=== PATIENT | female | born 1960 | race Caucasian/White ===

== ENCOUNTER 2016-11-03 14:56 | Inpatient (IN) ==
[2016-11-03] MEDS ORDERED: Vancomycin 1,250 MG in D5% in Water 250 ML IVPB ONE (17:20)
[2016-11-03] MEDS ORDERED: Piperacillin/Tazobactam 3.375 GM in D5% in Water (Mini-Bag+) 100 ML IVPB ONE (17:20)
[2016-11-03] MEDS ORDERED: Ondansetron 4 MG/2 ML VIAL IVP ONE (17:26)
--- NOTE | 2016-11-03 17:26 | Emergency Department Note ---
Disposition Clinical Impression: Cellulitis Qualifiers: Site of cellulitis: buttock Qualified Code(s): L03.317 - Cellulitis of buttock Disposition: Admitted As Inpatient Condition: Fair Time of Disposition: 19:00 General Adult HPI - General Chief complaint: ED Wound/Laceration Stated complaint: csyst on buttocks Time Seen by Provider: 11/03/16 17:08 Source: patient, family Mode of arrival: private vehicle Limitations: no limitations Nursing Notes Reviewed: Yes Vital Signs Reviewed: Yes - History of Present Illness HPI Narrative: 56-year-old female with past medical history of diabetes presents with 3-4 days of worsening abscess and cellulitis to her right buttock. The boil was initially located in the intergluteal cleft with cellulitis that extended across the majority of her right buttock. She notes associated fever and chills and nausea without vomiting. She denies any spontaneous drainage. She denies any prior history of abscess. She states that her symptoms were partially improved with 800 mg ibuprofen a few hours prior to arrival. They are worse with sitting on her buttocks. They are not changed with bowel movements. She denies recent hospitalizations or immunocompromised state. She states that her sugars usually run 150-160. She denies any associated headache, confusion, blurred vision, difficulty swallowing, chest pain or shortness of breath, cough, abdominal pain, changes in bowel movements or urination, edema. Pain Scale: 7 - Related Data Home Medications Medication Instructions Recorded Confirmed Alprazolam [Xanax] 2 mg PO TID 11/03/16 11/03/16 Budesonide/Formoterol 80/4.5 2 puff IH BID 11/03/16 11/03/16 [Symbicort 80/4.5] Calcium Carbonate/Vitamin D3 1 each PO DAILY 11/03/16 11/03/16 [Calcium 500-Vit D3 200 Tablet] Cholecalciferol (Vitamin D3) 2,000 unit PO DAILY 11/03/16 11/03/16 [Vitamin D] Donepezil [Aricept] 20 mg PO DAILY 11/03/16 11/03/16 Gabapentin [Neurontin] 800 mg PO QID 11/03/16 11/03/16 Guaifenesin [Mucinex] 600 mg PO Q12H 11/03/16 11/03/16 Metformin HCl [Metformin HCl ER] 1,500 mg PO QAM 11/03/16 11/03/16 Multivitamin [Multi-Day Vitamins] 1 each PO DAILY 11/03/16 11/03/16 OLANZapine [Zyprexa] 30 mg PO HS 11/03/16 11/03/16 Omeprazole [PriLOSEC] 80 mg PO DAILY 11/03/16 11/03/16 Pravastatin Sodium [Pravachol] 80 mg PO HS 11/03/16 11/03/16 Trazodone HCl 300 mg PO HS 11/03/16 11/03/16 Allergies Allergy/AdvReac Type Severity Reaction Status Date / Time No Known Allergies Allergy Verified 11/03/16 15:28 All systems ED: reviewed and negative except as stated. Past Medical History - Past Medical History Attestation: Yes The following information was validated with the patient. Source: patient Medical history: Reports: diabetes Psychiatric history: Reports: bipolar - Social History Smoking Status: Never smoker Alcohol use: Reports: none Drug use: Reports: none Physical Exam - Head Head exam: atraumatic, normocephalic, normal inspection - Eye Eye exam: Present: normal appearance, PERRL, EOMI - ENT ENT exam: normal exam, normal oropharynx, mucous membranes moist - Neck Neck exam: Present: normal inspection, full ROM, trachea midline - Chest Chest inspection: Present: normal inspection, symmetric chest wall rise - Respiratory Respiratory exam: Clear to auscultation bilaterally without wheezes rales or rhonchi Cardiovascular Cardiovascular exam: Present: regular rate, normal rhythm, normal heart sounds - Abdominal Exam Abdominal exam: Present: soft, Non-Tender. Absent: tenderness, distention, guarding, rebound, rigidity - Extremities Exam Extremities exam: Present: normal inspection, full ROM - Back Exam Buttocks showed borderline to the right lower intergluteal cleft along with 10 cm area of cellulitis along the right medial buttock. Margins were drawn around cellulitis with a skin marker. - Psychiatric Psychiatric exam: Present: normal affect, normal mood - Skin Skin exam: Present: warm, diaphoretic, intact, normal color - General Limitations: no limitations General appearance: alert, in no apparent distress Course - Reevaluation(s) Reevaluation #1: Blood cells elevated at 14. Lactate is normal. Chemistries are normal. Patient remains diaphoretic and ill-appearing despite Tylenol and 1-1/2 L of normal saline. She is receiving the remainder of her second liter of normal saline as well as vancomycin and Rocephin this time. CT scan is not performed yet. Patient is signed out to Dr. Yeboah who will follow the patient's imaging results and likely admit the patient after imaging. Time: 18:59 Vital Signs Temperature 98.3 F 11/03/16 15:26 Pulse Rate 99 11/03/16 15:26 Respiratory Rate 16 11/03/16 15:26 Blood Pressure 113/73 11/03/16 15:26 O2 Sat by Pulse Oximetry 94 11/03/16 15:26 Temperature 98.2 F 11/04/16 07:18 Pulse Rate 112 11/04/16 07:18 Respiratory Rate 16 11/04/16 08:09 Blood Pressure 107/67 11/04/16 08:45 O2 Sat by Pulse Oximetry 93 11/04/16 08:09 Oxygen Delivery Oxygen Delivery Nasal Cannula Medical Decision Making - Lab Data Result diagrams: 11/04/16 04:58 11/04/16 04:58 Lab Results 11/03/16 11/03/16 11/03/16 Range/Units 17:45 17:45 17:45 WBC 14.1 H (4.3-11.1) K/mcL RBC 5.08 H (3.82-4.97) M/mcL Hgb 14.1 (11.5-15.4) g/dL Hct 44.5 (35.3-44.9) % MCV 87.6 (83.0-100.0) fL MCH 27.8 L (28.0-33.3) pg MCHC 31.7 (31.6-35.5) g/dL RDW 13.3 (11.5-14.5) % Plt Count 238 (140-400) K/mcL MPV 9.3 L (9.4-12.4) fL Immature Gran % 0.4 (0-4) % Seg Neutrophils % 73.5 % Lymphocytes % 17.0 % Monocytes % 7.9 % Eosinophils % 1.0 % Basophils % 0.2 % Neutrophils # 10.4 H (1.6-8.9) K/mcL Lymphocytes # 2.4 (0.6-4.6) K/mcL Monocytes # 1.1 (0.0-1.3) K/mcL Eosinophils # 0.1 (0.0-0.6) K/mcL Basophils # 0.0 (0.0-0.2) K/mcL Sodium 139 (136-145) mEq/L Potassium 4.0 (3.5-4.5) mEq/L Chloride 102 (98-109) mEq/L Carbon Dioxide 26 (19-29) mEq/L BUN 8 (7-20) mg/dL Creatinine 0.71 (0.57-1.11) mg/dL Est GFR ( Amer) > 60 (> 60) Est GFR (Non-Af Amer) > 60 (> 60) BUN/Creatinine Ratio 11 (6-26) Glucose 101 H (70-99) mg/dL POC Glucose (58-89) Calculated Osmolality 286 (280-300) Lactic Acid 1.6 (0.5-2.2) mmol/L Calcium 9.8 (8.6-10.8) mg/dL Troponin I (0-0.03) ng/mL 11/03/16 11/03/16 Range/Units 17:45 22:36 WBC (4.3-11.1) K/mcL RBC (3.82-4.97) M/mcL Hgb (11.5-15.4) g/dL Hct (35.3-44.9) % MCV (83.0-100.0) fL MCH (28.0-33.3) pg MCHC (31.6-35.5) g/dL RDW (11.5-14.5) % Plt Count (140-400) K/mcL MPV (9.4-12.4) fL Immature Gran % (0-4) % Seg Neutrophils % % Lymphocytes % % Monocytes % % Eosinophils % % Basophils % % Neutrophils # (1.6-8.9) K/mcL Lymphocytes # (0.6-4.6) K/mcL Monocytes # (0.0-1.3) K/mcL Eosinophils # (0.0-0.6) K/mcL Basophils # (0.0-0.2) K/mcL Sodium (136-145) mEq/L Potassium (3.5-4.5) mEq/L Chloride (98-109) mEq/L Carbon Dioxide (19-29) mEq/L BUN (7-20) mg/dL Creatinine (0.57-1.11) mg/dL Est GFR ( Amer) (> 60) Est GFR (Non-Af Amer) (> 60) BUN/Creatinine Ratio (6-26) Glucose (70-99) mg/dL POC Glucose 227 H (58-89) Calculated Osmolality (280-300) Lactic Acid (0.5-2.2) mmol/L Calcium (8.6-10.8) mg/dL Troponin I 0.00 (0-0.03) ng/mL - EKG Data EKG #1 EKG attestation: Yes I reviewed and interpreted this EKG. EKG results narrative: EKG shows normal sinus rhythm at 93 with normal axis and intervals. No ST elevation or depression. No T-wave inversions or flattening. No pathologic Q waves. No old EKG available for comparison. Attestation Statement - Attestation Attestation: I examined this patient and my medical decision-making was reviewed with the FENCE POST CUTTER/PA/Advanced Practice Nurse/Resident Physician. I agree with the documented findings, disposition and treatment plan as described except to the extent set forth below. Patient emergency department with an abscess on her buttock. Onset 3 days ago. States a fever at home of 104. Denies history of the same. On examination patient has an abscess over the right buttock with a large area of cellulitis. Plan. Afebrile. Labs. CT pelvis. IV antibiotic. Likely admission. Signed out to assistant casino shift manager at 1900.
[2016-11-03] MEDS ORDERED: *HR* Morphine 2 MG/ML SYRINGE IVP ONE (17:27)
[2016-11-03] MEDS: 0.9 % Sodium Chloride 1,000 ML IVC SCH ×2 (17:48→18:37)
[2016-11-03 18:12] LABS: Basophils % 0.2 %; Eosinophils # 0.1 K/mcL (0.0-0.6); Hematocrit 44.5 % (35.3-44.9); Hemoglobin 14.1 g/dL (11.5-15.4); Immature Granulocytes % 0.4 % (0-4); Lymphocytes # 2.4 K/mcL (0.6-4.6); Mean Corpuscular HGB Conc 31.7 g/dL (31.6-35.5); Mean Corpuscular Hemoglobin 27.8 pg (28.0-33.3); Mean Corpuscular Volume 87.6 fL (83.0-100.0); Mean Platelet Volume 9.3 fL (9.4-12.4); Monocytes # 1.1 K/mcL (0.0-1.3); Monocytes % 7.9 %; Neutrophils # 10.4 K/mcL (1.6-8.9); Platelet Count 238 K/mcL (140-400); Red Blood Count 5.08 M/mcL (3.82-4.97); Red Cell Distribution Width 13.3 % (11.5-14.5); Segmented Neutrophils % 73.5 %
[2016-11-03 18:31] LABS: BUN/Creatinine Ratio 11 (6-26); Blood Urea Nitrogen 8 mg/dL (7-20); Calcium 9.8 mg/dL (8.6-10.8); Carbon Dioxide 26 mEq/L (19-29); Chloride 102 mEq/L (98-109); Glucose 101 mg/dL (70-99); Osmolality,Calculated 286 (280-300); Sodium 139 mEq/L (136-145); eGFR For African Americans > 60 (> 60); eGFR For Non-African Americans > 60 (> 60)
--- NOTE | 2016-11-03 19:10 | Emergency Department Note ---
Disposition Clinical Impression: Cellulitis Qualifiers: Site of cellulitis: buttock Qualified Code(s): L03.317 - Cellulitis of buttock Disposition: Admitted As Inpatient Condition: Fair Referrals: NO,PCP [Primary Care Provider] - Forms: ED Satisfaction Letter Time of Disposition: 19:10 General Adult HPI - General Chief complaint: ED Wound/Laceration Stated complaint: cyst on buttocks Time Seen by Provider: 11/03/16 17:08 Source: patient, family Mode of arrival: private vehicle Limitations: no limitations - History of Present Illness Pain Scale: 7 - Related Data Allergies Allergy/AdvReac Type Severity Reaction Status Date / Time No Known Allergies Allergy Verified 11/03/16 15:28 Past Medical History - Past Medical History Medical history: Reports: diabetes Psychiatric history: Reports: bipolar - Social History Smoking Status: Never smoker Alcohol use: Reports: none Drug use: Reports: none Physical Exam - General Limitations: no limitations General appearance: alert, in no apparent distress Course Vital Signs Temperature 98.3 F 11/03/16 15:26 Pulse Rate 99 11/03/16 15:26 Respiratory Rate 16 11/03/16 15:26 Blood Pressure 113/73 11/03/16 15:26 O2 Sat by Pulse Oximetry 94 11/03/16 15:26 Temperature 98.3 F 11/03/16 15:26 Pulse Rate 76 11/03/16 18:39 Respiratory Rate 18 11/03/16 18:39 Blood Pressure 124/94 11/03/16 18:39 O2 Sat by Pulse Oximetry 98 11/03/16 18:39 Oxygen Delivery Oxygen Delivery Nasal Cannula Medical Decision Making - Lab Data Lab results reviewed: Yes I reviewed the patient's lab results. Result diagrams: 11/03/16 17:45 11/03/16 17:45 Lab Results 11/03/16 11/03/16 11/03/16 Range/Units 17:45 17:45 17:45 WBC 14.1 H (4.3-11.1) K/mcL RBC 5.08 H (3.82-4.97) M/mcL Hgb 14.1 (11.5-15.4) g/dL Hct 44.5 (35.3-44.9) % MCV 87.6 (83.0-100.0) fL MCH 27.8 L (28.0-33.3) pg MCHC 31.7 (31.6-35.5) g/dL RDW 13.3 (11.5-14.5) % Plt Count 238 (140-400) K/mcL MPV 9.3 L (9.4-12.4) fL Immature Gran % 0.4 (0-4) % Seg Neutrophils % 73.5 % Lymphocytes % 17.0 % Monocytes % 7.9 % Eosinophils % 1.0 % Basophils % 0.2 % Neutrophils # 10.4 H (1.6-8.9) K/mcL Lymphocytes # 2.4 (0.6-4.6) K/mcL Monocytes # 1.1 (0.0-1.3) K/mcL Eosinophils # 0.1 (0.0-0.6) K/mcL Basophils # 0.0 (0.0-0.2) K/mcL Sodium 139 (136-145) mEq/L Potassium 4.0 (3.5-4.5) mEq/L Chloride 102 (98-109) mEq/L Carbon Dioxide 26 (19-29) mEq/L BUN 8 (7-20) mg/dL Creatinine 0.71 (0.57-1.11) mg/dL Est GFR ( Amer) > 60 (> 60) Est GFR (Non-Af Amer) > 60 (> 60) BUN/Creatinine Ratio 11 (6-26) Glucose 101 H (70-99) mg/dL Calculated Osmolality 286 (280-300) Lactic Acid 1.6 (0.5-2.2) mmol/L Calcium 9.8 (8.6-10.8) mg/dL Troponin I (0-0.03) ng/mL 11/03/16 Range/Units 17:45 WBC (4.3-11.1) K/mcL RBC (3.82-4.97) M/mcL Hgb (11.5-15.4) g/dL Hct (35.3-44.9) % MCV (83.0-100.0) fL MCH (28.0-33.3) pg MCHC (31.6-35.5) g/dL RDW (11.5-14.5) % Plt Count (140-400) K/mcL MPV (9.4-12.4) fL Immature Gran % (0-4) % Seg Neutrophils % % Lymphocytes % % Monocytes % % Eosinophils % % Basophils % % Neutrophils # (1.6-8.9) K/mcL Lymphocytes # (0.6-4.6) K/mcL Monocytes # (0.0-1.3) K/mcL Eosinophils # (0.0-0.6) K/mcL Basophils # (0.0-0.2) K/mcL Sodium (136-145) mEq/L Potassium (3.5-4.5) mEq/L Chloride (98-109) mEq/L Carbon Dioxide (19-29) mEq/L BUN (7-20) mg/dL Creatinine (0.57-1.11) mg/dL Est GFR ( Amer) (> 60) Est GFR (Non-Af Amer) (> 60) BUN/Creatinine Ratio (6-26) Glucose (70-99) mg/dL Calculated Osmolality (280-300) Lactic Acid (0.5-2.2) mmol/L Calcium (8.6-10.8) mg/dL Troponin I 0.00 (0-0.03) ng/mL - Radiology Data Radiology results reviewed: Yes I reviewed the patient's radiology results. Attestation Statement - Attestation Attestation: Care assumed from at [address] abdomen and pelvis. CT images reviewed by me showing right buttock that stranding without focal fluid collection. Patient has a tender erythematous lesion to her right buttock consistent with cellulitis. Admission to the medicine service requested.
[2016-11-03] MEDS ORDERED: Naloxone 0.4 MG/ML INJ IVP PRN (21:04)
[2016-11-03] MEDS ORDERED: *HR* Dextrose 50 % in Water (Syg) 50 ML SYRINGE IVP PRN (21:07)
[2016-11-03] MEDS ORDERED: Dextrose Gel 15 GM PO PRN ×2 (21:07)
[2016-11-03] MEDS ORDERED: D5% in Water 1,000 ML IVC PRN (21:07)
--- NOTE | 2016-11-03 21:33 | Internal Med History&Physical ---
Date of Encounter: 11/03/16 Time of Encounter: 21:28 Assessment and Plan (1) Cellulitis of buttock, right Current visit: Yes Status: Acute Impacted treat with vancomycin and Zosyn. CT scan of the pelvis is negative for abscess. Monitor the site. Pain relief (2) Diabetes mellitus Current visit: Yes Status: Chronic Start Sliding-scale insulin Qualifiers: Diabetes mellitus type: type 2 Diabetes mellitus complication status: with unspecified complications Diabetes mellitus retirement insulin use: without retirement use Qualified Code(s): E11.8 - Type 2 diabetes mellitus with unspecified complications (3) COPD (chronic obstructive pulmonary disease) Current visit: Yes Status: Chronic Continue home medications. PRN nebs Qualifiers: COPD type: unspecified COPD Qualified Code(s): J44.9 - Chronic obstructive pulmonary disease, unspecified (4) DVT prophylaxis Current visit: Yes Status: Acute Lovenox Internal Medicine - H&P: HPI Chief complaint: Pain in the right buttock Admitted From: Emergency Dept Plans for Post Hospital Care: Home History of present illness: Ms. Lockhart is a 56 year old female with the history of for diabetes, COPD, ( early dementia per her ) - presents to the emergency department with 4 day history of from pain in the right buttock, which is worsening. She reports that, it started as a pimple and is now worsening. Moderate pain, non radiating , with associated fever (apparently had temp of 104F yesterday - relieved with ibuprofen). No discharge from the site. She denies change in bowel habits from urinary symptoms. She denies abdominal pain, nausea, vomiting. She has chronic shortness of breath and does not use oxygen at home. She denies chest pain. She was evaluated in the emergency department and CT pelvis was negative for abscess. She was given vancomycin and Zosyn. She is admitted hospitalist service for further workup and management. Past Med Surg Social Fam HX - Past Medical History Medical history: COPD, dementia, diabetes Psychiatric history: bipolar - Past Surgical History Surgical History: hysterectomy - Social History Smoking Status: Never smoker Alcohol use: none Drug use: none - Additional Family History Additional family history: Reviewed and non-contributory current admission Internal Medicine - H&P: Meds Alprazolam [Xanax] 2 mg PO TID 11/03/16 [History] Budesonide/Formoterol 80/4.5 [Symbicort 80/4.5] 2 puff IH BID 11/03/16 [History ] Calcium Carbonate/Vitamin D3 [Calcium 500-Vit D3 200 Tablet] 1 each PO DAILY [History] Cholecalciferol (Vitamin D3) [Vitamin D] 2,000 unit PO DAILY 11/03/16 [History] Donepezil [Aricept] 20 mg PO DAILY 11/03/16 [History] Gabapentin [Neurontin] 800 mg PO QID 11/03/16 [History] Guaifenesin [Mucinex] 600 mg PO Q12H 11/03/16 [History] Metformin HCl [Metformin HCl ER] 1,500 mg PO QAM 11/03/16 [History] Multivitamin [Multi-Day Vitamins] 1 each PO DAILY 11/03/16 [History] OLANZapine [Zyprexa] 30 mg PO HS 11/03/16 [History] Omeprazole [PriLOSEC] 80 mg PO DAILY 11/03/16 [History] Pravastatin Sodium [Pravachol] 80 mg PO HS 11/03/16 [History] Trazodone HCl 300 mg PO HS 11/03/16 [History] Allergies No Known Allergies Allergy (Verified 11/03/16 15:28) All Systems PM: A 10-system review of systems was performed and is negative for pertinent findings except as documented above in the HPI. - Constitutional Vitals: Temp Pulse Resp BP Pulse Ox 97.5 F L 79 18 108/65 97 11/03/16 20:20 11/03/16 20:20 11/03/16 20:20 11/03/16 20:20 11/03/16 20:55 Exam: General: Not in acute distress at the time of my evaluation HEENT: Oral mucosa is moist. No conjunctival palor or scleral icterus Neck: No obvious neck swellings Lungs: Clear to auscultation Cardiac: Regular rate and rhythm. No significant murmurs Abdomen: Soft, non tender. Bowel sounds present. There is redness, local warmth and tenderness of the right buttock Genitourinary: No kingston catheter Neurological: Alert and oriented. No gross localizing deficits Psych: Not aggressive or agitated Extremities: no significant leg edema Skin: No generalized rash Internal Med - H&P Results - Labs CBC & Chem 7: 11/03/16 17:45 11/03/16 17:45 - EKG Data -: EKG Interpreted by Myself EKG shows normal: sinus rhythm Rate: normal - Impressions ITS Impressions Pelvis CT 11/03/16 17:22 IMPRESSION: Nonspecific infiltration of the subcutaneous fat of the right buttocks compatible with cellulitis without evidence of abscess. D/ / 11/03/2016 19:18:10 Nikita Spicer MD / [facility] Interpreting Provider: Nikita Spicer MD
[2016-11-03] MEDS ORDERED: Ipratropium/Albuterol Neb 3 ML IH PRN (22:00)
[2016-11-03] MEDS: *HR* HYDROcodone/Acet 5/325 mg TABLET PO PRN (22:26)
[2016-11-03] MEDS: ALPRAZolam 1 MG TABLET PO PRN (22:26)
[2016-11-03] MEDS: traZODone 50 MG TABLET PO SCH (22:26)
[2016-11-03] MEDS: OLANZapine 10 MG TAB.RAPDIS PO SCH (22:27)
[2016-11-03] MEDS: Gabapentin 400 MG CAPSULE PO SCH (22:48)
[2016-11-03] MEDS: Insulin LISPRO 300 UNITS/3 ML VIAL SQ SCH (22:52)
[2016-11-03] MEDS: Budesonide/Formoterol 80/4.5 MDI IH SCH (23:05)
[2016-11-04] MEDS: Piperacillin/Tazobactam 3.375 GM in D5% in Water (Mini-Bag+) 100 ML IVPB SCH ×3 (02:39→17:47)
[2016-11-04] MEDS: *HR* HYDROmorphone (PF) 1 MG/ML SYRINGE IVP PRN ×3 (02:46→15:13)
[2016-11-04 05:15] LABS: Basophils % 0.3 %; Eosinophils # 0.2 K/mcL (0.0-0.6); Eosinophils % 2.4 %; Hematocrit 38.7 % (35.3-44.9); Immature Granulocytes % 0.3 % (0-4); Lymphocytes # 1.6 K/mcL (0.6-4.6); Lymphocytes % 16.5 %; Mean Corpuscular HGB Conc 31.8 g/dL (31.6-35.5); Mean Corpuscular Hemoglobin 28.3 pg (28.0-33.3); Mean Platelet Volume 9.7 fL (9.4-12.4); Monocytes # 0.8 K/mcL (0.0-1.3); Platelet Count 199 K/mcL (140-400); Red Blood Count 4.35 M/mcL (3.82-4.97); Red Cell Distribution Width 13.6 % (11.5-14.5); Segmented Neutrophils % 72.5 %
[2016-11-04 05:16] LABS: Hemoglobin 12.3 g/dL (11.5-15.4)
[2016-11-04 05:29] LABS: BUN/Creatinine Ratio 11 (6-26); Blood Urea Nitrogen 8 mg/dL (7-20); Calcium 8.8 mg/dL (8.6-10.8); Carbon Dioxide 28 mEq/L (19-29); Chloride 107 mEq/L (98-109); Glucose 176 mg/dL (70-99); Magnesium 1.7 mg/dL (1.6-2.6); Osmolality,Calculated 293 (280-300); Sodium 140 mEq/L (136-145); eGFR For African Americans > 60 (> 60); eGFR For Non-African Americans > 60 (> 60)
[2016-11-04] MEDS: *HR* Enoxaparin 40 MG/0.4 ML SYRINGE SQ SCH (05:50)
[2016-11-04] MEDS: *HR* HYDROcodone/Acet 5/325 mg TABLET PO PRN ×3 (05:53→21:28)
[2016-11-04] MEDS: Budesonide/Formoterol 80/4.5 MDI IH SCH ×2 (08:09→20:52)
[2016-11-04] MEDS: Cholecalciferol (D-3) 1,000 UNIT TABLET PO SCH (08:48)
[2016-11-04] MEDS: Multivit/Ca/Min/Fe/FA 1 TAB TABLET PO SCH (08:48)
[2016-11-04] MEDS: Gabapentin 400 MG CAPSULE PO SCH ×4 (08:48→21:29)
[2016-11-04] MEDS: Insulin LISPRO 300 UNITS/3 ML VIAL SQ SCH ×4 (08:50→21:58)
[2016-11-04] MEDS ORDERED: Gabapentin 400 MG CAPSULE PO SCH (09:00)
[2016-11-04] MEDS ORDERED: NON-FORMULARY MEDICATION 1 EACH EACH (Calcium Carbonate/Vitamin D3 [Calcium 500-Vit D3 200 PO SCH (09:00)
[2016-11-04] MEDS: Vancomycin 1,250 MG in D5% in Water 250 ML IVPB SCH ×2 (09:16→20:47)
[2016-11-04] MEDS: Acetaminophen 325 MG TABLET PO PRN (15:13)
--- NOTE | 2016-11-04 16:45 | Internal Med Progress Note ---
Date of Encounter: 11/04/16 Time of Encounter: 09:45 - Assessment and plan (1) Cellulitis of buttock, right Current Visit: Yes Status: Acute Assessment and plan: Patient has skin marker outlining area, redness has not extended beyond that, it is distillery supervisor to palpation. Area appears to be pink. She does have a small, hard, pimple-like area, approximately 4 mm in diameter with dark center in right gluteal fold. She is still requiring IV pain medication for pain control. She is being treated with vancomycin and Zosyn. She had leukocytosis on arrival, it has since resolved and return to normal. 9.[address] scan of the pelvis was negative for abscess. We will continue to treat with antibiotics, monitor labs and treat pain. (2) Diabetes mellitus Current Visit: Yes Status: Chronic Assessment and plan: Continue sliding scale insulin and diabetic diet. Accu-Cheks before meals at bedtime A1c ordered for morning. There is no other A1c to compare at this time. Qualifiers: Diabetes mellitus type: type 2 Diabetes mellitus complication status: with unspecified complications Diabetes mellitus intermodal truck driver insulin use: without intermodal truck driver use Qualified Code(s): E11.8 - Type 2 diabetes mellitus with unspecified complications (3) COPD (chronic obstructive pulmonary disease) Current Visit: Yes Status: Chronic Assessment and plan: Continue home medications. Patient does have wheezing at this time, as well as a productive cough. She says this is normal for her. She recently started Symbicort at home. Continue duo nebs and Symbicort. Oxygen as needed to maintain sats greater than 92%. Qualifiers: COPD type: unspecified COPD Qualified Code(s): J44.9 - Chronic obstructive pulmonary disease, unspecified (4) DVT prophylaxis Current Visit: Yes Status: Acute Assessment and plan: Lovenox subcutaneous daily. - Time Spent With Patient less than 15 minutes - Subjective Interval history: Patient was seen and assessed this morning at approximately 9:45 AM. Patient was very drowsy, she had been medicated. Her speech was very slow and she was slow to respond. Has been said she been like this for 2 days, she has a history of this when she is ill. The redness on her right buttock has not extended beyond the lines that are marked. It does not appear to be red, more pink. Patient is still reporting pain. Patient has expiratory wheezing, this is normal for her. She denies need for treatments. Recently started Symbicort at home. She does have a productive cough that is normal for her, as well. Her abdomen is distended slightly firm, bowel sounds 4 that are hyperactive. She says this too is normal for her. - Constitutional Vitals: Temp Pulse Resp BP Pulse Ox 100.8 F H 91 17 103/67 92 11/04/16 14:39 11/04/16 11:20 11/04/16 11:20 11/04/16 11:20 11/04/16 11:20 General appearance: Present: A&O X 3, pleasant, no acute distress, answers questions appropriately - Head Head exam: Present: normal inspection - Eye Eye exam: Present: normal appearance, conjuntiva pink - ENT ENT exam: Present: mucous membranes moist, normal exam - Neck Neck exam general surgery: Present: normal inspection. Absent: lymphadenopathy , tenderness - Respiratory Respiratory exam: Present: decreased breath sounds, wheezes. Absent: rales, respiratory distress, rhonchi, stridor - Cardiovascular Cardiovascular exam: Present: RRR, +S1, +S2. Absent: bradycardia, diastolic murmur, systolic murmur, tachycardia - GI/Abdominal GI/Abdominal exam: Present: distended, firm, hyperactive bowel sounds, soft. Absent: hepatomegaly, tenderness - Extremities Exam Extremities exam: Present: normal capillary refill, warm, radial pulses palpable and symetrical. Absent: mottling, pedal edema, tenderness - Neurological Exam Neurological exam: Present: alert, altered, oriented X3, no focal deficits. Absent: facial droop, speech deficit - Skin Skin exam: Present: dry, intact, normal color, rash, warm Internal Medicine: Result - Labs CBC & Chem 7: 11/04/16 04:58 11/04/16 04:58 Labs: Short CBC 11/04/16 Range/Units 04:58 WBC 9.6 (4.3-11.1) K/mcL Hgb 12.3 D (11.5-15.4) g/dL Hct 38.7 (35.3-44.9) % Plt Count 199 (140-400) K/mcL Neutrophils # 7.0 (1.6-8.9) K/mcL BMP 11/04/16 04:58 Sodium 140 Potassium 4.0 Chloride 107 Carbon Dioxide 28 BUN 8 Creatinine 0.73 Glucose 176 H Calcium 8.8 Consult Discharge Plan - Plan Referrals: NO,PCP [Primary Care Provider] -
--- NOTE | 2016-11-04 19:00 | Electrocardiograph Report ---
[place] [id number] Test Date: 2016-11-03 Pat Name: Aicha Lockhart Department: 105 Room: 3B44 Gender: F Snow Ranger: CARMEL : 1960 Requested By: Javad Velarde Order Number: [id number] Reading MD: Tamara Bird Measurements Intervals [place] Rate: 93 P: 47 [place]: 138 QRS: 89 QRSD: 86 T: 62 QT: 332 QTc: 382 Interpretive Statements SINUS RHYTHM Electronically Signed On 11-04-2016 18:59:22 EDT by Tamara Bird
[2016-11-04] MEDS: ALPRAZolam 1 MG TABLET PO PRN (21:27)
[2016-11-04] MEDS: OLANZapine 10 MG TAB.RAPDIS PO SCH (21:27)
[2016-11-04] MEDS: traZODone 50 MG TABLET PO SCH (21:28)
[2016-11-05] MEDS: Piperacillin/Tazobactam 3.375 GM in D5% in Water (Mini-Bag+) 100 ML IVPB SCH ×3 (01:38→18:21)
[2016-11-05] MEDS: *HR* Enoxaparin 40 MG/0.4 ML SYRINGE SQ SCH (05:15)
[2016-11-05] MEDS: Acetaminophen 325 MG TABLET PO PRN ×2 (05:26→22:57)
[2016-11-05 07:17] LABS: Basophils % 0.3 %; Eosinophils # 0.3 K/mcL (0.0-0.6); Eosinophils % 2.4 %; Hematocrit 39.1 % (35.3-44.9); Hemoglobin 12.2 g/dL (11.5-15.4); Immature Granulocytes % 0.3 % (0-4); Lymphocytes # 1.5 K/mcL (0.6-4.6); Mean Corpuscular HGB Conc 31.2 g/dL (31.6-35.5); Mean Corpuscular Hemoglobin 28.2 pg (28.0-33.3); Mean Corpuscular Volume 90.3 fL (83.0-100.0); Mean Platelet Volume 9.8 fL (9.4-12.4); Monocytes # 0.8 K/mcL (0.0-1.3); Monocytes % 6.9 %; Neutrophils # 8.8 K/mcL (1.6-8.9); Platelet Count 227 K/mcL (140-400); Red Blood Count 4.33 M/mcL (3.82-4.97); Red Cell Distribution Width 13.6 % (11.5-14.5); Segmented Neutrophils % 77.1 %
[2016-11-05 07:28] LABS: BUN/Creatinine Ratio 7 (6-26); Blood Urea Nitrogen 6 mg/dL (7-20); Calcium 9.1 mg/dL (8.6-10.8); Carbon Dioxide 26 mEq/L (19-29); Chloride 102 mEq/L (98-109); Glucose 264 mg/dL (70-99); Osmolality,Calculated 289 (280-300); Potassium 3.9 mEq/L (3.5-4.5); Sodium 136 mEq/L (136-145); eGFR For African Americans > 60 (> 60); eGFR For Non-African Americans > 60 (> 60)
[2016-11-05] MEDS: Vancomycin 1,750 MG in D5% in Water 500 ML IVPB SCH (08:50)
[2016-11-05] MEDS: Multivit/Ca/Min/Fe/FA 1 TAB TABLET PO SCH (08:50)
[2016-11-05] MEDS: Gabapentin 400 MG CAPSULE PO SCH ×4 (08:50→20:40)
[2016-11-05] MEDS: Cholecalciferol (D-3) 1,000 UNIT TABLET PO SCH (08:50)
[2016-11-05] MEDS: *HR* HYDROcodone/Acet 5/325 mg TABLET PO PRN (08:53)
[2016-11-05] MEDS: 0.9 % Sodium Chloride 1,000 ML IVC SCH (08:55)
[2016-11-05] MEDS: Insulin LISPRO 300 UNITS/3 ML VIAL SQ SCH ×3 (09:11→17:19)
[2016-11-05] MEDS: Budesonide/Formoterol 80/4.5 MDI IH SCH ×2 (09:27→20:46)
[2016-11-05 10:02] LABS: Hemoglobin A1C 6.6 %
[2016-11-05 10:06] LABS: Hemoglobin A1C 6.6 %
[2016-11-05] MEDS: *HR* HYDROmorphone (PF) 1 MG/ML SYRINGE IVP PRN (13:00)
[2016-11-05] MEDS ORDERED: Lidocaine 1% 20 ML MDV INFILT ONE (14:47)
--- NOTE | 2016-11-05 14:54 | Internal Med Progress Note ---
Date of Encounter: 11/05/16 Time of Encounter: 13:40 - Assessment and plan (1) Cellulitis of buttock, right Current Visit: Yes Status: Acute Assessment and plan: concern for loculated abscess given the clinical presentation. Patient spiking temps along with associated tachycardia Surgical consult requested with Dr. Chatterjee for further evaluation for I&D will send wound cultures follow up blood cultures continue empiric IV abx therapy with Vancomycin and Zosyn Pharmacy to dose Vanco and monitor trough started on IV fluids (2) Diabetes mellitus Current Visit: Yes Status: Chronic Assessment and plan: HbA1C: 6.6 hold oral antihyperglycemic agents continue ss insulin algorithm monitor FS and BG will adjust insulin therapy as per BG readings. Qualifiers: Diabetes mellitus type: type 2 Diabetes mellitus complication status: with unspecified complications Diabetes mellitus chcf insulin use: without chcf use Qualified Code(s): E11.8 - Type 2 diabetes mellitus with unspecified complications (3) COPD (chronic obstructive pulmonary disease) Current Visit: Yes Status: Chronic Assessment and plan: Not in acute exacerbation continue home meds O2 supplementation as needed Qualifiers: COPD type: unspecified COPD Qualified Code(s): J44.9 - Chronic obstructive pulmonary disease, unspecified (4) DVT prophylaxis Current Visit: Yes Status: Acute Assessment and plan: Lovenox SQ - Subjective Interval history: Patient seen and examined with present at bedside. Patient is admitted for right buttock erythema concerning for cellulitis. Pt has underlying dementia and mental status waxes and wanes. At this time she is AAO x 3. I examined the wound site, pt appears to have perirectal wound that is currently oozing yellow purulent discharge associated with fevers, Tmax of 101.3 earlier this morning despite being on empiric abx therapy. Concern for an loculated abscess. Surgery consult with Dr. Chatterjee has been placed, patient will be evaluated by surgery later today. - Constitutional Vitals: Temp Pulse Resp BP Pulse Ox 98.0 F 103 17 106/68 92 11/05/16 08:13 11/05/16 08:13 11/05/16 08:13 11/05/16 08:13 11/05/16 08:13 General appearance: Present: A&O X 3, pleasant, no acute distress, obese, answers questions appropriately - Head Head exam: Present: atraumatic, normocephalic - Eye Eye exam: Present: normal appearance, conjuntiva pink, sclera anicteric - Respiratory Respiratory exam: Absent: respiratory distress, wheezes - Cardiovascular Cardiovascular exam: Present: +S1, +S2, tachycardia - GI/Abdominal GI/Abdominal exam: Present: normal bowel sounds, soft. Absent: tenderness - Extremities Exam Extremities exam: Present: warm, radial pulses palpable and symetrical. Absent : calf tenderness - Skin Additional comments: right perirectal ulceration noted with purulent discharge, surrounding erythema noted Internal Medicine: Result - Labs CBC & Chem 7: 11/05/16 06:22 11/05/16 06:22 Labs: Short CBC 11/05/16 Range/Units 06:22 WBC 11.5 H (4.3-11.1) K/mcL Hgb 12.2 (11.5-15.4) g/dL Hct 39.1 (35.3-44.9) % Plt Count 227 (140-400) K/mcL Neutrophils # 8.8 (1.6-8.9) K/mcL BMP 11/05/16 06:22 Sodium 136 Potassium 3.9 Chloride 102 Carbon Dioxide 26 BUN 6 L Creatinine 0.82 Glucose 264 H Calcium 9.1 Consult Discharge Plan - Plan Referrals: NO,PCP [Primary Care Provider] -
--- NOTE | 2016-11-05 14:55 | General Surgery Consult Note ---
Date of Encounter: 11/05/16 Time of Encounter: 14:45 Assessment and Plan (1) Cellulitis of buttock, right Current Visit: Yes Status: Acute Plan for incision and drainage to be complete at bedside today IV antibiotics- Zosyn and vancomycin Supportive care and pain control Daily wound care after incision and drainage completely Wound cultures History of Present Illness Consult date: 11/05/16 Reason for consult: other (right buttock abscess) Requesting physician: Violeta Mendoza History of present illness: Mrs. Lockhart is a 56 -year-old female who presented to the emergency department with complaints of right buttock abscess for 4 days. She was admitted to the hospital and treated with IV antibiotic therapy. She did initially have a CAT scan which showed no evidence of abscess formation. She now has purulent drainage from the right buttock consistent with developing abscess. She has had persistent fevers and she states they have been as high as 104 degrees. She states that she has never had anything like this in the past. She states it started as a pimple and progressed to this point. She does not recall being bit in her having an injury to her right buttock. We have been asked to see and evaluate the patient for further recommendations Past Med Surg Social Fam HX - Past Medical History Source: patient, old records reviewed Medical history: COPD (emphysema), dementia, diabetes, other (Early Alzheimer's , fibromyalgia) Psychiatric history: bipolar - Past Surgical History Surgical History: hysterectomy, other (T&A, D&C, Hip implant for bladder control , excision of cysts from lower extremities) - Social History Smoking Status: Never smoker Alcohol use: none Drug use: none Medications and Allergies Alprazolam [Xanax] 2 mg PO TID 11/03/16 [History] Budesonide/Formoterol 80/4.5 [Symbicort 80/4.5] 2 puff IH BID 11/03/16 [History ] Calcium Carbonate/Vitamin D3 [Calcium 500-Vit D3 200 Tablet] 1 each PO DAILY [History] Cholecalciferol (Vitamin D3) [Vitamin D] 2,000 unit PO DAILY 11/03/16 [History] Donepezil [Aricept] 20 mg PO DAILY 11/03/16 [History] Gabapentin [Neurontin] 800 mg PO QID 11/03/16 [History] Guaifenesin [Mucinex] 600 mg PO Q12H 11/03/16 [History] Metformin HCl [Metformin HCl ER] 1,500 mg PO QAM 11/03/16 [History] Multivitamin [Multi-Day Vitamins] 1 each PO DAILY 11/03/16 [History] OLANZapine [Zyprexa] 30 mg PO HS 11/03/16 [History] Omeprazole [PriLOSEC] 80 mg PO DAILY 11/03/16 [History] Pravastatin Sodium [Pravachol] 80 mg PO HS 11/03/16 [History] Trazodone HCl 300 mg PO HS 11/03/16 [History] Allergies No Known Allergies Allergy (Verified 11/03/16 15:28) Review of Systems All systems PM: reviewed and no additional remarkable complaints except as stated (in the HPI) All systems PM: A 10-system review of systems was performed and is negative for pertinent findings except as documented above in the HPI. General Surgery Exam Initial Vital Signs Temp Pulse Resp BP Pulse Ox 98.3 F 99 16 113/73 94 11/03/16 15:26 11/03/16 15:26 11/03/16 15:26 11/03/16 15:26 11/03/16 15:26 - General physical appearance well developed, well nourished, no distress, moderate pain (Localized to right buttock) - Eyes normal ocular movement - ENT atraumatic, normocephalic - Neck trachea midline - Respiratory normal respiratory effort - Cardiovascular Cardiovascular exam: Present: tachycardia - Abdomen Abdomen general surgery: Present: soft, non tender - Rectum Rectum: Present: other (Right buttock with abscess noted, moderate surrounding erythema and induration noted, tender to palpation, small amount of purulent drainage noted without odor) - Integumentary Integumentary general surgery: Present: warm and dry - Neurologic Present: CN 2-12 grossly intact - Psychiatric Psychiatric general surgery: Present: oriented to person, oriented to place, speech is normal Exam Initial Vital Signs Temp Pulse Resp BP Pulse Ox 98.3 F 99 16 113/73 94 11/03/16 15:26 11/03/16 15:26 11/03/16 15:26 11/03/16 15:26 11/03/16 15:26 Results - Labs 11/05/16 06:22 11/05/16 06:22 Abnormal lab results WBC 11.5 K/mcL (4.3-11.1) H 11/05/16 06:22 MCHC 31.2 g/dL (31.6-35.5) L 11/05/16 06:22 BUN 6 mg/dL (7-20) L 11/05/16 06:22 Glucose 264 mg/dL (70-99) H 11/05/16 06:22 POC Glucose 192 (58-89) H 11/04/16 19:24 Hemoglobin A1c 6.6 % (-5.6) H 11/05/16 08:43 Vancomycin Trough 6.6 mcg/mL (10-20) L 11/05/16 06:22 Diabetes panel 11/05/16 11/05/16 11/05/16 Range/Units 06:22 06:22 08:43 Sodium 136 (136-145) mEq/L Potassium 3.9 (3.5-4.5) mEq/L Chloride 102 (98-109) mEq/L Carbon Dioxide 26 (19-29) mEq/L BUN 6 L (7-20) mg/dL Creatinine 0.82 (0.57-1.11) mg/dL Glucose 264 H (70-99) mg/dL Hemoglobin A1c 6.6 H 6.6 H ( - 5.6) % Calcium 9.1 (8.6-10.8) mg/dL Calcium panel 11/05/16 Range/Units 06:22 Calcium 9.1 (8.6-10.8) mg/dL Pituitary panel 11/05/16 Range/Units 06:22 Sodium 136 (136-145) mEq/L Potassium 3.9 (3.5-4.5) mEq/L Chloride 102 (98-109) mEq/L Carbon Dioxide 26 (19-29) mEq/L BUN 6 L (7-20) mg/dL Creatinine 0.82 (0.57-1.11) mg/dL Glucose 264 H (70-99) mg/dL Calcium 9.1 (8.6-10.8) mg/dL Adrenal panel 11/05/16 Range/Units 06:22 Sodium 136 (136-145) mEq/L Potassium 3.9 (3.5-4.5) mEq/L Chloride 102 (98-109) mEq/L Carbon Dioxide 26 (19-29) mEq/L BUN 6 L (7-20) mg/dL Creatinine 0.82 (0.57-1.11) mg/dL Glucose 264 H (70-99) mg/dL Calcium 9.1 (8.6-10.8) mg/dL All other labs normal. - Imaging Additional studies: Pelvis CT 11/03/16 17:22 IMPRESSION: Nonspecific infiltration of the subcutaneous fat of the right buttocks compatible with cellulitis without evidence of abscess. D/ / 11/03/2016 19:18:10 Nikita Spicer MD / [email or web address] Interpreting Provider: Nikita Spicer MD Consult Discharge Plan - Plan Referrals: NO,PCP [Primary Care Provider] -
[2016-11-05] MEDS ORDERED: *HR* HYDROmorphone (PF) 1 MG/ML SYRINGE IVP ONE (15:12)
[2016-11-05] MEDS ORDERED: *HR* HYDROmorphone (PF) 1 MG/ML SYRINGE ONE (15:15)
--- NOTE | 2016-11-05 15:45 | General Surgery Procedure Note ---
Date of procedure: 11/05/16 Pre-op diagnosis: Right buttock abscess Post-op diagnosis: same Procedure: After informed consent was obtained and timeout was performed, the patient was placed in the left lateral position. Her right buttock was prepped with Betadine. After prepping the right buttock, she was localized with 10 mL's of 1 % lidocaine. After achieving appropriate localization to the affected area, a cruciate incision was made over the most fluctuant area of the abscess. There is a drainage of a small amount of purulent drainage without odor. Cultures were obtained for Gram stain, aerobic culture, anaerobic culture. The wound cavity was completely decompressed and then packed with quarter inch plain gauze. I covered the wound with an Allevyn dressing and taped to secure. The patient tolerated this well. There was minimal blood loss noted. No complications noted. Complications: None Anesthesia: local (1% lidocaine (10ml used)) Surgeon: Tamara Catalan Estimated blood loss (cc): 1 Pathology: other (Cultures sent for Gram stain, aerobic culture, anaerobic culture) Condition: stable Disposition: no change
[2016-11-05] MEDS: traZODone 50 MG TABLET PO SCH (20:40)
[2016-11-05] MEDS: OLANZapine 10 MG TAB.RAPDIS PO SCH (20:40)
[2016-11-06] MEDS: *HR* HYDROcodone/Acet 5/325 mg TABLET PO PRN ×4 (00:07→20:17)
[2016-11-06] MEDS: Vancomycin 1,750 MG in D5% in Water 500 ML IVPB SCH ×3 (02:04→22:47)
[2016-11-06] MEDS: Piperacillin/Tazobactam 3.375 GM in D5% in Water (Mini-Bag+) 100 ML IVPB SCH ×3 (02:05→18:04)
[2016-11-06] MEDS: 0.9 % Sodium Chloride 1,000 ML IVC SCH (02:06)
[2016-11-06] MEDS: Insulin LISPRO 300 UNITS/3 ML VIAL SQ SCH ×5 (02:06→21:35)
[2016-11-06 05:02] LABS: Basophils % 0.3 %; Eosinophils # 0.3 K/mcL (0.0-0.6); Hematocrit 37.5 % (35.3-44.9); Hemoglobin 11.4 g/dL (11.5-15.4); Immature Granulocytes % 0.5 % (0-4); Lymphocytes % 23.2 %; Mean Corpuscular HGB Conc 30.4 g/dL (31.6-35.5); Mean Corpuscular Hemoglobin 27.6 pg (28.0-33.3); Mean Corpuscular Volume 90.8 fL (83.0-100.0); Mean Platelet Volume 9.6 fL (9.4-12.4); Monocytes # 0.6 K/mcL (0.0-1.3); Monocytes % 7.1 %; Neutrophils # 5.7 K/mcL (1.6-8.9); Platelet Count 237 K/mcL (140-400); Red Blood Count 4.13 M/mcL (3.82-4.97); Red Cell Distribution Width 13.5 % (11.5-14.5); Segmented Neutrophils % 65.9 %
[2016-11-06 05:15] LABS: BUN/Creatinine Ratio 4 (6-26); Blood Urea Nitrogen 3 mg/dL (7-20); Calcium 9.2 mg/dL (8.6-10.8); Carbon Dioxide 28 mEq/L (19-29); Chloride 104 mEq/L (98-109); Glucose 276 mg/dL (70-99); Osmolality,Calculated 296 (280-300); Phosphorous 3.8 mg/dL (2.3-4.7); Sodium 140 mEq/L (136-145); eGFR For African Americans > 60 (> 60); eGFR For Non-African Americans > 60 (> 60)
[2016-11-06] MEDS: *HR* Enoxaparin 40 MG/0.4 ML SYRINGE SQ SCH (05:41)
[2016-11-06] MEDS: Multivit/Ca/Min/Fe/FA 1 TAB TABLET PO SCH (09:00)
[2016-11-06] MEDS: Gabapentin 400 MG CAPSULE PO SCH ×4 (09:00→21:49)
[2016-11-06] MEDS: Cholecalciferol (D-3) 1,000 UNIT TABLET PO SCH (09:01)
[2016-11-06] MEDS: Budesonide/Formoterol 80/4.5 MDI IH SCH ×2 (10:40→21:41)
--- NOTE | 2016-11-06 15:35 | Internal Med Progress Note ---
Date of Encounter: 11/06/16 Time of Encounter: 15:05 - Assessment and plan (1) Cellulitis of buttock, right Current Visit: Yes Status: Acute Assessment and plan: s/p I&D of perirectal abscess surgical consultation appreciated wound cultures prelim report positive for gram positive cocci follow up blood cultures continue empiric IV abx therapy with Vancomycin and Zosyn Pharmacy to dose Vanco and monitor trough d/c IV fluids (2) Diabetes mellitus Current Visit: Yes Status: Chronic Assessment and plan: HbA1C: 6.6 hold oral antihyperglycemic agents continue ss insulin algorithm monitor FS and BG will adjust insulin therapy as per BG readings. Qualifiers: Diabetes mellitus type: type 2 Diabetes mellitus complication status: with unspecified complications Diabetes mellitus intermediate insulin use: without termite exterminator helper use Qualified Code(s): E11.8 - Type 2 diabetes mellitus with unspecified complications (3) COPD (chronic obstructive pulmonary disease) Current Visit: Yes Status: Chronic Assessment and plan: Not in acute exacerbation continue home meds O2 supplementation as needed Qualifiers: COPD type: unspecified COPD Qualified Code(s): J44.9 - Chronic obstructive pulmonary disease, unspecified (4) DVT prophylaxis Current Visit: Yes Status: Acute Assessment and plan: Lovenox SQ - Subjective Interval history: Patient seen and examined at bedside. Resting in bed and reports of feeling better compared to previous day. Pain better controlled. s/p I&D of perirectal abscess. No overnight issues reported. - Constitutional Vitals: Temp Pulse Resp BP Pulse Ox 97.8 F 78 13 127/80 96 11/06/16 11:45 11/06/16 11:45 11/06/16 11:45 11/06/16 11:45 11/06/16 11:45 General appearance: Present: A&O X 3, pleasant, no acute distress, obese, answers questions appropriately - Head Head exam: Present: atraumatic, normocephalic - Eye Eye exam: Present: normal appearance, conjuntiva pink, sclera anicteric - Respiratory Respiratory exam: Present: CTAB. Absent: respiratory distress, wheezes - Cardiovascular Cardiovascular exam: Present: RRR, +S1, +S2. Absent: diastolic murmur, gallop, rubs, systolic murmur - GI/Abdominal GI/Abdominal exam: Present: normal bowel sounds, soft, no peritoneal signs. Absent: distended, tenderness - Extremities Exam Extremities exam: Present: warm, radial pulses palpable and symetrical. Absent : calf tenderness, pedal edema - Neurological Exam Neurological exam: Present: alert, oriented X3 - Psychiatric Psychiatric exam: Present: normal affect, normal mood - Skin Additional comments: right perirectal abscess s/p I&D-wound site clean, packing in place, surrounding erythema persists but improved Internal Medicine: Result - Labs CBC & Chem 7: 11/06/16 04:13 11/06/16 04:13 Labs: Short CBC 11/06/16 Range/Units 04:13 WBC 8.6 (4.3-11.1) K/mcL Hgb 11.4 L (11.5-15.4) g/dL Hct 37.5 (35.3-44.9) % Plt Count 237 (140-400) K/mcL Neutrophils # 5.7 (1.6-8.9) K/mcL BMP 11/06/16 04:13 Sodium 140 Potassium 4.0 Chloride 104 Carbon Dioxide 28 BUN 3 L Creatinine 0.75 Glucose 276 H Calcium 9.2 Consult Discharge Plan - Plan Referrals: NO,PCP [Primary Care Provider] -
--- NOTE | 2016-11-06 17:28 | General Surgery Progress Note ---
Date of Encounter: 11/06/16 Time of Encounter: 14:00 - Assessment and Plan (1) Cellulitis of buttock, right Current Visit: Yes Status: Acute I&D complete 11/05/16 Cultures- preliminary Gram positive cocci IV antibiotics- Zosyn and vancomycin Supportive care and pain control Daily wound care after incision and drainage completely Subjective Patient reports: no new complaints, feels better, still having pain, pain is less, fever (Tmax 102.8 last evening) Objective Vital Signs - Last 8 Hours Temp Pulse Resp BP Pulse Ox 11/06/16 15:59 97.6 F 76 16 100/65 96 Intake and Output 11/06/16 11/06/16 11/06/16 07:59 15:59 23:59 Output Total 600 / 600 Balance -600 / 120 Output: Urine 600 / 600 Other: Blood Glucose* 160 - General physical appearance well developed, well nourished, no distress, chronically ill - Eyes normal ocular movement - ENT normal mucosa, atraumatic, normocephalic - Neck Neck exam: trachea midline - Respiratory normal respiratory effort - Abdomen Abdomen: Present: bowel sounds present, soft, non tender - Incision Incision: Present: erythema (improved), purulent (moderate amount), indurated ( improved), open - Integumentary no rash - Neurologic CN 2-12 grossly intact - Psychiatric oriented to person, oriented to place - Labs 11/06/16 04:13 11/06/16 04:13 Consult Discharge Plan - Plan Referrals: NO,PCP [Primary Care Provider] -
[2016-11-06] MEDS: traZODone 50 MG TABLET PO SCH (21:50)
[2016-11-06] MEDS: OLANZapine 10 MG TAB.RAPDIS PO SCH (21:50)
[2016-11-06] MEDS: *HR* HYDROmorphone (PF) 1 MG/ML SYRINGE IVP PRN (22:01)
[2016-11-06] MEDS: ALPRAZolam 1 MG TABLET PO PRN (22:01)
[2016-11-07] MEDS: Piperacillin/Tazobactam 3.375 GM in D5% in Water (Mini-Bag+) 100 ML IVPB SCH ×3 (02:06→17:15)
[2016-11-07] MEDS: Acetaminophen 325 MG TABLET PO PRN ×2 (04:11→12:22)
[2016-11-07 05:45] LABS: Basophils % 0.5 %; Eosinophils # 0.5 K/mcL (0.0-0.6); Eosinophils % 8.1 %; Hematocrit 36.7 % (35.3-44.9); Hemoglobin 11.3 g/dL (11.5-15.4); Immature Granulocytes % 0.4 % (0-4); Lymphocytes # 1.4 K/mcL (0.6-4.6); Mean Corpuscular HGB Conc 30.8 g/dL (31.6-35.5); Mean Corpuscular Hemoglobin 27.8 pg (28.0-33.3); Mean Corpuscular Volume 90.4 fL (83.0-100.0); Mean Platelet Volume 9.4 fL (9.4-12.4); Monocytes # 0.4 K/mcL (0.0-1.3); Monocytes % 6.5 %; Neutrophils # 3.5 K/mcL (1.6-8.9); Platelet Count 229 K/mcL (140-400); Red Blood Count 4.06 M/mcL (3.82-4.97); Red Cell Distribution Width 13.5 % (11.5-14.5); Segmented Neutrophils % 60.5 %
[2016-11-07 05:56] LABS: BUN/Creatinine Ratio 5 (6-26); Calcium 9.2 mg/dL (8.6-10.8); Carbon Dioxide 31 mEq/L (19-29); Chloride 104 mEq/L (98-109); Glucose 146 mg/dL (70-99); Osmolality,Calculated 291 (280-300); Phosphorous 4.2 mg/dL (2.3-4.7); Sodium 141 mEq/L (136-145); eGFR For African Americans > 60 (> 60); eGFR For Non-African Americans > 60 (> 60)
[2016-11-07 05:58] LABS: Blood Urea Nitrogen 3 mg/dL (7-20)
[2016-11-07] MEDS: *HR* HYDROcodone/Acet 5/325 mg TABLET PO PRN ×3 (06:08→17:16)
[2016-11-07] MEDS: *HR* Enoxaparin 40 MG/0.4 ML SYRINGE SQ SCH (06:08)
[2016-11-07] MEDS: Insulin LISPRO 300 UNITS/3 ML VIAL SQ SCH ×4 (07:37→20:46)
[2016-11-07] MEDS: Gabapentin 400 MG CAPSULE PO SCH ×4 (07:37→20:49)
[2016-11-07] MEDS: Multivit/Ca/Min/Fe/FA 1 TAB TABLET PO SCH (07:38)
[2016-11-07] MEDS: Cholecalciferol (D-3) 1,000 UNIT TABLET PO SCH (07:38)
[2016-11-07] MEDS: Vancomycin 1,750 MG in D5% in Water 500 ML IVPB SCH ×2 (08:20→22:08)
[2016-11-07] MEDS: *HR* HYDROmorphone (PF) 1 MG/ML SYRINGE IVP PRN (08:21)
[2016-11-07] MEDS: Budesonide/Formoterol 80/4.5 MDI IH SCH ×2 (10:57→20:00)
[2016-11-07] MEDS: ALPRAZolam 1 MG TABLET PO PRN ×2 (12:21→20:50)
--- NOTE | 2016-11-07 13:51 | Internal Med Progress Note ---
Date of Encounter: 11/07/16 Time of Encounter: 12:35 - Assessment and plan (1) Cellulitis of buttock, right Current Visit: Yes Status: Acute Assessment and plan: s/p I&D of perirectal abscess surgical consultation appreciated wound cultures prelim report positive for gram positive cocci follow up blood cultures continue empiric IV abx therapy with Vancomycin and Zosyn Pharmacy to dose Vanco and monitor trough will likely be discharged with PO abx as per sensitives of culture report daily wound care (2) Diabetes mellitus Current Visit: Yes Status: Chronic Assessment and plan: HbA1C: 6.6 hold oral antihyperglycemic agents continue ss insulin algorithm monitor FS and BG will adjust insulin therapy as per BG readings. Qualifiers: Diabetes mellitus type: type 2 Diabetes mellitus complication status: with unspecified complications Diabetes mellitus manager terminal insulin use: without residential use Qualified Code(s): E11.8 - Type 2 diabetes mellitus with unspecified complications (3) COPD (chronic obstructive pulmonary disease) Current Visit: Yes Status: Chronic Assessment and plan: Not in acute exacerbation continue home meds O2 supplementation as needed Will obtain O2 qualification study for home O2 supplementation Qualifiers: COPD type: unspecified COPD Qualified Code(s): J44.9 - Chronic obstructive pulmonary disease, unspecified (4) DVT prophylaxis Current Visit: Yes Status: Acute Assessment and plan: Lovenox SQ - Subjective Interval history: Patient seen and examined with family present at bedside. Patient reports of feeling better compared to the previous day. Reports of improvement in pain. Patient's states that he will be able to the wound care and will not be needing home health services. Patient states she is not on home oxygen but feels better with oxygen, has documented history of COPD. Will obtain O2 qualification test and make arrangements for home oxygen therapy if patient qualifies. - Constitutional Vitals: Temp Pulse Resp BP Pulse Ox 99.0 F 87 15 118/75 95 11/07/16 11:40 11/07/16 11:40 11/07/16 11:40 11/07/16 11:40 11/07/16 11:40 General appearance: Present: A&O X 3, pleasant, no acute distress, obese, answers questions appropriately - Head Head exam: Present: atraumatic, normocephalic - Eye Eye exam: Present: conjuntiva pink, sclera anicteric - Respiratory Respiratory exam: Present: CTAB. Absent: accessory muscle use, rales, rhonchi, wheezes - Cardiovascular Cardiovascular exam: Present: RRR, +S1, +S2. Absent: diastolic murmur, gallop, rubs, systolic murmur - GI/Abdominal GI/Abdominal exam: Present: normal bowel sounds, soft, no peritoneal signs. Absent: distended, tenderness - Extremities Exam Extremities exam: Present: warm, radial pulses palpable and symetrical. Absent : calf tenderness, cyanotic, pedal edema - Neurological Exam Neurological exam: Present: alert, oriented X3 - Psychiatric Psychiatric exam: Present: normal affect, normal mood - Skin Additional comments: right perirectal wound packing intact, surrounding erythema resolved Internal Medicine: Result - Labs CBC & Chem 7: 11/07/16 05:37 11/07/16 05:37 Labs: Short CBC 11/07/16 Range/Units 05:37 WBC 5.7 (4.3-11.1) K/mcL Hgb 11.3 L (11.5-15.4) g/dL Hct 36.7 (35.3-44.9) % Plt Count 229 (140-400) K/mcL Neutrophils # 3.5 (1.6-8.9) K/mcL BMP 11/07/16 05:37 Sodium 141 Potassium 4.0 Chloride 104 Carbon Dioxide 31 H BUN 3 L Creatinine 0.63 Glucose 146 H Calcium 9.2 Consult Discharge Plan - Plan Referrals: Josefina Kyle [Other] - 11/11/16 11:00 am
--- NOTE | 2016-11-07 15:39 | General Surgery Progress Note ---
Date of Encounter: 11/07/16 Time of Encounter: 15:00 - Assessment and Plan (1) Cellulitis of buttock, right Current Visit: Yes Status: Acute I&D complete 11/05/16 Cultures- MRSA May transition to PO bactrim Supportive care and pain control Daily wound care- will need home health at discharge and continue packing for 1 week at home Subjective Patient reports: no new complaints, feels better, still having pain, pain is less, bowel movement, afebrile Objective Vital Signs - Last 8 Hours Temp Pulse Resp BP Pulse Ox 11/07/16 11:40 99.0 F 87 15 118/75 95 11/07/16 10:58 16 96 Intake and Output 11/06/16 11/07/16 11/07/16 23:59 07:59 15:59 Intake Total 340 / 340 600 / 600 840 / 840 Output Total 200 / 200 Balance 340 / 340 400 / 400 840 / 840 Intake: IV Fluids 100 / 100 600 / 600 Zosyn 3.375 GM In 100 / 100 100 / 100 Dextrose 5% (Minibag+) 100 ML 100 ML @ 25 mls/hr IVPB Q8H [facility] Rx#: [id number] Vancocin 1,750 MG In 500 / 500 Dextrose 5% 500 ML @ 333. 34 mls/hr IVPB Q12H [facility] Rx#:[id number] Oral 240 / 240 840 / 840 Output: Urine 200 / 200 Other: Meal Dinner Lunch Percent of Meal Consumed 100% 100% Stool Size Large Stool Consistency soft formed Stool Color Brown # Voids 1 1 # Bowel Movements 1 Weight 81.647 kg Blood Glucose* 187 130 223 Patient Weight 11/07/16 23:59 Weight 81.647 kg - General physical appearance well developed, well nourished, no distress, chronically ill - Eyes normal ocular movement - ENT normal mucosa, atraumatic, normocephalic - Neck Neck exam: trachea midline - Respiratory normal respiratory effort, clear to auscultation - Abdomen Abdomen: Present: soft, non tender - Integumentary other (right buttock abscess open and draining moderate amount of purulent drainage, erythema and induration significantly improved, tenderness improved) - Psychiatric oriented to person, oriented to place - Labs 11/07/16 05:37 11/07/16 05:37 Diabetes panel 11/07/16 Range/Units 05:37 Sodium 141 (136-145) mEq/L Potassium 4.0 (3.5-4.5) mEq/L Chloride 104 (98-109) mEq/L Carbon Dioxide 31 H (19-29) mEq/L BUN 3 L (7-20) mg/dL Creatinine 0.63 (0.57-1.11) mg/dL Glucose 146 H (70-99) mg/dL Calcium 9.2 (8.6-10.8) mg/dL Calcium panel 11/07/16 Range/Units 05:37 Calcium 9.2 (8.6-10.8) mg/dL Phosphorus 4.2 (2.3-4.7) mg/dL Pituitary panel 11/07/16 Range/Units 05:37 Sodium 141 (136-145) mEq/L Potassium 4.0 (3.5-4.5) mEq/L Chloride 104 (98-109) mEq/L Carbon Dioxide 31 H (19-29) mEq/L BUN 3 L (7-20) mg/dL Creatinine 0.63 (0.57-1.11) mg/dL Glucose 146 H (70-99) mg/dL Calcium 9.2 (8.6-10.8) mg/dL Adrenal panel 11/07/16 Range/Units 05:37 Sodium 141 (136-145) mEq/L Potassium 4.0 (3.5-4.5) mEq/L Chloride 104 (98-109) mEq/L Carbon Dioxide 31 H (19-29) mEq/L BUN 3 L (7-20) mg/dL Creatinine 0.63 (0.57-1.11) mg/dL Glucose 146 H (70-99) mg/dL Calcium 9.2 (8.6-10.8) mg/dL Consult Discharge Plan - Plan Additional Instructions: Wound care- cleanse right buttock with soap and water, pat dry, pack with 1/4 inch plain gauze, cover with dry dressing and tape to secure daily for 1 week. Referrals: Josefina Kyle [Other] - 11/11/16 11:00 am
[2016-11-07] MEDS: traZODone 50 MG TABLET PO SCH (20:50)
[2016-11-07] MEDS: OLANZapine 10 MG TAB.RAPDIS PO SCH (20:50)
[2016-11-08] MEDS: Piperacillin/Tazobactam 3.375 GM in D5% in Water (Mini-Bag+) 100 ML IVPB SCH ×2 (02:01→08:49)
[2016-11-08 04:28] LABS: Basophils % 0.6 %; Eosinophils # 0.5 K/mcL (0.0-0.6); Eosinophils % 9.9 %; Hematocrit 39.1 % (35.3-44.9); Hemoglobin 11.8 g/dL (11.5-15.4); Immature Granulocytes % 0.6 % (0-4); Lymphocytes # 1.4 K/mcL (0.6-4.6); Lymphocytes % 27.5 %; Mean Corpuscular HGB Conc 30.2 g/dL (31.6-35.5); Mean Corpuscular Hemoglobin 27.4 pg (28.0-33.3); Mean Corpuscular Volume 90.7 fL (83.0-100.0); Mean Platelet Volume 9.4 fL (9.4-12.4); Monocytes # 0.4 K/mcL (0.0-1.3); Monocytes % 7.3 %; Neutrophils # 2.7 K/mcL (1.6-8.9); Platelet Count 294 K/mcL (140-400); Red Blood Count 4.31 M/mcL (3.82-4.97); Red Cell Distribution Width 13.2 % (11.5-14.5); Segmented Neutrophils % 54.1 %
[2016-11-08 04:39] LABS: BUN/Creatinine Ratio 5 (6-26); Calcium 9.5 mg/dL (8.6-10.8); Carbon Dioxide 31 mEq/L (19-29); Chloride 102 mEq/L (98-109); Glucose 221 mg/dL (70-99); Magnesium 2.3 mg/dL (1.6-2.6); Osmolality,Calculated 298 (280-300); Phosphorous 4.2 mg/dL (2.3-4.7); Potassium 3.9 mEq/L (3.5-4.5); Sodium 142 mEq/L (136-145); eGFR For African Americans > 60 (> 60); eGFR For Non-African Americans > 60 (> 60)
[2016-11-08 04:40] LABS: Blood Urea Nitrogen 4 mg/dL (7-20)
[2016-11-08] MEDS: *HR* Enoxaparin 40 MG/0.4 ML SYRINGE SQ SCH (06:31)
[2016-11-08] MEDS: Cholecalciferol (D-3) 1,000 UNIT TABLET PO SCH (08:48)
[2016-11-08] MEDS: Gabapentin 400 MG CAPSULE PO SCH ×2 (08:48→13:40)
[2016-11-08] MEDS: Multivit/Ca/Min/Fe/FA 1 TAB TABLET PO SCH (08:48)
[2016-11-08] MEDS: Insulin LISPRO 300 UNITS/3 ML VIAL SQ SCH ×2 (08:49→13:41)
[2016-11-08] MEDS: Budesonide/Formoterol 80/4.5 MDI IH SCH (09:21)
[2016-11-08] MEDS: *HR* HYDROcodone/Acet 5/325 mg TABLET PO PRN (09:56)
[2016-11-08 11:33] VITALS: BP 114/74
--- NOTE | 2016-11-08 12:27 | Discharge Summary ---
Date of Encounter: 11/08/16 Time of Encounter: 12:22 - Discharge Diagnosis (1) Cellulitis of buttock, right Priority: Primary Status: Acute (2) Diabetes mellitus Priority: Secondary Status: Chronic Qualifiers: Diabetes mellitus type: type 2 Diabetes mellitus complication status: with unspecified complications Diabetes mellitus chcf insulin use: without manager of product use Qualified Code(s): E11.8 - Type 2 diabetes mellitus with unspecified complications (3) COPD (chronic obstructive pulmonary disease) Priority: Secondary Status: Chronic Qualifiers: COPD type: unspecified COPD Qualified Code(s): J44.9 - Chronic obstructive pulmonary disease, unspecified (4) DVT prophylaxis Priority: Secondary Status: Acute - Discharge Medications Prescriptions: HYDROcodone/Acet 5/325 mg [[place] 5-325 mg] 1 tab PO Q6HR PRN #20 tablet PRN Reason: Severe Pain Sulfamethoxazole/Trimeth DS [Bactrim DS] 1 each PO BID #15 tablet Home Medications: Alprazolam [Xanax] 2 mg PO TID 11/03/16 [History] Budesonide/Formoterol 80/4.5 [Symbicort 80/4.5] 2 puff IH BID 11/03/16 [History ] Calcium Carbonate/Vitamin D3 [Calcium 500-Vit D3 200 Tablet] 1 each PO DAILY [History] Cholecalciferol (Vitamin D3) [Vitamin D3] 2,000 unit PO DAILY 11/03/16 [History] Donepezil [Aricept] 20 mg PO DAILY 11/03/16 [History] Gabapentin [Neurontin] 800 mg PO QID 11/03/16 [History] Guaifenesin [Mucinex] 600 mg PO Q12H 11/03/16 [History] Metformin HCl [Metformin HCl ER] 1,500 mg PO QAM 11/03/16 [History] Multivitamin [Multi-Day Vitamins] 1 each PO DAILY 11/03/16 [History] OLANZapine [Zyprexa] 30 mg PO HS 11/03/16 [History] Omeprazole [PriLOSEC] 80 mg PO DAILY 11/03/16 [History] Pravastatin Sodium [Pravachol] 80 mg PO HS 11/03/16 [History] Trazodone HCl 300 mg PO HS 11/03/16 [History] HYDROcodone/Acet 5/325 mg [[place] 5-325 mg] 1 tab PO Q6HR PRN #20 tablet [Rx] Sulfamethoxazole/Trimeth DS [Bactrim DS] 1 each PO BID #15 tablet 11/08/16 [Rx] Allergies/Adverse Reactions: Allergies No Known Allergies Allergy (Verified 11/03/16 15:28) Date of admission: 11/06/16 15:38 Primary care physician: PCP NO Consults: consult to surgery: Dr. Chatterjee Discharging clinician: Violeta Mendoza Anticipated date of discharge: 11/08/16 - Patient Status Disposition: Home Health Service Condition: Good Functional capacity at discharge: independent ambulation Overall status at discharge: patient is back to baseline - Discharge Instructions Follow Up With: Josefina Kyle [Other] - 11/11/16 11:00 am Additional Instructions: Please follow up with your primary care physician and surgery within one week after your discharge from the hospital. Please continue oral antibiotics (Bactrim DS 1 tablet twice a day for 7 more days). Please continue daily dressing changes. Home health has been set up to do the daily dressing changes. Wound care- cleanse right buttock with soap and water, pat dry, pack with 1/4 inch plain gauze, cover with dry dressing and tape to secure daily for 1 week. Resume all home medications as prescribed by your primary care physician. - Diet and Activity Activity: resume usual activities as tolerated Diet: diabetic diet, low salt diet Hospital course: Ms. Lockhart is a 56 year old female with PMH Of DM, COPD, early dementia who was admitted for right buttock cellulitis. She was started on empiric IV abx therapy and despite being on appropriate abx therapy, she was noted to have worsening leukocytosis along with fevers. She was noted to have worsening perirectal abscess. Surgery was consulted and she underwent I&D. Pt's symptoms improved after the I&D. Her wound cultures are positive for MRSA. She is hemodynamically stable and home health has been set up for daily wound care. She will be discharged to home with oral abx and follow up with PcP and surgery. Patient and demonstrate understanding of her diagnosis and agree with the discharge care and plan. - Time Spent with Patient Total time spent providing and/or coordinating discharge services: Greater than 30 minutes - Constitutional Vitals: Temp Pulse Resp BP Pulse Ox 97.6 F 75 16 114/74 91 11/08/16 11:26 11/08/16 11:26 11/08/16 11:26 11/08/16 11:26 11/08/16 11:26 General appearance: Present: A&O X 3, pleasant, no acute distress, obese, answers questions appropriately - Head Head exam: Present: atraumatic, normocephalic - Eye Eye exam: Present: normal appearance, conjuntiva pink, sclera anicteric - Respiratory Respiratory exam: Present: CTAB. Absent: accessory muscle use, rales, rhonchi, wheezes - Cardiovascular Cardiovascular exam: Present: RRR, +S1, +S2. Absent: diastolic murmur, gallop, rubs, systolic murmur - GI/Abdominal GI/Abdominal exam: Present: normal bowel sounds, soft, no peritoneal signs. Absent: distended, tenderness - Extremities Exam Extremities exam: Present: warm, radial pulses palpable and symetrical. Absent : calf tenderness, cyanotic, pedal edema - Neurological Exam Neurological exam: Present: alert, oriented X3 - Skin Additional comments: right prerectal wound site clean, packing in place, erythema improved
--- NOTE | 2016-11-08 12:34 | Physician Discharge Referral ---
Home Health/Hosp Referral Info Transfer to: Home Health Provider in Charge Post Discharge: PCP - Diagnosis (1) Cellulitis of buttock, right Priority: Primary Status: Acute (2) Diabetes mellitus Priority: Secondary Status: Chronic (3) COPD (chronic obstructive pulmonary disease) Priority: Secondary Status: Chronic (4) DVT prophylaxis Priority: Secondary Status: Acute - Respiratory Orders Smoking Cessation: Smoking cessation has been advised. For more information, call the [place] Tobacco Quit Line at 1-277-QQBD-NOW. - Services Needed Following services are medically necessary services: Nursing (daily wound care) - Transfer Medications Prescriptions: HYDROcodone/Acet 5/325 mg [[place] 5-325 mg] 1 tab PO Q6HR PRN #20 tablet PRN Reason: Severe Pain Sulfamethoxazole/Trimeth DS [Bactrim DS] 1 each PO BID #15 tablet Home Medications: Alprazolam [Xanax] 2 mg PO TID 11/03/16 [History] Budesonide/Formoterol 80/4.5 [Symbicort 80/4.5] 2 puff IH BID 11/03/16 [History ] Calcium Carbonate/Vitamin D3 [Calcium 500-Vit D3 200 Tablet] 1 each PO DAILY [History] Cholecalciferol (Vitamin D3) [Vitamin D3] 2,000 unit PO DAILY 11/03/16 [History] Donepezil [Aricept] 20 mg PO DAILY 11/03/16 [History] Gabapentin [Neurontin] 800 mg PO QID 11/03/16 [History] Guaifenesin [Mucinex] 600 mg PO Q12H 11/03/16 [History] Metformin HCl [Metformin HCl ER] 1,500 mg PO QAM 11/03/16 [History] Multivitamin [Multi-Day Vitamins] 1 each PO DAILY 11/03/16 [History] OLANZapine [Zyprexa] 30 mg PO HS 11/03/16 [History] Omeprazole [PriLOSEC] 80 mg PO DAILY 11/03/16 [History] Pravastatin Sodium [Pravachol] 80 mg PO HS 11/03/16 [History] Trazodone HCl 300 mg PO HS 11/03/16 [History] HYDROcodone/Acet 5/325 mg [[place] 5-325 mg] 1 tab PO Q6HR PRN #20 tablet [Rx] Sulfamethoxazole/Trimeth DS [Bactrim DS] 1 each PO BID #15 tablet 11/08/16 [Rx] Allergies/Adverse Reactions: Allergies No Known Allergies Allergy (Verified 11/03/16 15:28) Certification: Further, I certify that my clinical findings support that this patient is homebound (i.e. absences from home require considerable and taxing effort and are for medical reasons or christian services or infrequently or short duration when for other reasons) because: Homebound Reason: Patient requires assistance of a person or device to safely leave home Attestation: My signature below is to certify that this patient is under my care and that I, or nurse practitioner, or a physician's assistant track and field coach working with me, has a face-to -face encounter with this patient.
[2016-11-08] MEDS: ALPRAZolam 1 MG TABLET PO PRN (13:40)
[2016-11-08] MEDS: *HR* HYDROmorphone (PF) 1 MG/ML SYRINGE IVP PRN (15:35)
[2016-11-08] MEDS ORDERED: Aminoglycoside Consult 1 EACH MC ONE (16:21)
[2016-11-08] MEDS ORDERED: Vancomycin 1,500 MG in D5% in Water 500 ML IVPB SCH (20:00)
== END 2016-11-08 16:22 | disposition home health service (06) | DRG 603 ==
LOC: 3BNU 14:56 → EMEROO 14:56 → SUATTDRO 19:42 → 3BNU 20:07
PROVIDERS: ADMIT Nurse Practitioner Family; ATTEND Internal Medicine

== ENCOUNTER 2017-08-24 11:46 | Observation (INO) ==
[2017-08-24] MEDS ORDERED: Ondansetron 4 MG/2 ML VIAL IVP ONE (12:20)
[2017-08-24] MEDS ORDERED: 0.9 % Sodium Chloride 1,000 ML IVC ONE (12:21)
[2017-08-24] MEDS ORDERED: Ipratropium/Albuterol Neb 3 ML IH ONE (12:21)
[2017-08-24] MEDS ORDERED: Hyoscyamine 0.5 MG/ML MLS IVP ONE (12:21)
--- NOTE | 2017-08-24 12:25 | Emergency Department Note ---
Disposition Clinical Impression: Hyperglycemia, Bronchitis Disposition: Admitted As Inpatient Condition: Fair Referrals: Marquise Alberto MD [Primary Care Provider] - Forms: ED Satisfaction Letter Time of Disposition: 13:18 General Adult HPI - General Chief complaint: ED Nausea/Vomiting/Diarrhea Stated complaint: "n/v/d,hyperglycemia" Time Seen by Provider: 08/24/17 12:12 Source: patient, family Mode of arrival: ambulatory Limitations: no limitations Nursing Notes Reviewed: Yes Vital Signs Reviewed: Yes - History of Present Illness HPI Narrative: 56 year old F history of diabetes, COPD oxygen dependent on 2 L presents for evaluation of nausea vomiting diarrhea and hyperglycemia. Sent in by her primary care doctor. Her blood sugars been in the 500 to 600s and that she has been taking her metformin as directed. Patient states that she has been in having shortness of breath and chest pain intermittently over the past few days. Notes a productive cough. Notes fever 103F since thursday. Notes chronic diarrhea for the past several months. Patient denies any abdominal pain. Pain Scale: 8 - Related Data Home Medications Medication Instructions Recorded Confirmed Alprazolam [Xanax] 2 mg PO TID 11/03/16 11/03/16 Budesonide/Formoterol 80/4.5 2 puff IH BID 11/03/16 11/03/16 [Symbicort 80/4.5] Calcium Carbonate/Vitamin D3 1 each PO DAILY 11/03/16 11/03/16 [Calcium 500-Vit D3 200 Tablet] Cholecalciferol (Vitamin D3) 2,000 unit PO DAILY 11/03/16 11/03/16 [Vitamin D3] Donepezil [Aricept] 20 mg PO DAILY 11/03/16 11/03/16 Gabapentin [Neurontin] 800 mg PO QID 11/03/16 11/03/16 Guaifenesin [Mucinex] 600 mg PO Q12H 11/03/16 11/03/16 Metformin HCl [Metformin HCl ER] 1,500 mg PO QAM 11/03/16 11/03/16 Multivitamin [Multi-Day Vitamins] 1 each PO DAILY 11/03/16 11/03/16 OLANZapine [Zyprexa] 30 mg PO HS 11/03/16 11/03/16 Omeprazole [PriLOSEC] 80 mg PO DAILY 11/03/16 11/03/16 Pravastatin Sodium [Pravachol] 80 mg PO HS 11/03/16 11/03/16 Trazodone HCl 300 mg PO HS 11/03/16 11/03/16 Previous Rx's Medication Instructions Recorded HYDROcodone/Acet 5/325 mg [[place] 1 tab PO Q6HR PRN #20 tablet 11/08/16 5-325 mg] Sulfamethoxazole/Trimeth DS 1 each PO BID #15 tablet 11/08/16 [Bactrim DS] Sulfamethoxazole/Trimeth DS 1 each PO BID #20 tablet 12/24/16 [Bactrim DS] Allergies Allergy/AdvReac Type Severity Reaction Status Date / Time No Known Allergies Allergy Verified 12/24/16 21:40 All systems ED: reviewed and negative except as stated. Constitutional: Reports: fever Cardiovascular: Reports: chest pain Respiratory: Reports: cough, dyspnea, sputum production Gastrointestinal: Reports: nausea, vomiting, diarrhea. Denies: abdominal pain Past Medical History - Past Medical History Source: patient, obtained from family Medical history: Reports: COPD, dementia, diabetes, other Surgical history: Reports: hysterectomy, other (T&A, D&C, Hip implant for bladder control, excision of cysts from lower extremities) Psychiatric history: Reports: bipolar - Social History Smoking Status: Never smoker Alcohol use: Reports: none Drug use: Reports: none Physical Exam - General Limitations: no limitations General appearance: alert, in no apparent distress - Head Head exam: atraumatic, normocephalic, normal inspection - Eye Eye exam: Present: normal appearance, PERRL, EOMI - ENT ENT exam: normal exam, mucous membranes dry - Neck Neck exam: Present: normal inspection - Chest Chest inspection: Present: normal inspection, symmetric chest wall rise - Respiratory Respiratory exam: Present: accessory muscle use, prolonged expiratory phase, other (Scattered rhonchi with faint expiratory wheeze). Absent: respiratory distress - Cardiovascular Cardiovascular exam: Present: regular rate, normal rhythm. Absent: systolic murmur - Abdominal Exam Abdominal exam: Present: soft - Extremities Exam Extremities exam: Present: normal inspection. Absent: pedal edema - Expanded Lower Extremity Exam Neurovascular/Tendon exam: Present: normal capillary refill - Neurological Exam Neurological exam: Present: alert - Skin Skin exam: Present: warm, dry, intact, normal color Course Course Narrative: Patient will get basic labs, metabolic workup with EKG, troponin chest x-ray. Concerns of possible infection triggering be hyperglycemic episodes. - Reevaluation(s) Reevaluation #1: Patient seen and examined. Patient's initial breathing treatment. Patient appears to be feeling better. Given the concerns of patient's hyperglycemia and not able tolerate by mouth with nausea and vomiting with possible bronchitis the patient be admitted. Plan of care was discussed with the patient and family. Time: 13:34 Vital Signs Temperature 98.1 F 08/24/17 11:48 Pulse Rate 114 08/24/17 11:48 Respiratory Rate 20 08/24/17 11:48 Blood Pressure 161/77 08/24/17 11:48 O2 Sat by Pulse Oximetry 96 08/24/17 11:48 Temperature 98.1 F 08/24/17 11:48 Pulse Rate 114 08/24/17 11:48 Respiratory Rate 20 08/24/17 13:03 Blood Pressure 161/77 08/24/17 11:48 O2 Sat by Pulse Oximetry 99 08/24/17 13:03 Oxygen Delivery Oxygen Delivery Room Air Medical Decision Making - [facility] Narrative Medical decision making narrative: Patient presents with multiple complaints including nausea vomiting diarrhea which appears to be chronic in nature. Patient also is noted to be a diabetic on metformin. Patient's noted be hyperglycemic ketotic without secondary DKA. Patient does not have a gap. Patient also has been having fevers as high as 103 intermittent chest pain and difficulty breathing over the past few days. Patient is COPD. Patient does have oxygen at home. Patient's workup reveals a negative chest x-ray and patient will be treated with bronchitis. Patient will be admitted for hyperglycemia as well as bronchitis. Concerns that the patient was sent home on outpatient management she would fail with worsening hyperglycemia. Patient did not get an abdomen and pelvis CT scan for her nausea vomiting diarrhea as she has not been complaining of any abdominal pain. Patient will be treated with prophylactic antibiotics given her history of COPD and productive cough with fevers. Patient was not given any steroids for COPD given her secondary hyperglycemia. - Lab Data Lab results reviewed: Yes I reviewed the patient's lab results. Result diagrams: 08/24/17 12:16 08/24/17 12:16 Lab Results 08/24/17 08/24/17 08/24/17 Range/Units 11:51 11:52 11:53 WBC (4.3-11.1) K/mcL RBC (3.82-4.97) M/mcL Hgb (11.5-15.4) g/dL Hct (35.3-44.9) % MCV (83.0-100.0) fL MCH (28.0-33.3) pg MCHC (31.6-35.5) g/dL RDW (11.5-14.5) % Plt Count (140-400) K/mcL MPV (9.4-12.4) fL Immature Gran % (0-4) % Seg Neutrophils % % Lymphocytes % % Monocytes % % Eosinophils % % Basophils % % Neutrophils # (1.6-8.9) K/mcL Lymphocytes # (0.6-4.6) K/mcL Monocytes # (0.0-1.3) K/mcL Eosinophils # (0.0-0.6) K/mcL Basophils # (0.0-0.2) K/mcL VBG pH (7.32-7.42) pH Units VBG pCO2 (41-51) mmHg VBG pO2 (25-50) mmHg VBG HCO3 (21-27) mEq/L Sodium (136-145) mEq/L Potassium (3.5-5.1) mEq/L Chloride (98-107) mEq/L Carbon Dioxide (23-29) mEq/L BUN (6-20) mg/dL Creatinine (0.60-1.20) mg/dL Est GFR ( Amer) (> 60) Est GFR (Non-Af Amer) (> 60) BUN/Creatinine Ratio (6-26) Glucose (70-105) mg/dL POC Glucose 389 H 433 H* 434 H* (70-99) mg/dL Calculated Osmolality (280-300) Lactic Acid (0.5-2.2) mmol/L Calcium (8.6-10.3) mg/dL Troponin I (< 0.04) ng/mL Lipase (11-82) Units/L Beta-Hydroxybutyric Acd (0.02-0.27) mmol/L Urine Color (Yellow) Urine Clarity (Clear) Urine pH (5.0-8.0) pH Units Ur Specific [place] (1.010-1.025) Urine Protein (Neg-Trace) mg/dL Urine Glucose (UA) (Normal) mg/dL Urine Ketones (Negative) mg/dL Urine Blood (Negative) Urine Nitrite (Negative) Urine Bilirubin (Negative) Urine Urobilinogen (Normal) mg/dL Ur Leukocyte Esterase (Negative) Ur Culture Indicated? (NO) 08/24/17 08/24/17 08/24/17 Range/Units 12:16 12:16 12:16 WBC 6.8 (4.3-11.1) K/mcL RBC 4.95 (3.82-4.97) M/mcL Hgb 13.6 (11.5-15.4) g/dL Hct 42.5 (35.3-44.9) % MCV 85.9 (83.0-100.0) fL MCH 27.5 L (28.0-33.3) pg MCHC 32.0 (31.6-35.5) g/dL RDW 13.0 (11.5-14.5) % Plt Count 308 (140-400) K/mcL MPV 9.1 L (9.4-12.4) fL Immature Gran % 1.2 (0-4) % Seg Neutrophils % 87.9 % Lymphocytes % 7.7 % Monocytes % 2.8 % Eosinophils % 0.3 % Basophils % 0.1 % Neutrophils # 6.0 (1.6-8.9) K/mcL Lymphocytes # 0.5 L (0.6-4.6) K/mcL Monocytes # 0.2 (0.0-1.3) K/mcL Eosinophils # 0.0 (0.0-0.6) K/mcL Basophils # 0.0 (0.0-0.2) K/mcL VBG pH (7.32-7.42) pH Units VBG pCO2 (41-51) mmHg VBG pO2 (25-50) mmHg VBG HCO3 (21-27) mEq/L Sodium 131 L (136-145) mEq/L Potassium 3.9 (3.5-5.1) mEq/L Chloride 97 L (98-107) mEq/L Carbon Dioxide 22 L (23-29) mEq/L BUN 14 (6-20) mg/dL Creatinine 0.66 (0.60-1.20) mg/dL Est GFR ( Amer) > 60 (> 60) Est GFR (Non-Af Amer) > 60 (> 60) BUN/Creatinine Ratio 21 (6-26) Glucose 441 H (70-105) mg/dL POC Glucose (70-99) mg/dL Calculated Osmolality 292 (280-300) Lactic Acid 1.8 (0.5-2.2) mmol/L Calcium 9.6 (8.6-10.3) mg/dL Troponin I < 0.03 (< 0.04) ng/mL Lipase 38 (11-82) Units/L Beta-Hydroxybutyric Acd (0.02-0.27) mmol/L Urine Color (Yellow) Urine Clarity (Clear) Urine pH (5.0-8.0) pH Units Ur Specific [place] (1.010-1.025) Urine Protein (Neg-Trace) mg/dL Urine Glucose (UA) (Normal) mg/dL Urine Ketones (Negative) mg/dL Urine Blood (Negative) Urine Nitrite (Negative) Urine Bilirubin (Negative) Urine Urobilinogen (Normal) mg/dL Ur Leukocyte Esterase (Negative) Ur Culture Indicated? (NO) 08/24/17 08/24/17 08/24/17 Range/Units 12:16 12:19 12:30 WBC (4.3-11.1) K/mcL RBC (3.82-4.97) M/mcL Hgb (11.5-15.4) g/dL Hct (35.3-44.9) % MCV (83.0-100.0) fL MCH (28.0-33.3) pg MCHC (31.6-35.5) g/dL RDW (11.5-14.5) % Plt Count (140-400) K/mcL MPV (9.4-12.4) fL Immature Gran % (0-4) % Seg Neutrophils % % Lymphocytes % % Monocytes % % Eosinophils % % Basophils % % Neutrophils # (1.6-8.9) K/mcL Lymphocytes # (0.6-4.6) K/mcL Monocytes # (0.0-1.3) K/mcL Eosinophils # (0.0-0.6) K/mcL Basophils # (0.0-0.2) K/mcL VBG pH 7.40 (7.32-7.42) pH Units VBG pCO2 35 L (41-51) mmHg VBG pO2 60 H (25-50) mmHg VBG HCO3 22 (21-27) mEq/L Sodium (136-145) mEq/L Potassium (3.5-5.1) mEq/L Chloride (98-107) mEq/L Carbon Dioxide (23-29) mEq/L BUN (6-20) mg/dL Creatinine (0.60-1.20) mg/dL Est GFR ( Amer) (> 60) Est GFR (Non-Af Amer) (> 60) BUN/Creatinine Ratio (6-26) Glucose (70-105) mg/dL POC Glucose (70-99) mg/dL Calculated Osmolality (280-300) Lactic Acid (0.5-2.2) mmol/L Calcium (8.6-10.3) mg/dL Troponin I (< 0.04) ng/mL Lipase (11-82) Units/L Beta-Hydroxybutyric Acd 1.19 H (0.02-0.27) mmol/L Urine Color Yellow (Yellow) Urine Clarity Clear (Clear) Urine pH 6.0 (5.0-8.0) pH Units Ur Specific [place] > 1.030 H (1.010-1.025) Urine Protein Negative (Neg-Trace) mg/dL Urine Glucose (UA) >=1000 H (Normal) mg/dL Urine Ketones 40 H (Negative) mg/dL Urine Blood Negative (Negative) Urine Nitrite Negative (Negative) Urine Bilirubin Negative (Negative) Urine Urobilinogen Normal (Normal) mg/dL Ur Leukocyte Esterase Negative (Negative) Ur Culture Indicated? NO (NO) - Radiology Data Radiology results reviewed: Yes I reviewed the patient's radiology results. Chest X-Ray 08/24/17 12:38 IMPRESSION: No acute process. D/ / Alexandr Flores MD / Alexandr Flores MD Interpreting Provider: Alexandr Flores MD - EKG Data EKG #1 EKG attestation: Yes I reviewed and interpreted this EKG. EKG shows normal: sinus rhythm Rate: tachycardia Rhythm: NSR [place]/QRS: normal T wave inversions noted in: v1 Interpretation: no acute changes, nonspecific ST-T wave changes S.B.A.R. - S.B.A.R. Situation: Demographics Background: Presenting Complaint Assessment: Vital Signs Recommendation: Barrier(s) to disposition, Recommendation based on pending studies, treatments, or consults Stephanie Report Given to: Dr. Kristopher Brown Repor Time: 13:15
[2017-08-24 12:30] LABS: Bilirubin,Urine Negative (Negative); Blood,Urine Negative (Negative); Clarity,Urine Clear (Clear); Color,Urine Yellow (Yellow); Glucose,Urine (UA) >=1000 mg/dL (Normal); Ketones,Urine 40 mg/dL (Negative); Leukocyte Esterase,Urine Negative (Negative); Nitrite,Urine Negative (Negative); Protein,Urine Negative (Neg-Trace); Specific Gravity,Urine > 1.030 (1.010-1.025); Urobilinogen,Urine Normal (Normal)
[2017-08-24 12:32] LABS: Basophils % 0.1 %; Eosinophils % 0.3 %; Hematocrit 42.5 % (35.3-44.9); Hemoglobin 13.6 g/dL (11.5-15.4); Immature Granulocytes % 1.2 % (0-4); Lymphocytes # 0.5 K/mcL (0.6-4.6); Lymphocytes % 7.7 %; Mean Corpuscular Hemoglobin 27.5 pg (28.0-33.3); Mean Corpuscular Volume 85.9 fL (83.0-100.0); Mean Platelet Volume 9.1 fL (9.4-12.4); Monocytes # 0.2 K/mcL (0.0-1.3); Monocytes % 2.8 %; Platelet Count 308 K/mcL (140-400); Red Blood Count 4.95 M/mcL (3.82-4.97); Segmented Neutrophils % 87.9 %
[2017-08-24 12:32] LABS: VBG HCO3 22 mEq/L (21-27); VBG PCO2 35 mmHg (41-51); VBG PO2 60 mmHg (25-50)
--- NOTE | 2017-08-24 13:00 | Emergency Department Note ---
Disposition Clinical Impression: Hyperglycemia Disposition: Admitted As Inpatient Referrals: Marquise Alberto MD [Primary Care Provider] - Forms: ED Satisfaction Letter General Adult HPI - General Chief complaint: ED Nausea/Vomiting/Diarrhea Stated complaint: "n/v/d,hyperglycemia" Time Seen by Provider: 08/24/17 12:12 Source: patient, family Mode of arrival: ambulatory Limitations: no limitations - History of Present Illness Pain Scale: 8 - Related Data Home Medications Medication Instructions Recorded Confirmed Alprazolam [Xanax] 2 mg PO TID 11/03/16 11/03/16 Budesonide/Formoterol 80/4.5 2 puff IH BID 11/03/16 11/03/16 [Symbicort 80/4.5] Calcium Carbonate/Vitamin D3 1 each PO DAILY 11/03/16 11/03/16 [Calcium 500-Vit D3 200 Tablet] Cholecalciferol (Vitamin D3) 2,000 unit PO DAILY 11/03/16 11/03/16 [Vitamin D3] Donepezil [Aricept] 20 mg PO DAILY 11/03/16 11/03/16 Gabapentin [Neurontin] 800 mg PO QID 11/03/16 11/03/16 Guaifenesin [Mucinex] 600 mg PO Q12H 11/03/16 11/03/16 Metformin HCl [Metformin HCl ER] 1,500 mg PO QAM 11/03/16 11/03/16 Multivitamin [Multi-Day Vitamins] 1 each PO DAILY 11/03/16 11/03/16 OLANZapine [Zyprexa] 30 mg PO HS 11/03/16 11/03/16 Omeprazole [PriLOSEC] 80 mg PO DAILY 11/03/16 11/03/16 Pravastatin Sodium [Pravachol] 80 mg PO HS 11/03/16 11/03/16 Trazodone HCl 300 mg PO HS 11/03/16 11/03/16 Previous Rx's Medication Instructions Recorded HYDROcodone/Acet 5/325 mg [[place] 1 tab PO Q6HR PRN #20 tablet 11/08/16 5-325 mg] Sulfamethoxazole/Trimeth DS 1 each PO BID #15 tablet 11/08/16 [Bactrim DS] Sulfamethoxazole/Trimeth DS 1 each PO BID #20 tablet 12/24/16 [Bactrim DS] Allergies Allergy/AdvReac Type Severity Reaction Status Date / Time No Known Allergies Allergy Verified 12/24/16 21:40 Constitutional: Reports: fever Cardiovascular: Reports: chest pain Respiratory: Reports: cough, dyspnea, sputum production Gastrointestinal: Reports: nausea, vomiting, diarrhea. Denies: abdominal pain Past Medical History - Past Medical History Medical history: Reports: COPD, dementia, diabetes, other Surgical history: Reports: hysterectomy, other (T&A, D&C, Hip implant for bladder control, excision of cysts from lower extremities) Psychiatric history: Reports: bipolar - Social History Smoking Status: Never smoker Alcohol use: Reports: none Drug use: Reports: none Physical Exam - General Limitations: no limitations General appearance: alert, in no apparent distress Course Vital Signs Temperature 98.1 F 08/24/17 11:48 Pulse Rate 114 08/24/17 11:48 Respiratory Rate 20 08/24/17 11:48 Blood Pressure 161/77 08/24/17 11:48 O2 Sat by Pulse Oximetry 96 08/24/17 11:48 Temperature 98.1 F 08/24/17 11:48 Pulse Rate 114 08/24/17 11:48 Respiratory Rate 20 08/24/17 11:48 Blood Pressure 161/77 08/24/17 11:48 O2 Sat by Pulse Oximetry 96 08/24/17 11:48 Oxygen Delivery Oxygen Delivery Room Air Medical Decision Making - Lab Data Result diagrams: 08/24/17 12:16 Lab Results 08/24/17 08/24/17 08/24/17 Range/Units 11:51 11:52 11:53 WBC (4.3-11.1) K/mcL RBC (3.82-4.97) M/mcL Hgb (11.5-15.4) g/dL Hct (35.3-44.9) % MCV (83.0-100.0) fL MCH (28.0-33.3) pg MCHC (31.6-35.5) g/dL RDW (11.5-14.5) % Plt Count (140-400) K/mcL MPV (9.4-12.4) fL Immature Gran % (0-4) % Seg Neutrophils % % Lymphocytes % % Monocytes % % Eosinophils % % Basophils % % Neutrophils # (1.6-8.9) K/mcL Lymphocytes # (0.6-4.6) K/mcL Monocytes # (0.0-1.3) K/mcL Eosinophils # (0.0-0.6) K/mcL Basophils # (0.0-0.2) K/mcL VBG pH (7.32-7.42) pH Units VBG pCO2 (41-51) mmHg VBG pO2 (25-50) mmHg VBG HCO3 (21-27) mEq/L POC Glucose 389 H 433 H* 434 H* (70-99) mg/dL Lactic Acid (0.5-2.2) mmol/L Urine Color (Yellow) Urine Clarity (Clear) Urine pH (5.0-8.0) pH Units Ur Specific [place] (1.010-1.025) Urine Protein (Neg-Trace) mg/dL Urine Glucose (UA) (Normal) mg/dL Urine Ketones (Negative) mg/dL Urine Blood (Negative) Urine Nitrite (Negative) Urine Bilirubin (Negative) Urine Urobilinogen (Normal) mg/dL Ur Leukocyte Esterase (Negative) Ur Culture Indicated? (NO) 08/24/17 08/24/17 08/24/17 Range/Units 12:16 12:16 12:19 WBC 6.8 (4.3-11.1) K/mcL RBC 4.95 (3.82-4.97) M/mcL Hgb 13.6 (11.5-15.4) g/dL Hct 42.5 (35.3-44.9) % MCV 85.9 (83.0-100.0) fL MCH 27.5 L (28.0-33.3) pg MCHC 32.0 (31.6-35.5) g/dL RDW 13.0 (11.5-14.5) % Plt Count 308 (140-400) K/mcL MPV 9.1 L (9.4-12.4) fL Immature Gran % 1.2 (0-4) % Seg Neutrophils % 87.9 % Lymphocytes % 7.7 % Monocytes % 2.8 % Eosinophils % 0.3 % Basophils % 0.1 % Neutrophils # 6.0 (1.6-8.9) K/mcL Lymphocytes # 0.5 L (0.6-4.6) K/mcL Monocytes # 0.2 (0.0-1.3) K/mcL Eosinophils # 0.0 (0.0-0.6) K/mcL Basophils # 0.0 (0.0-0.2) K/mcL VBG pH (7.32-7.42) pH Units VBG pCO2 (41-51) mmHg VBG pO2 (25-50) mmHg VBG HCO3 (21-27) mEq/L POC Glucose (70-99) mg/dL Lactic Acid 1.8 (0.5-2.2) mmol/L Urine Color Yellow (Yellow) Urine Clarity Clear (Clear) Urine pH 6.0 (5.0-8.0) pH Units Ur Specific [place] > 1.030 H (1.010-1.025) Urine Protein Negative (Neg-Trace) mg/dL Urine Glucose (UA) >=1000 H (Normal) mg/dL Urine Ketones 40 H (Negative) mg/dL Urine Blood Negative (Negative) Urine Nitrite Negative (Negative) Urine Bilirubin Negative (Negative) Urine Urobilinogen Normal (Normal) mg/dL Ur Leukocyte Esterase Negative (Negative) Ur Culture Indicated? NO (NO) 08/24/17 Range/Units 12:30 WBC (4.3-11.1) K/mcL RBC (3.82-4.97) M/mcL Hgb (11.5-15.4) g/dL Hct (35.3-44.9) % MCV (83.0-100.0) fL MCH (28.0-33.3) pg MCHC (31.6-35.5) g/dL RDW (11.5-14.5) % Plt Count (140-400) K/mcL MPV (9.4-12.4) fL Immature Gran % (0-4) % Seg Neutrophils % % Lymphocytes % % Monocytes % % Eosinophils % % Basophils % % Neutrophils # (1.6-8.9) K/mcL Lymphocytes # (0.6-4.6) K/mcL Monocytes # (0.0-1.3) K/mcL Eosinophils # (0.0-0.6) K/mcL Basophils # (0.0-0.2) K/mcL VBG pH 7.40 (7.32-7.42) pH Units VBG pCO2 35 L (41-51) mmHg VBG pO2 60 H (25-50) mmHg VBG HCO3 22 (21-27) mEq/L POC Glucose (70-99) mg/dL Lactic Acid (0.5-2.2) mmol/L Urine Color (Yellow) Urine Clarity (Clear) Urine pH (5.0-8.0) pH Units Ur Specific [place] (1.010-1.025) Urine Protein (Neg-Trace) mg/dL Urine Glucose (UA) (Normal) mg/dL Urine Ketones (Negative) mg/dL Urine Blood (Negative) Urine Nitrite (Negative) Urine Bilirubin (Negative) Urine Urobilinogen (Normal) mg/dL Ur Leukocyte Esterase (Negative) Ur Culture Indicated? (NO) Attestation Statement - Attestation Attestation: I examined this patient and my medical decision-making was reviewed with the Resident Physician. I agree with the documented findings, disposition and treatment plan as described except to the extent set forth below. 56 year old female presents to the eD with complaints of NVD and COPD with cough and increased in her glucose levels. Ramonita is not in acute distress. We larissa do an infectious workup on ramonita and start IVF for hyperglycemia and admit to medicine.
[2017-08-24 13:02] LABS: BUN/Creatinine Ratio 21 (6-26); Blood Urea Nitrogen 14 mg/dL (6-20); Calcium 9.6 mg/dL (8.6-10.3); Carbon Dioxide 22 mEq/L (23-29); Chloride 97 mEq/L (98-107); Glucose 441 mg/dL (70-105); Lipase 38 Units/L (11-82); Osmolality,Calculated 292 (280-300); Potassium 3.9 mEq/L (3.5-5.1); Sodium 131 mEq/L (136-145); eGFR For African Americans > 60 (> 60); eGFR For Non-African Americans > 60 (> 60)
[2017-08-24] MEDS ORDERED: Insulin Regular, Human 100 UNIT/ML IV ONE (13:09)
[2017-08-24] MEDS ORDERED: Levofloxacin 750 MG/150 ML 750 MG/150 ML BAG IVPB ONE (13:15)
[2017-08-24 13:19] LABS: Troponin I < 0.03 ng/mL (< 0.04)
[2017-08-24] MEDS ORDERED: Ondansetron 4 MG/2 ML VIAL IVP PRN (13:22)
[2017-08-24] MEDS ORDERED: Naloxone 0.4 MG/ML INJ IVP PRN (13:25)
[2017-08-24] MEDS ORDERED: Dextrose Gel 15 GM/37.5 ML TUBE PO PRN ×2 (13:29)
[2017-08-24] MEDS ORDERED: D5% in Water 1,000 ML IVC PRN ×2 (13:29→18:14)
[2017-08-24] MEDS ORDERED: *HR* Dextrose 50 % in Water (Syg) 50 ML SYRINGE IVP PRN (13:29)
[2017-08-24] MEDS ORDERED: Levofloxacin 750 MG/150 ML 750 MG/150 ML BAG IVPB SCH (14:00)
--- NOTE | 2017-08-24 14:08 | Internal Med History&Physical ---
<Leonides Martinez - Last Filed: 08/24/17 14:02> Date of Encounter: 08/24/17 Time of Encounter: 14:03 Internal Medicine - H&P: HPI Chief complaint: cough, N/V/D, hyperglycemia, dehydration Admitted From: Home Plans for Post Hospital Care: Home History of present illness: Ms. Lockhart is a 56 year old female with a PMH of COPD, DM, and dementia. Presents to [facility] today with a one-week history of shortness of breath, cough, nausea, vomiting and diarrhea as well as fevers. She reports that she has been seen by her primary care doctor for shortness of breath and was diagnosed with bronchitis. She reports that she was sent home with oral steroids and antibiotics. She denies any improvement and reports that she has been continuing to feel weak and fatigued. She notes that she has had fevers since Thursday with the highest fever being 103, however, she is currently afebrile. She notes chronic diarrhea for the past several months. But she reports that the diarrhea has worsened over the last week. She denies any URI symptoms, ill contacts, chest pain, abdominal pain, flank pain, dysuria, unilateral extremity swelling or tenderness. His chest x-ray shows no acute process, no leukocytosis noted, and urinalysis unremarkable. She was noted to have hyperglycemia with a serum glucose of 434 and a small amount of ketones in the urine however no acidosis present. Past Med Surg Social Fam HX - Past Medical History Medical history: COPD, dementia, diabetes, other Psychiatric history: bipolar - Past Surgical History Surgical History: hysterectomy, other (T&A, D&C, Hip implant for bladder control , excision of cysts from lower extremities) - Social History Smoking Status: Never smoker Alcohol use: none Drug use: none - Family History Mother History Unknown: Yes Internal Medicine - H&P: Meds Alprazolam [Xanax] 2 mg PO TID 11/03/16 [History] Calcium Carbonate/Vitamin D3 [Calcium 500-Vit D3 200 Tablet] 1 each PO DAILY [History] Cholecalciferol (Vitamin D3) [Vitamin D3] 2,000 unit PO DAILY 11/03/16 [History] Donepezil [Aricept] 20 mg PO DAILY 11/03/16 [History] Gabapentin [Neurontin] 800 mg PO QID 11/03/16 [History] Metformin HCl [Metformin HCl ER] 1,500 mg PO QAM 11/03/16 [History] Multivitamin [Multi-Day Vitamins] 1 each PO DAILY 11/03/16 [History] OLANZapine [Zyprexa] 30 mg PO HS 11/03/16 [History] Pravastatin Sodium [Pravachol] 80 mg PO HS 11/03/16 [History] Trazodone HCl 300 mg PO HS 11/03/16 [History] Albuterol Sulfate [Ventolin Hfa] 2 puff IH Q6H PRN 08/24/17 [History] Esomeprazole Magnesium [Nexium] 40 mg PO DAILY 08/24/17 [History] Fluticasone Propionate Nasal [Flonase] 1 spr NS DAILY 08/24/17 [History] Fluticasone/Salmeterol [Advair 250-50 Diskus] 1 puff IH BID 08/24/17 [History] Ranitidine HCl [Zantac] 300 mg PO DAILY 08/24/17 [History] Tiotropium [Spiriva] 2 puff IH DAILY 08/24/17 [History] 3 Allergy/AdvReac Type Severity Reaction Status Date / Time No Known Allergies Allergy Verified 12/24/16 21:40 All Systems PM: A 10-system review of systems was performed and is negative for pertinent findings except as documented above in the HPI. Review of systems: REVIEW OF SYSTEMS GENERAL: Negative for any chills, or weight loss. Positive for fevers NEUROLOGIC: Negative for any blurry vision, blind spots, double vision, facial asymmetry, dysphagia, dysarthria, hemiparesis, hemisensory deficits, vertigo, ataxia. HEENT: Negative for any head trauma, neck trauma, neck stiffness, photophobia, phonophobia, sinusitis, rhinitis. CARDIAC: Negative for any chest pain, paroxysmal nocturnal dyspnea, peripheral edema. PULMONARY: Negative for any or TB exposure. History of COPD, positive for productive cough of thin white sputum, shortness of breath and wheezing. Reports shortness of breath is worse with activity GASTROINTESTINAL: Negative for any abdominal pain, bright red blood per rectum , melena. Positive for nausea vomiting and diarrhea GENITOURINARY: Negative for any dysuria, hematuria, incontinence. INTEGUMENTARY: Negative for any rashes, cuts, insect bites. RHEUMATOLOGIC: Negative for any joint pains, photosensitive rashes, history of vasculitis or kidney problems. HEMATOLOGIC: Negative for any abnormal bruising, frequent infections or bleeding. - Constitutional Vitals: Temp Pulse Resp BP Pulse Ox 98.1 F 114 20 161/77 99 08/24/17 11:48 08/24/17 11:48 08/24/17 13:03 08/24/17 11:48 08/24/17 13:03 General appearance: Present: cooperative, mild distress, A&O X 3, answers questions appropriately Exam: PHYSICAL EXAMINATION: GENERAL: The patient is an obese female in mild distress. She is alert and oriented x3. HEENT: Head is normocephalic and atraumatic. Extraocular muscles are intact. Pupils are equal, round, and reactive to light and accommodation. NECK: Supple. No carotid bruits. No lymphadenopathy or thyromegaly. LUNGS: Lungs are coarse throughout anterior posterior and lateral. Expiratory wheezing noted. Mild accessory muscle usage and increase shortness of breath with activity. No conversational dyspnea noted. I witnessed the patient ambulate to the restroom and back and she was not hypoxic upon return to bed. HEART: Regular rate and rhythm without murmur. ABDOMEN: Soft, nontender, and nondistended. Positive active bowel sounds. No hepatosplenomegaly was noted. EXTREMITIES: No swelling or tenderness noted to extremities, 2+ palpable bilateral radial pulses, 2+ palpable DP-PT pulses NEUROLOGIC: No facial droop or slurred speech noted PSYCHIATRIC: Appears mildly anxious SKIN: No ulceration rashes or lesions present Internal Med - H&P Results - Labs CBC & Chem 7: 08/24/17 12:16 08/24/17 12:16 Labs: Short CBC 08/24/17 Range/Units 12:16 WBC 6.8 (4.3-11.1) K/mcL Hgb 13.6 (11.5-15.4) g/dL Hct 42.5 (35.3-44.9) % Plt Count 308 (140-400) K/mcL Neutrophils # 6.0 (1.6-8.9) K/mcL BMP 08/24/17 12:16 Sodium 131 L Potassium 3.9 Chloride 97 L Carbon Dioxide 22 L BUN 14 Creatinine 0.66 Glucose 441 H Calcium 9.6 Cardiac Enzymes 08/24/17 Range/Units 12:16 Troponin I < 0.03 (< 0.04) ng/mL Urine 08/24/17 Range/Units 12:19 Urine Color Yellow (Yellow) Urine Clarity Clear (Clear) Urine pH 6.0 (5.0-8.0) pH Units Ur Specific [place] > 1.030 H (1.010-1.025) Urine Protein Negative (Neg-Trace) mg/dL Urine Glucose (UA) >=1000 H (Normal) mg/dL - ABG Interpretation ABG results: 08/24/17 12:30 VBG pH 7.40 VBG pCO2 35 L VBG pO2 60 H VBG HCO3 22 - EKG Data -: EKG Interpreted by Myself Rate: normal - EKG Data EKG comments: ECG shows sinus tachycardia without acute changes, nonspecific ST-T wave changes 08/24/17 14:12 - Impressions ITS Impressions Chest X-Ray 08/24/17 12:38 IMPRESSION: No acute process. D/ / Alexandr Flores MD / Alexandr Flores MD Interpreting Provider: Alexandr Flores MD - Assessment and plan (1) Bronchitis Current Visit: Yes Status: Acute Assessment and plan: ASSESSMENT: - SOB due to bronchitis. History of COPD. Reporting cough productive of thin white sputum ongoing for the last week. Was recently treated outpatient for a diagnosis of bronchitis. Today's chest x-ray negative for acute pulmonary process. Coarse lung sounds throughout with expiratory wheezing. She is short of breath with activity. - Blood Cx- follow and narrow ATB as clinically appropriate - Antibiotics -Levaquin 750 mg daily - CBCD, CMP in AM - Tylenol 650 mg PO q 6 hr PRN pain or fever - Restart Home meds - Heparin 5000 U SQ BID -REspiratory support per NC; titrate to maintain Spo2 >92% -Continuous tele, and Spo2 monitoring -DuoNeb's and IV steroids (2) Hyperglycemia Current Visit: Yes Status: Acute Assessment and plan: Patient presents today with hyperglycemia with ketosis. Serum blood glucose of 434. No acidosis present per VBG. She does not appear to be in DKA She has been taking oral steroids due to bronchitis. She is also known to have nausea, vomiting, diarrhea for the last week She reports she only takes oral hypoglycemic agents at home, no history of IV insulin use She was given 4 units of insulin IV push in the ED. Medium sliding scale coverage with before meals and at bedtime Accu-Cheks nothing by mouth (3) COPD (chronic obstructive pulmonary disease) Current Visit: Yes Status: Chronic Assessment and plan: See plan above Qualifiers: COPD type: unspecified COPD Qualified Code(s): J44.9 - Chronic obstructive pulmonary disease, unspecified (4) Diabetes mellitus Current Visit: Yes Status: Chronic Qualifiers: Diabetes mellitus type: type 2 Diabetes mellitus termite inspector insulin use: without termite inspector use Diabetes mellitus complication status: with unspecified complications Qualified Code(s): E11.8 - Type 2 diabetes mellitus with unspecified complications (5) Nausea vomiting and diarrhea Current Visit: Yes Status: Acute Assessment and plan: She reports nausea vomiting and began after taking oral steroids and antibiotics as an outpatient treatment for bronchitis She is additionally reporting a one-month history of diarrhea, however, reports that that it is worsened since beginning steroids and ABX History of C. difficile, no recent exotic travel, no ill contacts. She only recently began taking the ABX Due to month history of diarrhea check stool for C. difficile Antiemetics (6) Dehydration Current Visit: Yes Status: Acute Assessment and plan: Dehydration and mild hyponatremia with a sodium of 131 secondary nausea vomiting diarrhea Continue IV fluids BMP in the morning (7) DVT prophylaxis Current Visit: Yes Status: Acute Assessment and plan: Heparin 5000 units SC BID - Time Spent With Patient Total time spent is greater than 50% in coordination of care (as documented) at patient's floor/unit and/or counseling patient: 25 - 35 minutes <Yoana Borja - Last Filed: 08/24/17 18:32> Date of Encounter: 08/24/17 Internal Medicine - H&P: HPI History of present illness: Ms. Lockhart is a 56 year old female All Systems PM: A 10-system review of systems was performed and is negative for pertinent findings except as documented above in the HPI. - Constitutional Vitals: Temp Pulse Resp BP Pulse Ox 98.9 F 198 17 149/82 99 08/24/17 16:19 08/24/17 16:19 08/24/17 16:19 08/24/17 16:19 08/24/17 16:19 Internal Med - H&P Results - Labs CBC & Chem 7: 08/24/17 12:16 08/24/17 16:59 Labs: BMP 08/24/17 16:59 Sodium 132 L Potassium 3.7 Chloride 100 Carbon Dioxide 22 L BUN 11 Creatinine 0.54 L Glucose 312 H Calcium 8.9 - Attending Attestation I examined this patient and my medical decision-making was reviewed with the Resident Physician. I agree with the documented findings, disposition and treatment plan as described except to the extent set forth below. - Time Spent With Patient Total time spent is greater than 50% in coordination of care (as documented) at patient's floor/unit and/or counseling patient:
[2017-08-24] MEDS: Ipratropium/Albuterol Neb 3 ML IH SCH ×3 (16:18→23:44)
[2017-08-24 17:33] LABS: BUN/Creatinine Ratio 20 (6-26); Blood Urea Nitrogen 11 mg/dL (6-20); Calcium 8.9 mg/dL (8.6-10.3); Carbon Dioxide 22 mEq/L (23-29); Chloride 100 mEq/L (98-107); Glucose 312 mg/dL (70-105); Osmolality,Calculated 285 (280-300); Potassium 3.7 mEq/L (3.5-5.1); Sodium 132 mEq/L (136-145); eGFR For African Americans > 60 (> 60); eGFR For Non-African Americans > 60 (> 60)
[2017-08-24] MEDS ORDERED: Insulin LISPRO 300 UNITS/3 ML VIAL SQ SCH ×5 (18:00→21:00)
[2017-08-24] MEDS: 0.9 % Sodium Chloride 1,000 ML IVC SCH (18:20)
[2017-08-24] MEDS: Levofloxacin 750 MG/150 ML 750 MG/150 ML BAG IVPB SCH (18:21)
[2017-08-24] MEDS: *HR* Heparin 5,000 UNIT/ML VIAL SQ SCH (18:21)
[2017-08-24] MEDS: MethylPREDNISolone 40 MG/ML VIAL IVP SCH (18:22)
[2017-08-24] MEDS: Insulin LISPRO 300 UNITS/3 ML VIAL SQ SCH (18:35)
[2017-08-24] MEDS: traZODone 50 MG TABLET PO SCH (21:00)
[2017-08-24] MEDS: Gabapentin 400 MG CAPSULE PO SCH (21:00)
[2017-08-24] MEDS: OLANZapine 10 MG TAB.RAPDIS PO SCH (21:00)
[2017-08-24] MEDS: ALPRAZolam 1 MG TABLET PO SCH (21:00)
[2017-08-25] MEDS: MethylPREDNISolone 40 MG/ML VIAL IVP SCH ×3 (00:20→15:02)
[2017-08-25] MEDS: *HR* Heparin 5,000 UNIT/ML VIAL SQ SCH ×2 (00:23→17:12)
[2017-08-25] MEDS: Ipratropium/Albuterol Neb 3 ML IH SCH ×6 (03:26→23:40)
[2017-08-25] MEDS: *HR* HYDROcodone/Acet 5/325 mg TABLET PO PRN ×3 (05:53→21:18)
[2017-08-25] MEDS: 0.9 % Sodium Chloride 1,000 ML IVC SCH ×3 (05:54→17:13)
[2017-08-25] MEDS ORDERED: Acetaminophen IV 500 MG/50 ML INFUS..BTL IVPB SCH (06:00)
[2017-08-25 06:12] LABS: BUN/Creatinine Ratio 22 (6-26); Blood Urea Nitrogen 10 mg/dL (6-20); Calcium 8.9 mg/dL (8.6-10.3); Carbon Dioxide 23 mEq/L (23-29); Chloride 103 mEq/L (98-107); Glucose 350 mg/dL (70-105); Osmolality,Calculated 295 (280-300); Sodium 136 mEq/L (136-145); eGFR For African Americans > 60 (> 60); eGFR For Non-African Americans > 60 (> 60)
[2017-08-25 07:08] LABS: Hematocrit 37.1 % (35.3-44.9); Mean Corpuscular HGB Conc 31.5 g/dL (31.6-35.5); Mean Corpuscular Hemoglobin 26.8 pg (28.0-33.3); Mean Corpuscular Volume 84.9 fL (83.0-100.0); Mean Platelet Volume 9.3 fL (9.4-12.4); Platelet Count 284 K/mcL (140-400); Red Blood Count 4.37 M/mcL (3.82-4.97)
[2017-08-25 07:55] LABS: Hemoglobin 11.7 g/dL (11.5-15.4)
[2017-08-25] MEDS: Cholecalciferol (D-3) 1,000 UNIT TABLET PO SCH (08:41)
[2017-08-25] MEDS: Famotidine 20 MG TABLET PO SCH (08:41)
[2017-08-25] MEDS: Gabapentin 400 MG CAPSULE PO SCH ×4 (08:41→21:18)
[2017-08-25] MEDS: ALPRAZolam 1 MG TABLET PO SCH ×3 (08:41→21:18)
[2017-08-25] MEDS: Insulin LISPRO 300 UNITS/3 ML VIAL SQ SCH ×4 (08:42→21:18)
[2017-08-25] MEDS: Fluticasone Propionate Nasal 50 MCG/SPRAY BOTTLE NS SCH (12:42)
[2017-08-25] MEDS: Levofloxacin 750 MG/150 ML 750 MG/150 ML BAG IVPB SCH (15:05)
--- NOTE | 2017-08-25 15:24 | Internal Med Progress Note ---
Date of Encounter: 08/25/17 Time of Encounter: 10:20 - Assessment and plan (1) Diabetes mellitus Current Visit: Yes Status: Chronic Assessment and plan: Continue Accu-Cheks before meals and at bedtime, diabetic diet. Sliding scale increase to high-dose coverage due to hyperglycemia, most likely due to IV steroids. Dose has been decreased, will start a taper. Qualifiers: Diabetes mellitus type: type 2 Diabetes mellitus termite treater helper insulin use: without termite treater helper use Diabetes mellitus complication status: with unspecified complications Qualified Code(s): E11.8 - Type 2 diabetes mellitus with unspecified complications (2) COPD (chronic obstructive pulmonary disease) Current Visit: Yes Status: Chronic Assessment and plan: Patient with expiratory wheezing, audible wheezing. Continue DuoNeb nebs every 4 hours scheduled, continue guaifenesin 600 mg every 12 hours, continue Levaquin 750 mg IV daily. O2 as needed to maintain sats greater than 92%. Monitor labs, vitals, patient condition. Qualifiers: COPD type: unspecified COPD Qualified Code(s): J44.9 - Chronic obstructive pulmonary disease, unspecified (3) DVT prophylaxis Current Visit: Yes Status: Acute Assessment and plan: Heparin SC BID (4) Hyperglycemia Current Visit: Yes Status: Acute Assessment and plan: Patient presented with hyperglycemia with ketosis. Initial serum blood glucose was 434. No acidosis present per venous blood gas. Anion gap is 12.0. Patient was on oral steroids, she was receiving IV steroids, patient also having nausea, vomiting, diarrhea for last week. Patient does not use insulin at home. Due to continued hyperglycemia, sliding scale insulin has been increased to high -dose coverage before meals at bedtime. (5) Bronchitis Current Visit: Yes Status: Acute Assessment and plan: Patient reports 1 week history of nausea, vomiting, diarrhea, productive cough with white sputum. She was treated with by mouth antibiotics and by mouth steroids. She did not get any better. She continued to feel weak and fatigued , subjective fevers for 3 days prior to arrival, MAXIMUM TEMPERATURE 103. She denies URI symptoms, any ill contacts, chest pain. Chest x-ray is negative, no leukocytosis, she has been afebrile. Plan as above. (6) Nausea vomiting and diarrhea Current Visit: Yes Status: Acute Assessment and plan: Patient reports chronic diarrhea for the past several months. Has become worse over the last week. She states that she is still having intermittent diarrhea, small amounts, it is improving. sHe also reports improvement in nausea. Continue gentle fluid IV hydration of 0.9 normal saline at 60 ml per hour Continue Prilosec, Zofran 4 mg IVP every 6 hours as needed Less and vitals are stable. (7) Dehydration Current Visit: Yes Status: Acute Assessment and plan: Resolved. Continue gentle IV fluid hydration. Labs and vitals are stable and within normal limits. - Time Spent With Patient Total time spent is greater than 50% in coordination of care (as documented) at patient's floor/unit and/or counseling patient: less than 15 minutes - Subjective Interval history: Patient was seen and assessed at 10:20 AM. She was alert, weak, very flat affect. She reports that her diarrhea improved. She reports a nonproductive cough. We discussed her hyperglycemia and we will move her to high sliding scale insulin. Patient with wheezing in anterior and posterior lung loyd. She denies chest pain or shortness of breath. She denies abdominal pain, nausea , vomiting, diarrhea. She denies any peripheral edema, headache or dizziness. - Constitutional Vitals: Temp Pulse Resp BP Pulse Ox 97.7 F 93 17 149/88 97 08/25/17 11:48 08/25/17 11:48 08/25/17 11:48 08/25/17 11:48 08/25/17 11:48 General appearance: Present: cooperative, A&O X 3, pleasant, no acute distress, answers questions appropriately - Head Head exam: Present: atraumatic, normal inspection, normocephalic - Eye Eye exam: Present: normal appearance, conjuntiva pink, sclera anicteric - Neck Neck exam general surgery: Present: supple, trachea midline. Absent: lymphadenopathy, tenderness - Respiratory Respiratory exam: Present: CTAB, wheezes. Absent: accessory muscle use, chest wall tenderness, rales, respiratory distress, rhonchi - Cardiovascular Cardiovascular exam: Present: RRR, +S1, +S2. Absent: diastolic murmur, gallop, rubs, systolic murmur - GI/Abdominal GI/Abdominal exam: Present: normal bowel sounds, soft, no peritoneal signs. Absent: distended, hepatomegaly, tenderness - Extremities Exam Extremities exam: Present: normal capillary refill, normal inspection, pedal edema, warm, radial pulses palpable and symmetrical. Absent: calf tenderness, cyanotic - Neurological Exam Neurological exam: Present: alert, oriented X3, no focal deficits. Absent: facial droop, speech deficit - Skin Skin exam: Present: dry, intact, normal color, warm. Absent: rash Internal Medicine: Result - Labs CBC & Chem 7: 08/25/17 06:25 08/25/17 03:53 Labs: Short CBC 08/25/17 Range/Units 06:25 WBC 5.3 (4.3-11.1) K/mcL Hgb 11.7 D (11.5-15.4) g/dL Hct 37.1 (35.3-44.9) % Plt Count 284 (140-400) K/mcL BMP 08/24/17 08/25/17 16:59 03:53 Sodium 132 L 136 Potassium 3.7 4.0 Chloride 100 103 Carbon Dioxide 22 L 23 BUN 11 10 Creatinine 0.54 L 0.46 L Glucose 312 H 350 H Calcium 8.9 8.9 Consult Discharge Plan - Plan Referrals: Marquise Alberto MD [Primary Care Provider] -
[2017-08-25] MEDS: traZODone 50 MG TABLET PO SCH (21:17)
[2017-08-25] MEDS: OLANZapine 10 MG TAB.RAPDIS PO SCH (21:17)
--- NOTE | 2017-08-25 23:01 | Electrocardiograph Report ---
[facility] Test Date: 2017-08-24 Pat Name: Aicha Lockhart Department: 103 Room: 3B23 Gender: F Flower Grower: : 1960 Requested By: Felix Keene Order Number: [id number] Reading MD: Marianna Russo Measurements Intervals Gray Rate: 106 P: 44 LA: 128 QRS: 79 QRSD: 91 T: 37 QT: 324 QTc: 386 Interpretive Statements SINUS TACHYCARDIA ABNORMAL RHYTHM ECG WARNING: DATA QUALITY MAY AFFECT INTERPRETATION Electronically Signed On 08-25-2017 23:00:01 EDT by Marianna Russo
[2017-08-26] MEDS: *HR* Heparin 5,000 UNIT/ML VIAL SQ SCH ×2 (03:24→19:01)
[2017-08-26] MEDS: Ipratropium/Albuterol Neb 3 ML IH SCH ×5 (04:08→19:42)
[2017-08-26 05:54] LABS: Basophils % 0.4 %; Eosinophils % 0.4 %; Hematocrit 37.8 % (35.3-44.9); Hemoglobin 11.6 g/dL (11.5-15.4); Immature Granulocytes % 1.7 % (0-4); Lymphocytes # 1.7 K/mcL (0.6-4.6); Lymphocytes % 32.2 %; Mean Corpuscular HGB Conc 30.7 g/dL (31.6-35.5); Mean Corpuscular Hemoglobin 26.9 pg (28.0-33.3); Mean Corpuscular Volume 87.7 fL (83.0-100.0); Mean Platelet Volume 9.4 fL (9.4-12.4); Monocytes # 0.4 K/mcL (0.0-1.3); Monocytes % 6.8 %; Platelet Count 280 K/mcL (140-400); Red Blood Count 4.31 M/mcL (3.82-4.97); Red Cell Distribution Width 13.2 % (11.5-14.5); Segmented Neutrophils % 58.5 %
[2017-08-26 06:41] LABS: Platelet Estimate Normal (Normal); Reactive Lymphocytes Present (Not Present)
[2017-08-26 07:10] LABS: BUN/Creatinine Ratio 20 (6-26); Blood Urea Nitrogen 11 mg/dL (6-20); Calcium 8.9 mg/dL (8.6-10.3); Carbon Dioxide 27 mEq/L (23-29); Chloride 106 mEq/L (98-107); Glucose 239 mg/dL (70-105); Osmolality,Calculated 297 (280-300); Potassium 3.7 mEq/L (3.5-5.1); Sodium 140 mEq/L (136-145); eGFR For African Americans > 60 (> 60); eGFR For Non-African Americans > 60 (> 60)
[2017-08-26] MEDS: 0.9 % Sodium Chloride 1,000 ML IVC SCH ×2 (09:41→19:26)
[2017-08-26] MEDS: Insulin LISPRO 300 UNITS/3 ML VIAL SQ SCH ×4 (09:48→20:45)
[2017-08-26] MEDS: Famotidine 20 MG TABLET PO SCH (09:51)
[2017-08-26] MEDS: Fluticasone Propionate Nasal 50 MCG/SPRAY BOTTLE NS SCH (09:51)
[2017-08-26] MEDS: predniSONE 20 MG TABLET PO SCH (09:51)
[2017-08-26] MEDS: Cholecalciferol (D-3) 1,000 UNIT TABLET PO SCH (09:52)
[2017-08-26] MEDS: Gabapentin 400 MG CAPSULE PO SCH ×4 (09:52→20:44)
[2017-08-26] MEDS: ALPRAZolam 1 MG TABLET PO SCH ×3 (09:52→20:44)
--- NOTE | 2017-08-26 10:00 | Discharge Summary ---
- NOTES TO OUTPATIENT PROVIDER Notes to Outpatient Provider: Patient has been treated for COPD exacerbation, bronchitis. She has been sent home with leti patrick, she currently already has home O2, she will continue prednisone taper, Mucinex, and Levaquin at home. Orders not resulted at time of discharge: Pending orders 08/25/17 19:10 MRSA Surveillance Screen [MOLMIC] Routine Date of Encounter: 08/26/17 Time of Encounter: 08:50 - Discharge Diagnosis (1) Diabetes mellitus Priority: Primary Status: Chronic Comments: Pt is on steroids currently, causing mild hyperglycemia. Starting taper today. Continue home medication, strict diabetic diet. Accucheck 218 this a.m. Qualifiers: Diabetes mellitus type: type 2 Diabetes mellitus terminal make up operator insulin use: without jail use Diabetes mellitus complication status: with unspecified complications Qualified Code(s): E11.8 - Type 2 diabetes mellitus with unspecified complications (2) COPD (chronic obstructive pulmonary disease) Priority: Secondary Status: Chronic Comments: Acute exacerbation. Patient with wheezing and posterior bases, improved from yesterday. Patient has home O2, 2 L continuous. She also has a nebulizer machine, requesting refills. She denies any other need for any other COPD medication. Patient also being treated for acute bronchitis. Patient does state that she feels some better and is ready to go home. Continue Duonebs at home Continue 02 Continue Levaquin 750mg po daily Prednisone taper Mucinex 600mg po BID Qualifiers: COPD type: unspecified COPD Qualified Code(s): J44.9 - Chronic obstructive pulmonary disease, unspecified (3) Hyperglycemia Priority: Secondary Status: Acute Comments: Plan as above. (4) Bronchitis Priority: Secondary Status: Acute Comments: Plan as above. (5) Nausea vomiting and diarrhea Priority: Secondary Status: Acute Comments: Resolved. Will send pt home with Zofran ODT for prn use. (6) Dehydration Priority: Secondary Status: Resolved (7) DVT prophylaxis Priority: Secondary Status: Acute Comments: Heparin SQ BID Hospital course: Ms. Lockhart is a 56 year old female with lengthy PMH of COPD, DM, mental health history and dementia. Pt presents with bronchitis, COPD exacerbation, SOB, cough , N/V/D, subjective fevers x 1 week prior to presentation to ED. Pt reports resolution of n/v/d and states that she is feeling better. Pt will be sent home on steroid taper, antibiotics, refill for duonebs, and Mucinex. Pt with hyperglycemia, will continue home medications and will improve as steroid tapers. Pt is stable and appropriate for discharge. Discharge discussed with: patient, nurse - Time Spent with Patient Total time spent providing and/or coordinating discharge services: Less than 30 minutes - Discharge Medications Prescriptions: GuaiFENesin ER [Mucinex] 600 mg PO Q12H PRN #60 tbbp.12hr PRN Reason: Cough Levofloxacin [Levaquin] 750 mg PO DAILY #5 tablet predniSONE [PredniSONE] 10 mg PO DAILY #23 tablet Home Medications: Alprazolam [Xanax] 2 mg PO TID 11/03/16 [History] Calcium Carbonate/Vitamin D3 [Calcium 500-Vit D3 200 Tablet] 1 each PO DAILY [History] Cholecalciferol (Vitamin D3) [Vitamin D3] 2,000 unit PO DAILY 11/03/16 [History] Donepezil [Aricept] 20 mg PO DAILY 11/03/16 [History] Gabapentin [Neurontin] 800 mg PO QID 11/03/16 [History] Metformin HCl [Metformin HCl ER] 1,500 mg PO QAM 11/03/16 [History] Multivitamin [Multi-Day Vitamins] 1 each PO DAILY 11/03/16 [History] OLANZapine [Zyprexa] 30 mg PO HS 11/03/16 [History] Pravastatin Sodium [Pravachol] 80 mg PO HS 11/03/16 [History] Trazodone HCl 300 mg PO HS 11/03/16 [History] Albuterol Sulfate [Ventolin Hfa] 2 puff IH Q6H PRN 08/24/17 [History] Esomeprazole Magnesium [Nexium] 40 mg PO DAILY 08/24/17 [History] Fluticasone Propionate Nasal [Flonase] 1 spr NS DAILY 08/24/17 [History] Fluticasone/Salmeterol [Advair 250-50 Diskus] 1 puff IH BID 08/24/17 [History] Ranitidine HCl [Zantac] 300 mg PO DAILY 08/24/17 [History] Tiotropium [Spiriva] 2 puff IH DAILY 08/24/17 [History] GuaiFENesin ER [Mucinex] 600 mg PO Q12H PRN #60 tbbp.12hr 08/26/17 [Rx] Levofloxacin [Levaquin] 750 mg PO DAILY #5 tablet 08/26/17 [Rx] Omeprazole [PriLOSEC] 80 mg PO DAILY capsule. 08/26/17 [Rx] predniSONE [PredniSONE] 10 mg PO DAILY #23 tablet 08/26/17 [Rx] Allergies/Adverse Reactions: 3 Allergy/AdvReac Type Severity Reaction Status Date / Time No Known Allergies Allergy Verified 12/24/16 21:40 Date of admission: 08/24/17 15:16 Primary care physician: Marquise Alberto Discharging clinician: Larisa Zeng Anticipated date of discharge: 08/26/17 - Constitutional Vitals: Temp Pulse Resp BP Pulse Ox 98.2 F 91 16 130/81 97 08/26/17 07:02 08/26/17 07:02 08/26/17 07:53 08/26/17 07:02 08/26/17 07:53 General appearance: Present: cooperative, A&O X 3, pleasant, no acute distress, answers questions appropriately - Head Head exam: Present: atraumatic, normal inspection, normocephalic - Eye Eye exam: Present: normal appearance, conjuntiva pink, sclera anicteric - Neck Neck exam general surgery: Present: supple, trachea midline. Absent: lymphadenopathy, tenderness - Respiratory Respiratory exam: Present: CTAB, wheezes. Absent: accessory muscle use, chest wall tenderness, rales, respiratory distress, rhonchi - Cardiovascular Cardiovascular exam: Present: RRR, +S1, +S2. Absent: diastolic murmur, gallop, rubs, systolic murmur - GI/Abdominal GI/Abdominal exam: Present: normal bowel sounds, soft. Absent: distended, hepatomegaly, tenderness - Extremities Exam Extremities exam: Present: normal capillary refill, warm, radial pulses palpable and symmetrical. Absent: calf tenderness, cyanotic, pedal edema, tenderness - Neurological Exam Neurological exam: Present: alert, oriented X3, no focal deficits. Absent: facial droop, speech deficit - Skin Skin exam: Present: dry, intact, normal color, warm. Absent: rash - Patient Status Disposition: Home, Self-Care Condition: Good Functional capacity at discharge: independent ambulation Overall status at discharge: patient is progressing back to baseline - Discharge Instructions Follow Up With: Marquise Alberto MD [Primary Care Provider] - 09/02/17 1:00 pm Additional Instructions: Please follow up with your primary care provider in the next 7-10 days for a recheck. Take your new medications as directed. Return to the emergency department as needed for any other problems or concerns , or if your symptoms return or worsen. Return to your normal activities as tolerated. Stay inside, try to stay out of public places until you are feeling better. Make sure you are drinking plenty of fluids, eating a diabetic diet, doing Accu- Cheks. - Diet and Activity Activity: increase activity as tolerated, resume usual activities as tolerated Diet: diabetic diet
[2017-08-26] MEDS: *HR* HYDROcodone/Acet 5/325 mg TABLET PO PRN ×2 (14:37→20:44)
[2017-08-26] MEDS: traZODone 50 MG TABLET PO SCH (20:42)
[2017-08-26] MEDS: OLANZapine 10 MG TAB.RAPDIS PO SCH (20:43)
[2017-08-27] MEDS: Ipratropium/Albuterol Neb 3 ML IH SCH ×5 (00:08→15:46)
[2017-08-27] MEDS: *HR* Heparin 5,000 UNIT/ML VIAL SQ SCH (05:55)
[2017-08-27] MEDS: Fluticasone Propionate Nasal 50 MCG/SPRAY BOTTLE NS SCH (08:33)
[2017-08-27] MEDS: Insulin LISPRO 300 UNITS/3 ML VIAL SQ SCH ×2 (08:34→13:34)
[2017-08-27] MEDS: predniSONE 20 MG TABLET PO SCH (08:36)
[2017-08-27] MEDS: Gabapentin 400 MG CAPSULE PO SCH ×2 (08:36→13:04)
[2017-08-27] MEDS: ALPRAZolam 1 MG TABLET PO SCH ×2 (08:37→15:28)
[2017-08-27] MEDS: Cholecalciferol (D-3) 1,000 UNIT TABLET PO SCH (08:37)
[2017-08-27] MEDS: Famotidine 20 MG TABLET PO SCH (08:37)
[2017-08-27] MEDS ORDERED: levoFLOXacin 750 MG TABLET PO SCH (09:00)
[2017-08-27] MEDS: 0.9 % Sodium Chloride 1,000 ML IVC SCH (11:47)
--- NOTE | 2017-08-27 15:20 | Internal Med Progress Note ---
Date of Encounter: 08/27/17 Time of Encounter: 11:15 - Assessment and plan (1) Diabetes mellitus Current Visit: Yes Status: Chronic Assessment and plan: Continue Accucheck regimen at home, diabetic diet. Pt's accuchecks appear to be at her baseline and have improved today, will continue to improve as steroids are tapered. Pt will need close follow up after discharge and will continue home medications. Qualifiers: Diabetes mellitus type: type 2 Diabetes mellitus terminal system operator insulin use: without terminal system operator use Diabetes mellitus complication status: with unspecified complications Qualified Code(s): E11.8 - Type 2 diabetes mellitus with unspecified complications (2) COPD (chronic obstructive pulmonary disease) Current Visit: Yes Status: Chronic Assessment and plan: Patient with faint expiratory wheezing in posterior lung loyd. Pt has improved since previous assessment. continue guaifenesin 600 mg every 12 hours, continue Levaquin 750 mg po daily. Pt will continue steroid taper at home. Qualifiers: COPD type: unspecified COPD Qualified Code(s): J44.9 - Chronic obstructive pulmonary disease, unspecified (3) Hyperglycemia Current Visit: Yes Status: Acute Assessment and plan: Pt appears to be chronically hyperglycemic. Accuchecks improving today. Pt will require close follow up with PCP. Restart home medications. Strict carbohydrate counting and diabetic diet, increase po fluid intake. MOnitor accuchecks achs. (4) Bronchitis Current Visit: Yes Status: Acute Assessment and plan: Chest x-ray is negative, no leukocytosis, she has been afebrile. Plan as above for COPD (5) Nausea vomiting and diarrhea Current Visit: Yes Status: Acute Assessment and plan: Patient reports chronic diarrhea for the past several months. Was worse over the last week, resolved. Denies diarrhea, nausea resolved, as well. Follow up with PCP. (6) Dehydration Current Visit: Yes Status: Resolved Assessment and plan: Resolved. Labs WNL. (7) DVT prophylaxis Current Visit: Yes Status: Acute Assessment and plan: Heparin SQ twice daily - Time Spent With Patient Total time spent is greater than 50% in coordination of care (as documented) at patient's floor/unit and/or counseling patient: less than 15 minutes - Subjective Interval history: Patient was seen and assessed at 1115 AM. She was alert, awake, oriented. She denies n/v/d. She reports a nonproductive cough. We discussed her hyperglycemia and we will move her to high sliding scale insulin. Pt's accuchecks appear to be pretty much at her baseline and will decline as steroids are tapered. Patient with faint wheezing in anterior and posterior lung loyd, improved. She denies chest pain or shortness of breath. She denies abdominal pain, nausea, vomiting, diarrhea. She denies any peripheral edema, headache or dizziness. - Constitutional Vitals: Temp Pulse Resp BP Pulse Ox 98.4 F 102 18 134/72 96 08/27/17 12:21 08/27/17 12:21 08/27/17 12:21 08/27/17 12:21 08/27/17 12:21 General appearance: Present: cooperative, A&O X 3, pleasant, no acute distress, answers questions appropriately - Head Head exam: Present: atraumatic, normal inspection, normocephalic - Eye Eye exam: Present: normal appearance, conjuntiva pink, sclera anicteric - Neck Neck exam general surgery: Present: normal inspection, supple, trachea midline. Absent: lymphadenopathy, tenderness - Respiratory Respiratory exam: Present: CTAB, wheezes. Absent: accessory muscle use, chest wall tenderness, rales, respiratory distress, rhonchi - Cardiovascular Cardiovascular exam: Present: RRR, +S1, +S2. Absent: diastolic murmur, gallop, rubs, systolic murmur - GI/Abdominal GI/Abdominal exam: Present: normal bowel sounds, soft. Absent: distended, hepatomegaly, tenderness - Extremities Exam Extremities exam: Present: normal capillary refill, normal inspection, warm, radial pulses palpable and symmetrical. Absent: calf tenderness, cyanotic, pedal edema, tenderness - Neurological Exam Neurological exam: Present: alert, oriented X3, no focal deficits. Absent: facial droop, speech deficit - Skin Skin exam: Present: dry, intact, warm. Absent: rash Internal Medicine: Result - Labs CBC & Chem 7: 08/26/17 03:42 08/26/17 03:42 Consult Discharge Plan - Plan Additional Instructions: Please follow up with your primary care provider in the next 7-10 days for a recheck. Take your new medications as directed. Return to the emergency department as needed for any other problems or concerns , or if your symptoms return or worsen. Return to your normal activities as tolerated. Stay inside, try to stay out of public places until you are feeling better. Make sure you are drinking plenty of fluids, eating a diabetic diet, doing Accu- Cheks. Referrals: Marquise Alberto MD [Primary Care Provider] - 09/02/17 1:00 pm Prescriptions: GuaiFENesin ER [Mucinex] 600 mg PO Q12H PRN #60 tbbp.12hr PRN Reason: Cough Levofloxacin [Levaquin] 750 mg PO DAILY #5 tablet predniSONE [PredniSONE] 10 mg PO DAILY #23 tablet
[2017-08-27 16:11] VITALS: BP 138/79
== END 2017-08-27 17:30 | disposition home or self-care (01) ==
LOC: EMEROO 11:46 → 3BNU 11:46
PROVIDERS: ADMIT Nurse Practitioner; ATTEND Registered Nurse

== ENCOUNTER 2018-01-05 12:07 | Observation (INO) ==
[2018-01-05] MEDS ORDERED: *HR* OxyCODONE/APAP 5/325 TABLET PO ONE (12:36)
[2018-01-05 13:18] LABS: Basophils % 0.4 %; Eosinophils # 0.2 K/mcL (0.0-0.6); Eosinophils % 3.1 %; Hematocrit 40.5 % (35.3-44.9); Hemoglobin 12.9 g/dL (11.5-15.4); Immature Granulocytes % 0.1 % (0-4); Lymphocytes # 1.6 K/mcL (0.6-4.6); Lymphocytes % 20.8 %; Mean Corpuscular HGB Conc 31.9 g/dL (31.6-35.5); Mean Corpuscular Volume 84.7 fL (83.0-100.0); Mean Platelet Volume 9.1 fL (9.4-12.4); Monocytes # 0.4 K/mcL (0.0-1.3); Monocytes % 5.7 %; Neutrophils # 5.4 K/mcL (1.6-8.9); Platelet Count 285 K/mcL (140-400); Red Blood Count 4.78 M/mcL (3.82-4.97); Red Cell Distribution Width 13.6 % (11.5-14.5); Segmented Neutrophils % 69.9 %
[2018-01-05 13:36] LABS: BUN/Creatinine Ratio 11 (6-26); Blood Urea Nitrogen 6 mg/dL (6-20); Calcium 9.9 mg/dL (8.6-10.3); Carbon Dioxide 29 mEq/L (23-29); Chloride 105 mEq/L (98-107); Glucose 133 mg/dL (70-105); Osmolality,Calculated 292 (280-300); Potassium 3.8 mEq/L (3.5-5.1); Sodium 141 mEq/L (136-145); eGFR For Non-African Americans > 60 (> 60)
[2018-01-05] MEDS ORDERED: Piperacillin/Tazobactam 3.375 GM in 0.9 % Sodium Chloride Mini Bag 100 ML IVPB ONE (14:26)
--- NOTE | 2018-01-05 14:49 | Emergency Department Note ---
Disposition Clinical Impression: Otitis externa Disposition: Admitted As Inpatient Condition: Fair Referrals: Pradeep Mehta MD [Primary Care Provider] - Time of Disposition: 14:30 Ear HPI - General Chief complaint: ED Ear Stated complaint: Right ear swollen closed Time Seen by Provider: 01/05/18 12:16 Source: patient Mode of arrival: ambulatory Limitations: no limitations Nursing Notes Reviewed: Yes Vital Signs Reviewed: Yes - History of Present Illness HPI Narrative: 57-year-old female presents emergency Department with concerns of pain to the right ear. Patient states symptoms have present over the past 3 days. She has a history of similar symptoms in the past when she developed mastoiditis requiring admission to the hospital for a week. Patient is a diabetic but states that she generally controls her blood sugar very well. Patient states she had severe pain to the right ear and has been using hydrogen peroxide over the past 2-3 days without improvement of symptoms. Patient denies fever, chills , nausea, vomiting. She denies chest pain, shortness of breath, abdominal pain , diarrhea, hematochezia, melena. - Related Data Home Medications Medication Instructions Recorded Confirmed Alprazolam [Xanax] 2 mg PO TID 11/03/16 08/24/17 Calcium Carbonate/Vitamin D3 1 each PO DAILY 11/03/16 08/24/17 [Calcium 500-Vit D3 200 Tablet] Cholecalciferol (Vitamin D3) 2,000 unit PO DAILY 11/03/16 08/24/17 [Vitamin D3] Donepezil [Aricept] 20 mg PO DAILY 11/03/16 08/24/17 Gabapentin [Neurontin] 800 mg PO QID 11/03/16 08/24/17 Metformin HCl [Metformin HCl ER] 1,500 mg PO QAM 11/03/16 08/24/17 Multivitamin [Multi-Day Vitamins] 1 each PO DAILY 11/03/16 08/24/17 OLANZapine [Zyprexa] 30 mg PO HS 11/03/16 08/24/17 Pravastatin Sodium [Pravachol] 80 mg PO HS 11/03/16 08/24/17 Trazodone HCl 300 mg PO HS 11/03/16 08/24/17 Albuterol Sulfate [Ventolin Hfa] 2 puff IH Q6H PRN 08/24/17 08/24/17 Esomeprazole Magnesium [Nexium] 40 mg PO DAILY 08/24/17 08/24/17 Fluticasone Propionate Nasal 1 spr NS DAILY 08/24/17 08/24/17 [Flonase] Fluticasone/Salmeterol [Advair 1 puff IH BID 08/24/17 08/24/17 250-50 Diskus] Ranitidine HCl [Zantac] 300 mg PO DAILY 08/24/17 08/24/17 Tiotropium [Spiriva] 2 puff IH DAILY 08/24/17 08/24/17 Previous Rx's Medication Instructions Recorded GuaiFENesin ER [Mucinex] 600 mg PO Q12H PRN #60 tbbp.12hr 08/26/17 Levofloxacin [Levaquin] 750 mg PO DAILY #5 tablet 08/26/17 Omeprazole [PriLOSEC] 80 mg PO DAILY capsule. 08/26/17 predniSONE [PredniSONE] 10 mg PO DAILY #23 tablet 08/26/17 Allergies Allergy/AdvReac Type Severity Reaction Status Date / Time No Known Allergies Allergy Verified 01/05/18 12:14 All systems ED: reviewed and negative except as stated. Review of Systems: As Per HPI Past Medical History - Past Medical History Attestation: Yes The following information was validated with the patient. Source: patient Medical history: Reports: COPD, dementia, diabetes, other Surgical history: Reports: hysterectomy, other Psychiatric history: Reports: bipolar - Social History Smoking Status: Never smoker Smokeless Tobacco Status: No Alcohol use: Reports: none Drug use: Reports: none Physical Exam General: Alert and in no acute distress Skin: Warm, dry, intact Head: Normocephalic and atraumatic ENT: Tenderness to palpation of the right pinna, mild erythema and ulceration to the external auditory canal on the right. Tympanic membrane dull with likely purulent fluid behind it. Neck: Supple, trachea midline and no tenderness Cardiovascular: RRR, no murmur, normal perfusion Respiratory: CTAB, no wheezing, cough, or respiratory distress Musculoskeletal: Normal strength, no tenderness, swelling or deformity GI: Soft, nontender, nondistended. Bowel sounds present Neuro: A&O to person, place, time and situation. No focal deficits noted on exam Psychiatric: cooperative and appropriate mood and affect. - General Limitations: no limitations General appearance: alert, in no apparent distress Course Vital Signs Temperature 98.5 F 01/05/18 12:12 Pulse Rate 94 01/05/18 12:12 Respiratory Rate 18 01/05/18 12:12 Blood Pressure 155/86 01/05/18 12:12 O2 Sat by Pulse Oximetry 96 01/05/18 12:12 Temperature 98.5 F 01/05/18 13:04 Pulse Rate 94 01/05/18 13:04 Respiratory Rate 18 01/05/18 13:04 Blood Pressure 155/86 01/05/18 13:04 O2 Sat by Pulse Oximetry 96 01/05/18 13:04 Oxygen Delivery Oxygen Delivery Nasal Cannula Medical Decision Making - MDM Narrative Medical decision making narrative: Patient had inflammation of the external auditory canal on CT there is mild opacification of the mastoid but no evidence of coalescent otomastoiditis. I spoke with the patient's primary care physician, Dr. Mehta, who stated he would be unable to see the patient in the office tomorrow or the next day and one of the patient admitted to the hospital for antibiotics and further evaluation. Patient was admitted to the hospitalist who requested that I speak with the ENT physician. I spoke with Dr. Bird who is aware of the patient's case and presentation and will see the patient in the hospital. Patient felt comfortable with this plan of action. - Medical Records Medical records reviewed: Yes I reviewed the patient's medical records. - Lab Data Lab results reviewed: Yes I reviewed the patient's lab results. Result diagrams: 01/05/18 13:02 01/05/18 13:02 Lab Results 01/05/18 01/05/18 Range/Units 13:02 13:02 WBC 7.8 (4.3-11.1) K/mcL RBC 4.78 (3.82-4.97) M/mcL Hgb 12.9 (11.5-15.4) g/dL Hct 40.5 (35.3-44.9) % MCV 84.7 (83.0-100.0) fL MCH 27.0 L (28.0-33.3) pg MCHC 31.9 (31.6-35.5) g/dL RDW 13.6 (11.5-14.5) % Plt Count 285 (140-400) K/mcL MPV 9.1 L (9.4-12.4) fL Immature Gran % 0.1 (0-4) % Seg Neutrophils % 69.9 % Lymphocytes % 20.8 % Monocytes % 5.7 % Eosinophils % 3.1 % Basophils % 0.4 % Neutrophils # 5.4 (1.6-8.9) K/mcL Lymphocytes # 1.6 (0.6-4.6) K/mcL Monocytes # 0.4 (0.0-1.3) K/mcL Eosinophils # 0.2 (0.0-0.6) K/mcL Basophils # 0.0 (0.0-0.2) K/mcL Sodium 141 (136-145) mEq/L Potassium 3.8 (3.5-5.1) mEq/L Chloride 105 (98-107) mEq/L Carbon Dioxide 29 (23-29) mEq/L BUN 6 (6-20) mg/dL Creatinine 0.56 L (0.60-1.20) mg/dL Est GFR ( Amer) > 60 (> 60) Est GFR (Non-Af Amer) > 60 (> 60) BUN/Creatinine Ratio 11 (6-26) Glucose 133 H (70-105) mg/dL Calculated Osmolality 292 (280-300) Calcium 9.9 (8.6-10.3) mg/dL - Radiology Data Radiology results reviewed: Yes I reviewed the patient's radiology results.
[2018-01-05] MEDS ORDERED: Ondansetron 4 MG/2 ML VIAL IVP PRN (16:07)
[2018-01-05] MEDS ORDERED: Naloxone 0.4 MG/ML INJ IVP PRN (16:07)
[2018-01-05] MEDS: Gabapentin 400 MG CAPSULE PO SCH ×2 (16:50→20:48)
[2018-01-05] MEDS: *HR* HYDROcodone/Acet 5/325 mg TABLET PO PRN ×2 (16:50→23:21)
[2018-01-05] MEDS: 0.9 % Sodium Chloride 1,000 ML IVC SCH (16:51)
--- NOTE | 2018-01-05 17:48 | ENT - Consult Note ---
Date of Encounter: 01/06/18 Time of Encounter: 17:42 Assessment and Plan (1) Perichondritis and chondritis of right pinna Current Visit: Yes Status: Acute Patient is currently on Vancomycin and Zosyn and which offer Pseudomonas coverage with zosyn. Can also consider Ciprofloxicin when transition to PO. If patient fails standard therapy, would consider Nectrotizing Otitis Externa on differential diagnosis given history of Diabetes vs. perichondrotis/otitis externa since presentation is in early stages. In this case, consider ESR and CRP and possible bone scan (Technitium 99m) if patient fails to improve. Recommend warm compresses to the affected ear (Right). Consider IV or Oral Corticosteriod treatment if patient can tolerate given history of Diabetes. Continue blood glucose control. Otowick placed and begin on Ciprodex (4 gtts to right ear BID x 7 days). (2) Otalgia, right ear Current Visit: Yes Status: Acute Plan as noted above. (3) Otitis externa of right ear Current Visit: Yes Status: Acute See Plan for Above. Qualifiers: Otitis externa type: unspecified type Chronicity: acute Qualified Code(s) : H60.501 - Unspecified acute noninfective otitis externa, right ear (4) Deviated nasal septum Current Visit: Yes Status: Acute Currently Asymptomatic. Recommend Observation at this time. (5) Impacted cerumen of left ear Current Visit: Yes Status: Acute Will have patient follow up as outpatient for removal. History of Present Illness Consult date: 01/05/18 Reason for ENT Consult: other (Right Otalgia--Concern for Acute Mastoiditis) History of present illness: This is a 57-year-old female with history of Diabetes (Last A1c at 7.1%, patient states average glucose approximately 150), who was seen in the ED with a cc of right otalgia x 2-3 days. ENT is being asked to evaluate. The patient has not noted any purulent otorrhea, new hearing loss, dizziness, or headache. She denies any swelling or pain behind the ear, but does admit to swelling and extreme tenderness of the external ear (pinna) as well as the ear canal. She denies any recent trauma to the ear. She denies any focal neurological deficits including facial weakness. She has had an episode of what she believes was acute mastoiditis years ago, but also states that the infection at that time caused her face to swell on the affected side. While being seen in the emergency department, a CT scan was ordered and did show opacification of the right mastoid air cells without convalescence of the air cells or loss of septations. There was partial opacification of the left mastoid air cells. There was opacification of the right middle ear space but there was no evidence of ossicular chain disruption or erosion. In the ED, the patient was placed on vancomycin and zosyn. She is not currently on any steroid treatment or topical antimicrobial. Past Med Surg Social Fam HX - Past Medical History Medical history: COPD, dementia, diabetes, other Additional medical history: MRSA infection. Scar tissue on chest and has follow up scheduled Psychiatric history: bipolar - Past Surgical History Surgical History: hysterectomy, other Additional surgical history: d&C, tonsilectomy - Social History Smoking Status: Never smoker Smokeless Tobacco Status: No Alcohol use: none Drug use: none Medications and Allergies Alprazolam [Xanax] 2 mg PO TID 11/03/16 [History] Calcium Carbonate/Vitamin D3 [Calcium 500-Vit D3 200 Tablet] 1 each PO DAILY [History] Cholecalciferol (Vitamin D3) [Vitamin D3] 2,000 unit PO DAILY 11/03/16 [History] Donepezil [Aricept] 20 mg PO DAILY 11/03/16 [History] Gabapentin [Neurontin] 800 mg PO QID 11/03/16 [History] Metformin HCl [Metformin HCl ER] 1,500 mg PO QAM 11/03/16 [History] Multivitamin [Multi-Day Vitamins] 1 each PO DAILY 11/03/16 [History] OLANZapine [Zyprexa] 30 mg PO HS 11/03/16 [History] Pravastatin Sodium [Pravachol] 80 mg PO HS 11/03/16 [History] Trazodone HCl 300 mg PO HS 11/03/16 [History] Albuterol Sulfate [Ventolin Hfa] 2 puff IH Q6H PRN 08/24/17 [History] Esomeprazole Magnesium [Nexium] 40 mg PO DAILY 08/24/17 [History] Fluticasone Propionate Nasal [Flonase] 1 spr NS DAILY 08/24/17 [History] Fluticasone/Salmeterol [Advair 250-50 Diskus] 1 puff IH BID 08/24/17 [History] Ranitidine HCl [Zantac] 300 mg PO DAILY 08/24/17 [History] Tiotropium [Spiriva] 2 puff IH DAILY 08/24/17 [History] GuaiFENesin ER [Mucinex] 600 mg PO Q12H PRN #60 tbbp.12hr 08/26/17 [Rx] Levofloxacin [Levaquin] 750 mg PO DAILY #5 tablet 08/26/17 [Rx] Omeprazole [PriLOSEC] 80 mg PO DAILY capsule. 08/26/17 [Rx] 3 Allergy/AdvReac Type Severity Reaction Status Date / Time No Known Allergies Allergy Verified 01/05/18 12:14 ENT - ROS - Constitutional Constitutional ROS: no daytime sleepiness, no fever(s), no lethargy, no snoring , no stops breathing during sleep - EENT Ears: right: earache (As per history of present illness) Nose, mouth and throat: as per HPI - Cardiovascular Cardiovascular ROS IM: no chest pain, no chest pain at rest, no chest pain with activity, no dyspnea, no edema, no irregular heart rhythm, no radiating jaw, neck or arm pain, no lightheadedness, no orthopnea, no paroxysmal nocturnal dyspnea, no syncope - Respiratory no cough, no dyspnea, no hemoptysis, no dyspnea on exertion, no wheezing, no snoring, no stridor, no pain on inspiration, no chest congestion, no excessive phlegm production, no change in phlegm color, no pain with cough - Gastrointestinal Gastrointestinal: no coffee ground emesis, no constipation, no diarrhea, no dyspepsia, no dysphagia, no heartburn, no nausea, no odynophagia, no vomiting - Endocrine Endocrine: no cold intolerance, no deeping of the voice, no excessive sweating, no fatigue, no flushing, no heat intolerance, no palpitations, no polydipsia, no polyphagia, no polyuria - Allergic/Immunologic no tongue swelling, no throat swelling, no itchy eyes, no seasonal rhinorrhea, no uticaria, no wheezing, no GI upset with certain foods, no lip swelling ENT Exam Initial Vital Signs Temp Pulse Resp BP Pulse Ox 98.5 F 94 18 155/86 96 01/05/18 12:12 01/05/18 12:12 01/05/18 12:12 01/05/18 12:12 01/05/18 12:12 - General physical appearance well developed, well nourished, no distress, no pain. negative: moderate distress, severe distress, moderate pain, severe pain, cachectic, obese - Eyes PERRL, normal ocular movement - ENT deviated nasal septum, atraumatic, normocephalic, CN 2-12 grossly intact, Other (No erythema or edema noted over the right mastoid). negative: normal pinna ( The right pinna and alma bowl are erythematous, edematous and tender to palpation. There is no evidence of abscess. The EAC on the right is occluded due to edema. No evidence of cartilage destruction. The lobule was not involved. The skin of the EAC is erythematous and tender to palpation. There is no otorrhea noted. Visualization of the right TM was blocked by the edema of the EAC. The left external ear was within normal limits, the EAC was occluded with cerumen. ) - Neck no masses, trachea midline, no lymphadectomy. negative: deviated trachea, diffuse goiter, limited ROM - Respiratory normal expansion, normal respiratory effort, clear to percussion, clear to auscultation - Neurologic normal coordination, normal sensation Exam Initial Vital Signs Temp Pulse Resp BP Pulse Ox 98.5 F 94 18 155/86 96 01/05/18 12:12 01/05/18 12:12 01/05/18 12:12 01/05/18 12:12 01/05/18 12:12 Results - Labs 01/06/18 05:29 01/06/18 05:29 Abnormal lab results MCH 27.0 pg (28.0-33.3) L 01/05/18 13:02 MPV 9.1 fL (9.4-12.4) L 01/05/18 13:02 Creatinine 0.56 mg/dL (0.60-1.20) L 01/05/18 13:02 Glucose 133 mg/dL (70-105) H 01/05/18 13:02 All other labs normal. - Imaging Additional studies: The CT scan of the temporal bone was reviewed. Consult Discharge Plan - Plan Referrals: Pradeep Mehta MD [Primary Care Provider] -
[2018-01-05] MEDS ORDERED: *HR* Dextrose 50 % in Water (Syg) 50 ML SYRINGE IVP PRN (18:22)
[2018-01-05] MEDS ORDERED: D5% in Water 1,000 ML IVC PRN (18:22)
[2018-01-05] MEDS ORDERED: Dextrose Gel 15 GM/37.5 ML TUBE PO PRN ×2 (18:22)
--- NOTE | 2018-01-05 19:57 | Internal Med History&Physical ---
Date of Encounter: 01/05/18 Time of Encounter: 04:15 Internal Medicine - H&P: HPI Chief complaint: Rt ear pain Admitted From: Emergency Dept Plans for Post Hospital Care: Home History of present illness: Ms. Lockhart is a 57 year old female Patient is a 57-year-old female with past medical history of diabetes, COPD, dementia, bipolar disorder, fibromyalgia came in with complaint of right ear pain and swelling for 3 days. Patient mentioned pain was so severe in intensity right more than left. She denied anyfever chills nausea vomiting diarrhea. She has decreased hearing in the right ear. Also complaining of discharge for 2-3 days from the ear. She denies any dizziness. Had similar episode of ear pain about a year ago. Past Med Surg Social Fam HX - Past Medical History Medical history: COPD, dementia, diabetes, fibromyalgia, other Additional medical history: MRSA infection. Scar tissue on chest and has follow up scheduled Psychiatric history: bipolar - Past Surgical History Surgical History: hysterectomy, other Additional surgical history: d&C, tonsilectomy - Social History Smoking Status: Never smoker Smokeless Tobacco Status: No Alcohol use: none Drug use: none Internal Medicine - H&P: Meds Alprazolam [Xanax] 2 mg PO TID 11/03/16 [History] Calcium Carbonate/Vitamin D3 [Calcium 500-Vit D3 200 Tablet] 1 each PO DAILY [History] Cholecalciferol (Vitamin D3) [Vitamin D3] 2,000 unit PO DAILY 11/03/16 [History] Donepezil [Aricept] 20 mg PO DAILY 11/03/16 [History] Gabapentin [Neurontin] 800 mg PO QID 11/03/16 [History] Metformin HCl [Metformin HCl ER] 1,500 mg PO QAM 11/03/16 [History] Multivitamin [Multi-Day Vitamins] 1 each PO DAILY 11/03/16 [History] OLANZapine [Zyprexa] 30 mg PO HS 11/03/16 [History] Pravastatin Sodium [Pravachol] 80 mg PO HS 11/03/16 [History] Trazodone HCl 300 mg PO HS 11/03/16 [History] Albuterol Sulfate [Ventolin Hfa] 2 puff IH Q6H PRN 08/24/17 [History] Esomeprazole Magnesium [Nexium] 40 mg PO DAILY 08/24/17 [History] Fluticasone Propionate Nasal [Flonase] 1 spr NS DAILY 08/24/17 [History] Fluticasone/Salmeterol [Advair 250-50 Diskus] 1 puff IH BID 08/24/17 [History] Ranitidine HCl [Zantac] 300 mg PO DAILY 08/24/17 [History] Tiotropium [Spiriva] 2 puff IH DAILY 08/24/17 [History] GuaiFENesin ER [Mucinex] 600 mg PO Q12H PRN #60 tbbp.12hr 08/26/17 [Rx] Levofloxacin [Levaquin] 750 mg PO DAILY #5 tablet 08/26/17 [Rx] Omeprazole [PriLOSEC] 80 mg PO DAILY capsule. 08/26/17 [Rx] 3 Allergy/AdvReac Type Severity Reaction Status Date / Time No Known Allergies Allergy Verified 01/05/18 12:14 All Systems PM: A 10-system review of systems was performed and is negative for pertinent findings except as documented above in the HPI. - Constitutional Constitutional: as per HPI - EENT Eyes: no other visual disturbances Ears: as per HPI - Constitutional Vitals: Temp Pulse Resp BP Pulse Ox 97.9 F 76 15 122/77 97 01/05/18 18:40 01/05/18 18:40 01/05/18 18:40 01/05/18 18:40 01/05/18 18:40 Exam: - Head Head exam: Present: atraumatic, normocephalic EAR: Rt ear swollen pain full and red. Couldnt visualized TM due to pain. Left ear painful with cerumen - Eye Eye exam: Present: PERRL, conjuntiva pink, sclera anicteric Pupils: Present: PERRL - Neck Neck exam general surgery: Present: supple, trachea midline. Absent: lymphadenopathy - Respiratory Respiratory exam: Present: CTAB. Absent: accessory muscle use, rales, rhonchi, wheezes - Cardiovascular Cardiovascular exam: Present: RRR, +S1, +S2. Absent: diastolic murmur, gallop, rubs, systolic murmur - GI/Abdominal GI/Abdominal exam: Present: normal bowel sounds, soft, no peritoneal signs. Absent: distended, tenderness - Extremities Exam Extremities exam: Present: warm, radial pulses palpable and symmetrical. Absent : calf tenderness, cyanotic, pedal edema - Neurological Exam Neurological exam: Present: CN II-XII intact, motor sensory deficit, oriented X3. Absent: pronater drift, facial droop, speech deficit - Skin Skin exam: Present: dry, intact Internal Med - H&P Results - Labs CBC & Chem 7: 01/05/18 13:02 01/05/18 13:02 - Assessment and plan (1) Otalgia, right ear Current Visit: Yes Status: Acute Assessment and plan: Patient has pain in the right ear likely due to inflammation of cartilage versus otitis externa. Given the history of diabetes concern for mastoiditis and necrotizing otitis externa. CT scan showed mild of opacification of mastoid but no evidence of coalescent otomastoiditis. We will continue patient on IV vancomycin and Zosyn. We will obtain ENT consult (2) Fibromyalgia Current Visit: Yes Status: Acute Assessment and plan: We will continue patient's home pain medication (3) COPD (chronic obstructive pulmonary disease) Current Visit: No Status: Chronic Assessment and plan: Continue home Symbicort Qualifiers: COPD type: unspecified COPD Qualified Code(s): J44.9 - Chronic obstructive pulmonary disease, unspecified (4) Diabetes mellitus Current Visit: No Status: Chronic Assessment and plan: Hold patient's home metformin. We will keep patient on 10 units of Levemir at bedtime. Accu-Cheks Qualifiers: Diabetes mellitus type: type 2 Diabetes mellitus termite treater insulin use: without termite treater use Diabetes mellitus complication status: with unspecified complications Qualified Code(s): E11.8 - Type 2 diabetes mellitus with unspecified complications - Time Spent With Patient Total time spent is greater than 50% in coordination of care (as documented) at patient's floor/unit and/or counseling patient: Greater than 35 minutes
[2018-01-05] MEDS: Budesonide/Formoterol 80/4.5 MDI IH SCH (20:01)
[2018-01-05] MEDS: OLANZapine 10 MG TAB.RAPDIS PO SCH (20:49)
[2018-01-05] MEDS: traZODone 50 MG TABLET PO SCH (20:49)
[2018-01-05] MEDS ORDERED: Insulin DETEMIR 100 UNIT/ML X5UNITS SQ SCH (21:00)
[2018-01-05] MEDS: ALPRAZolam 1 MG TABLET PO PRN (22:04)
[2018-01-05] MEDS: Piperacillin/Tazobactam 3.375 GM in 0.9 % Sodium Chloride Mini Bag 100 ML IVPB SCH (23:20)
[2018-01-06] MEDS: 0.9 % Sodium Chloride 1,000 ML IVC SCH (03:20)
[2018-01-06] MEDS: *HR* Enoxaparin 40 MG/0.4 ML SYRINGE SQ SCH (05:14)
[2018-01-06 05:49] LABS: Basophils % 0.3 %; Eosinophils # 0.3 K/mcL (0.0-0.6); Eosinophils % 4.9 %; Hemoglobin 11.6 g/dL (11.5-15.4); Immature Granulocytes % 0.2 % (0-4); Lymphocytes # 1.9 K/mcL (0.6-4.6); Mean Corpuscular HGB Conc 30.5 g/dL (31.6-35.5); Mean Corpuscular Hemoglobin 26.2 pg (28.0-33.3); Mean Platelet Volume 9.3 fL (9.4-12.4); Monocytes # 0.5 K/mcL (0.0-1.3); Monocytes % 7.2 %; Neutrophils # 3.8 K/mcL (1.6-8.9); Platelet Count 247 K/mcL (140-400); Red Blood Count 4.42 M/mcL (3.82-4.97); Red Cell Distribution Width 13.8 % (11.5-14.5); Segmented Neutrophils % 58.4 %
[2018-01-06 06:10] LABS: BUN/Creatinine Ratio 11 (6-26); Blood Urea Nitrogen 7 mg/dL (6-20); Calcium 8.8 mg/dL (8.6-10.3); Carbon Dioxide 24 mEq/L (23-29); Chloride 107 mEq/L (98-107); Glucose 184 mg/dL (70-105); Osmolality,Calculated 293 (280-300); Potassium 3.4 mEq/L (3.5-5.1); Sodium 140 mEq/L (136-145); eGFR For Non-African Americans > 60 (> 60)
[2018-01-06] MEDS: Multivit/Ca/Min/Fe/FA 1 TAB TABLET PO SCH (07:37)
[2018-01-06] MEDS: Famotidine 20 MG TABLET PO SCH (07:37)
[2018-01-06] MEDS: Fluticasone Propionate Nasal 50 MCG/SPRAY BOTTLE NS SCH (07:38)
[2018-01-06] MEDS: Piperacillin/Tazobactam 3.375 GM in 0.9 % Sodium Chloride Mini Bag 100 ML IVPB SCH ×2 (07:38→15:21)
[2018-01-06] MEDS: Cholecalciferol (D-3) 1,000 UNIT TABLET PO SCH (07:38)
[2018-01-06] MEDS: Gabapentin 400 MG CAPSULE PO SCH ×4 (07:38→20:16)
[2018-01-06] MEDS: *HR* HYDROcodone/Acet 5/325 mg TABLET PO PRN (07:50)
[2018-01-06] MEDS: Tiotropium 18 MCG inhalation IH SCH (10:11)
[2018-01-06] MEDS: Budesonide/Formoterol 80/4.5 MDI IH SCH ×2 (10:11→20:08)
[2018-01-06] MEDS: Ciprofloxacin/Dex *EAR* Susp 7.5 ML BOTTLE RIGHT EAR SCH ×2 (11:24→20:21)
[2018-01-06] MEDS: Acetaminophen 325 MG TABLET PO PRN ×2 (11:31→20:16)
--- NOTE | 2018-01-06 12:57 | Internal Med Progress Note ---
Hospitalist Progress Note - Encounter Date of Encounter: 01/06/18 Time of Encounter: 13:38 - Subjective Interval History: Patient seen and examined this morning. Patient feels much better swelling and redness also decreased. Denies fevers chills or diarrhea - Exam Vitals: Temp Pulse Resp BP Pulse Ox 97.9 F 91 16 136/75 96 01/06/18 10:48 01/06/18 10:48 01/06/18 10:48 01/06/18 10:48 01/06/18 10:48 Exam: - Head Head exam: Present: atraumatic, normocephalic EAR: Rt ear swollen pain full and red. Couldnt visualized TM due to pain. Pain, redness and swelling decreasing. Left ear painful with cerumen - Eye Eye exam: Present: PERRL, conjuntiva pink, sclera anicteric Pupils: Present: PERRL - Neck Neck exam general surgery: Present: supple, trachea midline. Absent: lymphadenopathy - Respiratory Respiratory exam: Present: CTAB. Absent: accessory muscle use, rales, rhonchi, wheezes - Cardiovascular Cardiovascular exam: Present: RRR, +S1, +S2. Absent: diastolic murmur, gallop, rubs, systolic murmur - GI/Abdominal GI/Abdominal exam: Present: normal bowel sounds, soft, no peritoneal signs. Absent: distended, tenderness - Extremities Exam Extremities exam: Present: warm, radial pulses palpable and symmetrical. Absent : calf tenderness, cyanotic, pedal edema - Skin Skin exam: Present: dry, intact - Assessment and Plan (1) Otalgia, right ear Current Visit: Yes Status: Acute Assessment and Plan: Patient has pain in the right ear from perichondritis and chondritis. Given the history of diabetes concern for mastoiditis and necrotizing otitis externa. CT scan showed mild of opacification of mastoid but no evidence of coalescent otomastoiditis. We will continue patient on IV vancomycin and Zosyn. ENT consult appecreciated. Will start steroids. (2) Fibromyalgia Current Visit: Yes Status: Acute Assessment and Plan: We will continue patient's home pain medication (3) COPD (chronic obstructive pulmonary disease) Current Visit: No Status: Chronic Assessment and Plan: Continue home Symbicort, prn albuterol (4) Diabetes mellitus Current Visit: No Status: Chronic Assessment and Plan: Hold patient's home metformin. BG on lower end. We decrease levemir to 8 units of Levemir at bedtime. Accu-Cheks. As patient is start on steroids expect some worsening of BG - Time Spent with Patient Total time spent is greater than 50% in coordination of care (as documented) at patient's floor/unit and/or counseling patient: Internal Medicine: Result - Labs CBC & Chem 7: 01/06/18 05:29 01/06/18 05:29 Labs: Short CBC 01/06/18 Range/Units 05:29 WBC 6.5 (4.3-11.1) K/mcL Hgb 11.6 (11.5-15.4) g/dL Hct 38.0 (35.3-44.9) % Plt Count 247 (140-400) K/mcL Neutrophils # 3.8 (1.6-8.9) K/mcL BMP 01/06/18 05:29 Sodium 140 Potassium 3.4 L Chloride 107 Carbon Dioxide 24 BUN 7 Creatinine 0.65 Glucose 184 H Calcium 8.8 Consult Discharge Plan - Plan Referrals: Pradeep Mehta MD [Primary Care Provider] - (3) COPD (chronic obstructive pulmonary disease) Qualifiers: COPD type: unspecified COPD Qualified Code(s): J44.9 - Chronic obstructive pulmonary disease, unspecified (4) Diabetes mellitus Qualifiers: Diabetes mellitus type: type 2 Diabetes mellitus termite treater insulin use: without termite treater use Diabetes mellitus complication status: with unspecified complications Qualified Code(s): E11.8 - Type 2 diabetes mellitus with unspecified complications
[2018-01-06] MEDS ORDERED: predniSONE 5 MG TABLET PO SCH (13:30)
[2018-01-06] MEDS ORDERED: Insulin DETEMIR 100 UNIT/ML X5UNITS SQ SCH ×2 (13:33→21:00)
[2018-01-06] MEDS: predniSONE 10 MG TABLET PO SCH (14:06)
[2018-01-06] MEDS: ALPRAZolam 1 MG TABLET PO PRN (15:21)
[2018-01-06] MEDS: OLANZapine 10 MG TAB.RAPDIS PO SCH (20:15)
[2018-01-06] MEDS: traZODone 50 MG TABLET PO SCH (20:16)
[2018-01-07] MEDS: Piperacillin/Tazobactam 3.375 GM in 0.9 % Sodium Chloride Mini Bag 100 ML IVPB SCH ×4 (00:41→23:22)
[2018-01-07] MEDS: *HR* Enoxaparin 40 MG/0.4 ML SYRINGE SQ SCH (05:12)
[2018-01-07] MEDS: Tiotropium 18 MCG inhalation IH SCH (07:34)
[2018-01-07] MEDS: Budesonide/Formoterol 80/4.5 MDI IH SCH ×2 (07:35→19:54)
[2018-01-07] MEDS: Famotidine 20 MG TABLET PO SCH (07:50)
[2018-01-07] MEDS: Gabapentin 400 MG CAPSULE PO SCH ×4 (07:50→21:09)
[2018-01-07] MEDS: Multivit/Ca/Min/Fe/FA 1 TAB TABLET PO SCH (07:50)
[2018-01-07] MEDS: Ciprofloxacin/Dex *EAR* Susp 7.5 ML BOTTLE RIGHT EAR SCH (07:51)
[2018-01-07] MEDS: Fluticasone Propionate Nasal 50 MCG/SPRAY BOTTLE NS SCH (07:51)
[2018-01-07] MEDS: predniSONE 10 MG TABLET PO SCH (08:02)
[2018-01-07] MEDS: Cholecalciferol (D-3) 1,000 UNIT TABLET PO SCH (08:03)
--- NOTE | 2018-01-07 08:07 | ENT - Progress Note ---
<Gibran Bird - Last Filed: 01/07/18 08:41> Date of Encounter: 01/07/18 - Assessment and Plan (1) Perichondritis and chondritis of right pinna Current Visit: Yes Status: Acute Patient seen and examined with [employer]OCATION COMMISSIONER. Agree with findings above and the plan above. Will continue to follow. (2) Otalgia, right ear Current Visit: Yes Status: Acute (3) Otitis externa of right ear Current Visit: Yes Status: Acute Qualifiers: Otitis externa type: unspecified type Chronicity: acute Qualified Code(s) : H60.501 - Unspecified acute noninfective otitis externa, right ear (4) Deviated nasal septum Current Visit: Yes Status: Acute (5) Impacted cerumen of left ear Current Visit: Yes Status: Acute Objective Initial Vital Signs Temp Pulse Resp BP Pulse Ox 98.5 F 94 18 155/86 96 01/05/18 12:12 01/05/18 12:12 01/05/18 12:12 01/05/18 12:12 01/05/18 12:12 - ENT Other (Right pinna noted to have less edema and redness today. Right EAC with less edema. Scant amount of blood present in right EAC due to wick insertion. No blood present within right ear wick. Wick noted to be saturated with Ciprodex solution. No drainage noted. Left EAC without edema or issue noted. Moderate amount of obstructing cerumen present. ) - Labs 01/06/18 05:29 01/06/18 05:29 Consult Discharge Plan - Plan Referrals: Pradeep Mehta MD [Primary Care Provider] - <Madie Avitia - Last Filed: 01/07/18 15:12> Date of Encounter: 01/07/18 Time of Encounter: 08:00 - Assessment and Plan (1) Perichondritis and chondritis of right pinna Current Visit: Yes Status: Acute Patient seen and examined this a.m. Patient's symptoms continue to improve, and patient is noted to have less edema and redness of the right pinna and EAC today. Continue Ciprodex eardrops twice daily for total of 7 days. Patient reported complaint of left ear otalgia this a.m. Left ear examined and no obvious issue noted. Moderate amount of cerumen noted. Ciprodex eardrops to be administered to left EAC twice daily as well. Continue oral steroids and IV antibiotics at this time. Subjective Patient reports: feels better, pain is less, other (patient reports left ear otalgia today as well) Objective Initial Vital Signs Temp Pulse Resp BP Pulse Ox 98.5 F 94 18 155/86 96 01/05/18 12:12 01/05/18 12:12 01/05/18 12:12 01/05/18 12:12 01/05/18 12:12 - General physical appearance well developed, well nourished, no distress - Eyes PERRL, normal ocular movement - ENT CN 2-12 grossly intact, Other (Right pinna noted to have less edema and redness today. Right EAC with less edema. Scant amount of blood present in right EAC due to wick insertion. No blood present within right ear wick. Wick noted to be saturated with Ciprodex solution. No drainage noted. Left EAC without edema or issue noted. Moderate amount of non obstructing cerumen present. ) - Neck trachea midline - Respiratory normal expansion, normal respiratory effort - Labs 01/06/18 05:29 01/06/18 05:29
--- NOTE | 2018-01-07 09:50 | Internal Med Progress Note ---
Hospitalist Progress Note - Encounter Date of Encounter: 01/07/18 Time of Encounter: 09:44 - Subjective Interval History: Patient seen and examined this morning. Further decrease in the redness swelling and pain. Denies fevers chills or diarrhea - Exam Vitals: Temp Pulse Resp BP Pulse Ox 98.1 F 63 16 126/79 97 01/07/18 05:26 01/07/18 05:26 01/07/18 07:37 01/07/18 05:26 01/07/18 07:37 Exam: - Head Head exam: Present: atraumatic, normocephalic EAR: Rt ear swollen pain full and red. Couldnt visualized TM due to pain. Pain, redness and swelling decreasing. Left ear painful with cerumen - Eye Eye exam: Present: PERRL, conjuntiva pink, sclera anicteric Pupils: Present: PERRL - Neck Neck exam general surgery: Present: supple, trachea midline. Absent: lymphadenopathy - Respiratory Respiratory exam: Present: CTAB. Absent: accessory muscle use, rales, rhonchi, wheezes - Cardiovascular Cardiovascular exam: Present: RRR, +S1, +S2. Absent: diastolic murmur, gallop, rubs, systolic murmur - GI/Abdominal GI/Abdominal exam: Present: normal bowel sounds, soft, no peritoneal signs. Absent: distended, tenderness - Extremities Exam Extremities exam: Present: warm, radial pulses palpable and symmetrical. Absent : calf tenderness, cyanotic, pedal edema - Skin Skin exam: Present: dry, intact - Assessment and Plan (1) Otalgia, right ear Current Visit: Yes Status: Acute Assessment and Plan: Patient has pain in the right ear from perichondritis and chondritis. Given the history of diabetes concern for mastoiditis and necrotizing otitis externa. CT scan showed mild of opacification of mastoid but no evidence of coalescent otomastoiditis. -Improving. Continue patient on IV vancomycin and Zosyn. Cultures pending. Continue steroids ENT consult appecreciated. (2) Fibromyalgia Current Visit: Yes Status: Acute Assessment and Plan: We will continue patient's home pain medication (3) COPD (chronic obstructive pulmonary disease) Current Visit: No Status: Chronic Assessment and Plan: Continue home Symbicort, prn albuterol (4) Diabetes mellitus Current Visit: No Status: Chronic Assessment and Plan: Hold patient's home metformin. Increased BG due to steroids. Increase levemir to 10. c/w Accu-Cheks. Sliding scale added. DVT Prophylaxis: lovenox. - Time Spent with Patient Total time spent is greater than 50% in coordination of care (as documented) at patient's floor/unit and/or counseling patient: Internal Medicine: Result - Labs CBC & Chem 7: 01/06/18 05:29 01/06/18 05:29 Consult Discharge Plan - Plan Referrals: Pradeep Mehta MD [Primary Care Provider] - (3) COPD (chronic obstructive pulmonary disease) Qualifiers: COPD type: unspecified COPD Qualified Code(s): J44.9 - Chronic obstructive pulmonary disease, unspecified (4) Diabetes mellitus Qualifiers: Diabetes mellitus type: type 2 Diabetes mellitus fci insulin use: without fci use Diabetes mellitus complication status: with unspecified complications Qualified Code(s): E11.8 - Type 2 diabetes mellitus with unspecified complications
[2018-01-07] MEDS: Insulin LISPRO 300 UNITS/3 ML VIAL SQ SCH ×2 (11:54→17:03)
[2018-01-07] MEDS: *HR* HYDROcodone/Acet 5/325 mg TABLET PO PRN (15:17)
[2018-01-07] MEDS: ALPRAZolam 1 MG TABLET PO PRN ×2 (18:26→21:16)
[2018-01-07] MEDS: Acetaminophen 325 MG TABLET PO PRN (19:06)
[2018-01-07] MEDS: traZODone 50 MG TABLET PO SCH (21:09)
[2018-01-07] MEDS: OLANZapine 10 MG TAB.RAPDIS PO SCH (21:10)
[2018-01-07] MEDS: Insulin DETEMIR 100 UNIT/ML X5UNITS SQ SCH (21:16)
[2018-01-07] MEDS: Ciprofloxacin/Dex *EAR* Susp 7.5 ML BOTTLE BOTH EARS SCH (21:17)
[2018-01-08] MEDS: *HR* HYDROcodone/Acet 5/325 mg TABLET PO PRN (05:00)
[2018-01-08] MEDS: *HR* Enoxaparin 40 MG/0.4 ML SYRINGE SQ SCH (05:04)
[2018-01-08] MEDS: Tiotropium 18 MCG inhalation IH SCH (07:35)
[2018-01-08] MEDS: Budesonide/Formoterol 80/4.5 MDI IH SCH ×2 (07:36→20:11)
--- NOTE | 2018-01-08 08:47 | ENT - Progress Note ---
Date of Encounter: 01/08/18 Time of Encounter: 08:44 - Assessment and Plan (1) Perichondritis and chondritis of right pinna Current Visit: Yes Status: Acute --Responding well to treatment. --Ok to transition to PO this evening or in AM tomorrow (Ciprofloxicin 750mg BID x 10 days --Would like patient to follow up in office next week --Will apply CSF to ear today --Discussed plan with patient and with hospitalist attending --Please contact office sooner if condition worsens or fails to continue to improve (2) Otalgia, right ear Current Visit: Yes Status: Acute (3) Otitis externa of right ear Current Visit: Yes Status: Acute Qualifiers: Otitis externa type: unspecified type Chronicity: acute Qualified Code(s) : H60.501 - Unspecified acute noninfective otitis externa, right ear (4) Deviated nasal septum Current Visit: Yes Status: Acute (5) Impacted cerumen of left ear Current Visit: Yes Status: Acute Subjective Patient reports: no new complaints, feels better (Severity of pain at 5/5. Some purulent drainage out of right ear. ), afebrile Objective Initial Vital Signs Temp Pulse Resp BP Pulse Ox 98.5 F 94 18 155/86 96 01/05/18 12:12 01/05/18 12:12 01/05/18 12:12 01/05/18 12:12 01/05/18 12:12 - General physical appearance no distress - ENT Other (There is decreased erythema and edema of the pinna, alma bowl, and the EAC. There is now a visible lumen in the Right EAC. Decreased tenderness to palpation. Left Cerumen Impaction.) - Labs 01/06/18 05:29 01/06/18 05:29 - VTE Documentation of Mechanical Device: Intermittent pneumatic compression device Consult Discharge Plan - Plan Referrals: Pradeep Mehta MD [Primary Care Provider] -
[2018-01-08] MEDS: Insulin LISPRO 300 UNITS/3 ML VIAL SQ SCH ×3 (09:12→18:06)
[2018-01-08] MEDS: Famotidine 20 MG TABLET PO SCH (09:14)
[2018-01-08] MEDS: Multivit/Ca/Min/Fe/FA 1 TAB TABLET PO SCH (09:14)
[2018-01-08] MEDS: Gabapentin 400 MG CAPSULE PO SCH ×4 (09:14→20:54)
[2018-01-08] MEDS: predniSONE 10 MG TABLET PO SCH (09:15)
[2018-01-08] MEDS: Cholecalciferol (D-3) 1,000 UNIT TABLET PO SCH (09:15)
[2018-01-08] MEDS: Piperacillin/Tazobactam 3.375 GM in 0.9 % Sodium Chloride Mini Bag 100 ML IVPB SCH ×2 (09:15→15:42)
[2018-01-08] MEDS: Ciprofloxacin/Dex *EAR* Susp 7.5 ML BOTTLE BOTH EARS SCH ×2 (09:15→22:10)
[2018-01-08] MEDS: Fluticasone Propionate Nasal 50 MCG/SPRAY BOTTLE NS SCH (09:15)
--- NOTE | 2018-01-08 09:17 | Internal Med Progress Note ---
Hospitalist Progress Note - Encounter Date of Encounter: 01/08/18 Time of Encounter: 09:15 - Subjective Interval History: Patient seen and examined this morning. Further decrease in the redness swelling and pain. Denies fevers chills or diarrhea - Exam Vitals: Temp Pulse Resp BP Pulse Ox 97.9 F 81 16 129/82 97 01/08/18 06:58 01/08/18 06:58 01/08/18 07:36 01/08/18 06:58 01/08/18 07:36 Exam: - Head Head exam: Present: atraumatic, normocephalic EAR: Rt ear sweating significantly reduced along with pain and redness. Left ear minimally painful with cerumen - Eye Eye exam: Present: PERRL, conjuntiva pink, sclera anicteric Pupils: Present: PERRL - Neck Neck exam general surgery: Present: supple, trachea midline. Absent: lymphadenopathy - Respiratory Respiratory exam: Present: CTAB. Absent: accessory muscle use, rales, rhonchi, wheezes - Cardiovascular Cardiovascular exam: Present: RRR, +S1, +S2. Absent: diastolic murmur, gallop, rubs, systolic murmur - GI/Abdominal GI/Abdominal exam: Present: normal bowel sounds, soft, no peritoneal signs. Absent: distended, tenderness - Extremities Exam Extremities exam: Present: warm, radial pulses palpable and symmetrical. Small follicular induration noted in the right axilla. Absent: calf tenderness, cyanotic, pedal edema - Skin Skin exam: Present: dry, intact - Assessment and Plan (1) Perichondritis and chondritis of right pinna Current Visit: Yes Status: Acute Assessment and Plan: -Patient has pain in the right ear from perichondritis and chondritis. - Responding well to antibiotic and steroids . CT scan showed mild of opacification of mastoid but no evidence of coalescent otomastoiditis. -Improving. Continue patient on IV vancomycin and Zosyn. Cultures pending. No growth to date. Switched to by mouth Cipro 750 twice a day for 10 days on discharge - Discussed with ENT. Has follow-up appointment scheduled. (2) Otalgia, right ear Current Visit: Yes Status: Acute (3) Fibromyalgia Current Visit: Yes Status: Acute Assessment and Plan: We will continue patient's home pain medication (4) COPD (chronic obstructive pulmonary disease) Current Visit: No Status: Chronic Assessment and Plan: Continue home Symbicort, prn albuterol (5) Diabetes mellitus Current Visit: No Status: Chronic Assessment and Plan: - Hold patient's home metformin. - Increased BG due to steroids. Increased levemir to 10. c/w Accu-Cheks. Sliding scale added. - Now well-controlled. DVT Prophylaxis: low risk, ambulatory - not indicated - Time Spent with Patient Total time spent is greater than 50% in coordination of care (as documented) at patient's floor/unit and/or counseling patient: Internal Medicine: Result - Labs CBC & Chem 7: 01/06/18 05:29 01/06/18 05:29 - VTE Documentation of Mechanical Device: Intermittent pneumatic compression device Consult Discharge Plan - Plan Referrals: Pradeep Mehta MD [Primary Care Provider] - (4) COPD (chronic obstructive pulmonary disease) Qualifiers: COPD type: unspecified COPD Qualified Code(s): J44.9 - Chronic obstructive pulmonary disease, unspecified (5) Diabetes mellitus Qualifiers: Diabetes mellitus type: type 2 Diabetes mellitus group home insulin use: without group home use Diabetes mellitus complication status: with unspecified complications Qualified Code(s): E11.8 - Type 2 diabetes mellitus with unspecified complications
[2018-01-08] MEDS: Acetaminophen 325 MG TABLET PO PRN (09:19)
[2018-01-08] MEDS ORDERED: Aminoglycoside Consult 1 EACH MC ONE (10:43)
[2018-01-08] MEDS: ALPRAZolam 1 MG TABLET PO PRN ×2 (15:41→22:10)
[2018-01-08] MEDS: OLANZapine 10 MG TAB.RAPDIS PO SCH (20:53)
[2018-01-08] MEDS: traZODone 50 MG TABLET PO SCH (20:54)
[2018-01-08] MEDS: Insulin DETEMIR 100 UNIT/ML X5UNITS SQ SCH (20:58)
[2018-01-09] MEDS: Piperacillin/Tazobactam 3.375 GM in 0.9 % Sodium Chloride Mini Bag 100 ML IVPB SCH ×2 (01:00→08:18)
[2018-01-09 06:34] VITALS: BP 123/73
[2018-01-09] MEDS: *HR* Enoxaparin 40 MG/0.4 ML SYRINGE SQ SCH (07:22)
--- NOTE | 2018-01-09 07:45 | Discharge Summary ---
- NOTES TO OUTPATIENT PROVIDER Notes to Outpatient Provider: To continue ciprofloxacin for 10 days. ENT follow up in one week. Orders not resulted at time of discharge: Pending orders 01/05/18 16:37 Culture,Blood [BC] Stat Date of Encounter: 01/09/18 Time of Encounter: 07:35 - Discharge Diagnosis (1) Perichondritis and chondritis of right pinna Priority: Primary Status: Acute (2) Otalgia, right ear Priority: Secondary Status: Acute (3) Fibromyalgia Priority: Secondary Status: Acute (4) COPD (chronic obstructive pulmonary disease) Priority: Secondary Status: Chronic Qualifiers: COPD type: unspecified COPD Qualified Code(s): J44.9 - Chronic obstructive pulmonary disease, unspecified (5) Diabetes mellitus Priority: Secondary Status: Chronic Qualifiers: Diabetes mellitus type: type 2 Diabetes mellitus care home insulin use: 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 Lockhart is a 57 year old female with past medical history of diabetes COPD dementia bipolar disorder fibromyalgia admitted for right ear pain found to have perichondritis incongruities in the right ear. Mild inflammation in the left years ago. ENT was consulted. Patient was treated with broad-spectrum antibiotics, by mouth steroids and Ciprodex drops. Patient improved. With the discharge today with the ciprofloxacin 750 mg twice a day for 10 days and Ciprodex. Discharge discussed with: patient, nurse - Time Spent with Patient Total time spent providing and/or coordinating discharge services: Greater than 30 minutes - Discharge Medications Prescriptions: Ciprofloxacin HCl 750 mg PO BID 10 Days #20 tablet Ciprofloxacin/Dex *EAR* Susp [Ciprodex *EAR* Susp] 4 drop BOTH EARS BID #1 bottle Home Medications: Alprazolam [Xanax] 2 mg PO TID 11/03/16 [History] Calcium Carbonate/Vitamin D3 [Calcium 500-Vit D3 200 Tablet] 1 each PO DAILY [History] Cholecalciferol (Vitamin D3) [Vitamin D3] 2,000 unit PO DAILY 11/03/16 [History] Donepezil [Aricept] 20 mg PO DAILY 11/03/16 [History] Gabapentin [Neurontin] 800 mg PO QID 11/03/16 [History] Metformin HCl [Metformin HCl ER] 1,500 mg PO QAM 11/03/16 [History] Multivitamin [Multi-Day Vitamins] 1 each PO DAILY 11/03/16 [History] OLANZapine [Zyprexa] 30 mg PO HS 11/03/16 [History] Trazodone HCl 300 mg PO HS 11/03/16 [History] Albuterol Sulfate [Ventolin Hfa] 2 puff IH Q6H PRN 08/24/17 [History] Esomeprazole Magnesium [Nexium] 40 mg PO DAILY 08/24/17 [History] Fluticasone Propionate Nasal [Flonase] 1 spr NS DAILY 08/24/17 [History] Fluticasone/Salmeterol [Advair 250-50 Diskus] 1 puff IH BID 08/24/17 [History] Ranitidine HCl [Zantac] 300 mg PO DAILY 08/24/17 [History] Tiotropium [Spiriva] 2 puff IH DAILY 08/24/17 [History] GuaiFENesin ER [Mucinex] 600 mg PO Q12H PRN #60 tbbp.12hr 08/26/17 [Rx] Omeprazole [PriLOSEC] 80 mg PO DAILY capsule. 08/26/17 [Rx] Amitriptyline [Elavil] 25 mg PO HS 01/06/18 [History] Atorvastatin [Lipitor] 40 mg PO HS 01/06/18 [History] Insulin Glargine,Hum.rec.anlog [Lantus Solostar] 10 - 50 units SQ QAM 01/06/18 [ History] Mirabegron [Myrbetriq] 50 mg PO DAILY 01/06/18 [History] Ciprofloxacin HCl 750 mg PO BID 10 Days #20 tablet 01/09/18 [Rx] Ciprofloxacin/Dex *EAR* Susp [Ciprodex *EAR* Susp] 4 drop BOTH EARS BID #1 bottle 01/09/18 [Rx] Allergies/Adverse Reactions: 3 Allergy/AdvReac Type Severity Reaction Status Date / Time No Known Allergies Allergy Verified 01/05/18 12:14 Date of admission: 01/05/18 15:05 Primary care physician: Pradeep Mehta MD Discharging clinician: Leonard Sylvester - Constitutional Vitals: Temp Pulse Resp BP Pulse Ox 98.6 F 60 14 123/73 98 01/09/18 06:31 01/09/18 06:31 01/09/18 06:31 01/09/18 06:31 01/09/18 06:31 Exam: - Head Head exam: Present: atraumatic, normocephalic EAR: Rt ear swelling significantly reduced along with pain and redness. Left ear minimally painful with cerumen - Eye Eye exam: Present: PERRL, conjuntiva pink, sclera anicteric Pupils: Present: PERRL - Neck Neck exam general surgery: Present: supple, trachea midline. Absent: lymphadenopathy - Respiratory Respiratory exam: Present: CTAB. Absent: accessory muscle use, rales, rhonchi, wheezes - Cardiovascular Cardiovascular exam: Present: RRR, +S1, +S2. Absent: diastolic murmur, gallop, rubs, systolic murmur - GI/Abdominal GI/Abdominal exam: Present: normal bowel sounds, soft, no peritoneal signs. Absent: distended, tenderness - Extremities Exam Extremities exam: Present: warm, radial pulses palpable and symmetrical. Small follicular induration noted in the right axilla. Absent: calf tenderness, cyanotic, pedal edema - Skin Skin exam: Present: dry, intact - Patient Status Disposition: Home, Self-Care Condition: Fair - Discharge Instructions Follow Up With: Pradeep Mehta MD [Primary Care Provider] - - Diet and Activity Activity: resume usual activities as tolerated - VTE Documentation of Mechanical Device: Intermittent pneumatic compression device
[2018-01-09] MEDS: Budesonide/Formoterol 80/4.5 MDI IH SCH (07:52)
[2018-01-09] MEDS: Tiotropium 18 MCG inhalation IH SCH (07:52)
[2018-01-09] MEDS: Insulin LISPRO 300 UNITS/3 ML VIAL SQ SCH (08:14)
[2018-01-09] MEDS: Famotidine 20 MG TABLET PO SCH (08:14)
[2018-01-09] MEDS: Multivit/Ca/Min/Fe/FA 1 TAB TABLET PO SCH (08:14)
[2018-01-09] MEDS: Gabapentin 400 MG CAPSULE PO SCH (08:15)
[2018-01-09] MEDS: predniSONE 10 MG TABLET PO SCH (08:15)
[2018-01-09] MEDS: Cholecalciferol (D-3) 1,000 UNIT TABLET PO SCH (08:15)
[2018-01-09] MEDS: Fluticasone Propionate Nasal 50 MCG/SPRAY BOTTLE NS SCH (08:17)
[2018-01-09] MEDS: Ciprofloxacin/Dex *EAR* Susp 7.5 ML BOTTLE BOTH EARS SCH (08:17)
[2018-01-09] MEDS: ALPRAZolam 1 MG TABLET PO PRN (10:03)
== END 2018-01-09 10:44 | disposition home or self-care (01) ==
LOC: EMEROOARM 12:07 → 3ANU 12:07 → SUATTDRO 15:05 → 3ANU 15:13
PROVIDERS: ADMIT Internal Medicine; ATTEND Internal Medicine